=== PATIENT | female | born 1955 | race Caucasian/White ===

== ENCOUNTER → 2017-01-06 | Outpatient (CLI) | payer MEDICAID, SELFPAY | PROVIDERS: Family Provider Physician Assistant; Visit Provider Physician Assistant | DX: R10.13 Epigastric pain (principal) ==

== ENCOUNTER 2017-02-11 07:10 | Day surgery (SDC) | payer MEDICAID, SELFPAY ==
[2017-02-10 11:09] VITALS: BMI 31.6
[2017-02-11] VITALS (10 sets, daily range): BP systolic 113–131; BP diastolic 65–78; PULSE 62–72; RESP 12–20; TEMP 36.3–36.4; O2SAT 94–100
--- NOTE | 2017-02-11 08:32 | HMH.SCOPE ---
- Procedure: Date/Time of Procedure:: 02/11/17 08:32 Procedure Performed:: Esophagogastroduodenoscopy with biopsies Indications:: 61-year-old white female from [place]. For about 3 months she has had epigastric pain. She states that when she drinks coffee or diet carbonated beverages she has pain described as burning and nausea. She also has chronic loose stools but underwent normal colonoscopy 2 years ago at [facility]. Plan was made for upper endoscopy. Of note, the patient is on sucralfate. Performing Provider:: Car Heath MD Referring Provider:: Tiffanie dickinson Sedation:: Versed, fentanyl Procedure:: Esophagogastroduodenoscopy with biopsies Findings:: Consent was obtained and patient was taken to endoscopy procedure room. Adequate intravenous sedation was achieved. Olympus endoscope was inserted via the oropharynx. Esophagus appeared normal. There is no evidence of any stricture or Dumas's esophagus. Stomach was cannulated and insufflated. Retroflexion revealed no evidence of any significant hiatal hernia. There was some linear gastritis resembling watermelon stomach . There is also a couple patchy exudative erosions. Pylorus was normal. Duodenal bulb and sweep were normal. Gastric antral mucosal biopsy was obtained for CLOtest for H. pylori. Biopsies were obtained of the areas of gastritis. A couple of biopsies were obtained of the gastroesophageal junction. Impressions:: Gastritis Recommendations:: Follow-up on biopsy results. May benefit from proton pump inhibitors with or without the continue to sucralfate. Treat H. pylori if positive Complications:: None Estimated blood obtained (mL): 2
== END 2017-02-11 09:45 | disposition home or self-care (01) ==
LOC: OUTP 07:13
PROVIDERS: PCP Emergency Medicine; Visit Provider Surgery
PROC: 0DJ08ZZ Inspection of Upper Intestinal Tract, Via Natural or Artificial Opening Endoscopic (ICD-10-PCS; CPT 43235; principal; 2017-02-11 08:00)
DX: K29.70 Gastritis, unspecified, without bleeding (principal)
CPT/HCPCS: 43239; 87339; 99152

== ENCOUNTER 2017-02-16 10:01 | Emergency (ER) | payer MEDICAID, SELFPAY ==
[2017-02-16 10:32] VITALS: BP 174/80; PULSE 102; RESP 14; TEMP 37.3; O2SAT 97; BMI 31.2
[2017-02-16 22:13] LABS: UTC Influenza A Antigen Negative (Negative); UTC Influenza B Antigen Negative (Negative)
== END 2017-02-16 12:00 | disposition home or self-care (01) ==
PROVIDERS: Emergency Provider Physician Assistant; PCP Emergency Medicine
DX: R05 Cough (principal); I10 Essential (primary) hypertension; E03.9 Hypothyroidism, unspecified; Z79.899 Other long term (current) drug therapy
CPT/HCPCS: 87276; 87804; 99202

== ENCOUNTER → 2017-05-16 12:29 | Outpatient (CLI) | payer MEDICAID, SELFPAY ==
[2017-05-16 12:49] LABS: Blood Urea Nitrogen 14 mg/dL (7-18); Creatinine,Serum 0.81 mg/dL (0.55-1.02); Estimated Glomerular Filt Rate 72 ml/min (>60); GFR (African American) 87 ML/MIN (>60)
--- NOTE | 2017-05-16 13:58 | CT_ITS ---
CT angio abdomen pelvis COMPARISON: CT scan abdomen pelvis 11/07/2016 HISTORY: Persistent abdominal pain clinical suspicion of possible abdominal angina and/or decreased blood flow to the bowel TECHNIQUE: Multiple axial scans obtained from hemidiaphragms the pelvic floor after injection of IV contrast. Sagittal and coronal reformats were evaluated as well. Also 3-D volume rendering imaging of the vascular anatomy was reviewed. FINDINGS: The lower lung grace are clear. Liver spleen stomach and pancreas appear normal. There has been a previous cholecystectomy. The adrenal glands are normal. The kidneys are normal size and show symmetrical function both appearing normal. The small bowel appears grossly normal. I do not definitely identify the appendix but there are no pericecal inflammatory changes. There is moderate stool throughout the colon, there is minimal diverticular disease of the sigmoid colon without diverticulitis. Urinary bladder is grossly normal. There is excellent vascular opacification. There is no evidence of aortic aneurysm. 3-D volume rendering imaging demonstrates a normal-appearing celiac artery and severe mesenteric artery and its branches. The inferior mesenteric artery is identified as well which appears grossly normal. There are single renal arteries bilaterally both appearing normal. The aortic bifurcation appears normal and the common iliac arteries appear normal. IMPRESSION: 1. Normal CT angiogram of the abdomen no vascular abnormality identified. 2. Minimal diverticulosis of the sigmoid colon without diverticulitis
--- NOTE | 2017-05-16 15:56 | HMH.ITSHM ---
OMEPRAZOLE AMLODIPINE ALENDRONATE BISOPROLOL FUMARATE PANTOPRAZOLE
== END ==
PROVIDERS: PCP Emergency Medicine; Visit Provider Surgery
DX: K21.9 Gastro-esophageal reflux disease without esophagitis (principal)
CPT/HCPCS: 36415; 74174; 82565; 84520; Q9967

== ENCOUNTER → 2017-06-25 10:38 | Outpatient (REF) | payer MEDICAID, SELFPAY ==
[2017-06-25 13:40] LABS: Basophils % 0.5 % (0.1-2.0); Eosinophils # 0.1 K/mm3 (0.0-0.4); Eosinophils % 1.2 % (0.1-12.0); Hematocrit 42.7 % (37.0-47.0); Hemoglobin 14.2 g/dL (12.2-16.2); Lymphocytes # 2.2 K/mm3 (0.7-4.5); Lymphocytes % 35.9 K/mm3 (10-50); Mean Corpuscular HGB Conc 33.2 g/dL (31.8-35.4); Mean Corpuscular Hemoglobin 28.7 pg (27.0-31.2); Mean Corpuscular Volume 86.4 fl (81-99); Mean Platelet Volume 7.5 fl (7.4-10.4); Monocytes # 0.3 K/mm3 (0.1-1.0); Monocytes % 5.3 % (1.7-9.3); Neutrophils # 3.4 K/mm3 (1.8-7.8); Neutrophils % 57.2 % (37.0-80.0); Platelet Count 232 K/mm3 (142-424); Red Blood Count 4.94 M/mm3 (4.20-5.40)
[2017-06-25 14:39] LABS: Alanine Aminotransferase 36 U/L (12-78); Albumin Level 4.2 gm/dL (3.4-5.0); Albumin/Globulin Ratio 1.4 (1.1-1.8); Alkaline Phosphatase 82 U/L (46-116); Aspartate Amino Transferase 23 U/L (15-37); Bilirubin,Total 0.3 mg/dL (0.2-1.0); Blood Urea Nitrogen 12 mg/dL (7-18); Calcium 9.7 mg/dL (8.5-10.1); Chloride 106 mmol/L (98-107); Chol/HDL Ratio 3.4 (1-3.5); Cholesterol 186 mg/dL (140-200); Creatinine,Serum 0.77 mg/dL (0.55-1.02); Estimated Glomerular Filt Rate 76 ml/min (>60); GFR (African American) 92 ML/MIN (>60); Glucose 95 mg/dL (74-106); HDL Cholesterol 55 mg/dL (29-89); LDL Cholesterol 112 mg/dL (0-130); Potassium 4.6 mmoL/L (3.5-5.1); Sodium 142 mmol/L (136-145); T4 (Thyroxine) 6.4 ug/dl (4.7-13.3); Thyroid Stimulating Hormone 14.84 uIU/ml (0.358-3.740); Total Protein,Serum 7.2 gm/dL (6.4-8.2); Triglycerides 93 mg/dL (30-200); VLDL Cholesterol 19 mg/dL (0-40)
[2017-06-25 14:41] LABS: Anion Gap 15.6 mEq/L (5-15); Carbon Dioxide 25 mmol/L (21.0-32.0)
[2017-06-26 13:32] LABS: Vitamin D 25 Hydroxy 13.8 ng/mL (30.0-100.0)
== END ==
LOC: LAB 10:38
PROVIDERS: Visit Provider Physician Assistant
DX: E03.9 Hypothyroidism, unspecified (principal); I10 Essential (primary) hypertension
CPT/HCPCS: 80053; 80061; 82652; 84436; 84443; 85025

== ENCOUNTER → 2017-12-01 15:31 | Outpatient (REF) | payer MEDICAID, SELFPAY ==
[2017-12-01 17:55] LABS: Basophils % 0.3 % (0.1-2.0); Eosinophils # 0.1 K/mm3 (0.0-0.4); Eosinophils % 0.7 % (0.1-12.0); Hematocrit 41.7 % (37.0-47.0); Hemoglobin 14.1 g/dL (12.2-16.2); Lymphocytes # 2.4 K/mm3 (0.7-4.5); Lymphocytes % 37.3 K/mm3 (10-50); Mean Corpuscular HGB Conc 33.8 g/dL (31.8-35.4); Mean Corpuscular Hemoglobin 29.6 pg (27.0-31.2); Mean Corpuscular Volume 87.8 fl (81-99); Mean Platelet Volume 8.4 fl (7.4-10.4); Monocytes # 0.3 K/mm3 (0.1-1.0); Monocytes % 5.1 % (1.7-9.3); Neutrophils # 3.6 K/mm3 (1.8-7.8); Neutrophils % 56.6 % (37.0-80.0); Platelet Count 257 K/mm3 (142-424); Red Blood Count 4.75 M/mm3 (4.20-5.40); Red Cell Distribution Width 13.5 % (11.5-17.5); White Blood Count 6.3 K/mm3 (4.8-10.8)
[2017-12-01 18:26] LABS: Alanine Aminotransferase 35 U/L (12-78); Albumin Level 4.2 gm/dL (3.4-5.0); Albumin/Globulin Ratio 1.4 (1.1-1.8); Alkaline Phosphatase 76 U/L (46-116); Anion Gap 12.3 mEq/L (5-15); Aspartate Amino Transferase 22 U/L (15-37); Bilirubin,Total 0.4 mg/dL (0.2-1.0); Blood Urea Nitrogen 12 mg/dL (7-18); Calcium 8.9 mg/dL (8.5-10.1); Carbon Dioxide 27 mmol/L (21.0-32.0); Chloride 106 mmol/L (98-107); Cholesterol 178 mg/dL (140-200); Creatinine,Serum 0.75 mg/dL (0.55-1.02); Estimated Glomerular Filt Rate 78 ml/min (>60); Free T4 (Free Thyroxine) 0.92 ng/dl (0.76-1.46); GFR (African American) 95 ML/MIN (>60); Glucose 92 mg/dL (74-106); HDL Cholesterol 60 mg/dL (29-89); LDL Cholesterol 104 mg/dL (0-130); Potassium 4.3 mmoL/L (3.5-5.1); Sodium 141 mmol/L (136-145); Thyroid Stimulating Hormone 5.65 uIU/ml (0.358-3.740); Total Protein,Serum 7.2 gm/dL (6.4-8.2); Triglycerides 69 mg/dL (30-200); VLDL Cholesterol 14 mg/dL (0-40)
[2017-12-03 15:55] LABS: Vitamin D 25 Hydroxy 22.5 ng/mL (30.0-100.0)
== END ==
LOC: LAB 15:31
PROVIDERS: PCP Physician Assistant; Visit Provider Physician Assistant
DX: E03.9 Hypothyroidism, unspecified (principal); E55.9 Vitamin D deficiency, unspecified; I10 Essential (primary) hypertension; I48.0 Paroxysmal atrial fibrillation
CPT/HCPCS: 80053; 80061; 82652; 84439; 84443; 85025

== ENCOUNTER → 2018-05-07 13:48 | Outpatient (CLI) | payer MEDICAID, SELFPAY ==
[2018-05-07 14:06] LABS: Basophils % 0.3 % (0.1-2.0); Eosinophils % 0.6 % (0.1-12.0); Hematocrit 41.2 % (37.0-47.0); Hemoglobin 13.9 g/dL (12.2-16.2); Lymphocytes # 2.2 K/mm3 (0.7-4.5); Lymphocytes % 35.4 % (10-50); Mean Corpuscular HGB Conc 33.7 g/dL (31.8-35.4); Mean Corpuscular Hemoglobin 29.9 pg (27.0-31.2); Mean Corpuscular Volume 88.7 fl (81-99); Mean Platelet Volume 7.5 fl (7.4-10.4); Monocytes # 0.3 K/mm3 (0.1-1.0); Monocytes % 5.2 % (1.7-9.3); Neutrophils # 3.6 K/mm3 (1.8-7.8); Neutrophils % 58.5 % (37.0-80.0); Platelet Count 243 K/mm3 (142-424); Red Blood Count 4.64 M/mm3 (4.20-5.40); Red Cell Distribution Width 13.9 % (11.5-17.5); White Blood Count 6.2 K/mm3 (4.8-10.8)
[2018-05-07 14:25] LABS: Alanine Aminotransferase 35 U/L (12-78); Albumin Level 4.1 gm/dL (3.4-5.0); Albumin/Globulin Ratio 1.3 (1.1-1.8); Alkaline Phosphatase 73 U/L (46-116); Anion Gap 16.4 mEq/L (5-15); Aspartate Amino Transferase 20 U/L (15-37); Bilirubin,Total 0.4 mg/dL (0.2-1.0); Blood Urea Nitrogen 16 mg/dL (7-18); Calcium 9.2 mg/dL (8.5-10.1); Carbon Dioxide 25 mmol/L (21.0-32.0); Chloride 106 mmol/L (98-107); Chol/HDL Ratio 2.7 (1-3.5); Cholesterol 180 mg/dL (140-200); Creatinine,Serum 0.67 mg/dL (0.55-1.02); Estimated Glomerular Filt Rate 89 ml/min (>60); GFR (African American) 108 ML/MIN (>60); Globulin 3.1 gm/dl (1.3-3.2); Glucose 96 mg/dL (74-106); HDL Cholesterol 66 mg/dL (29-89); LDL Cholesterol 99 mg/dL (0-130); Potassium 4.4 mmoL/L (3.5-5.1); Sodium 143 mmol/L (136-145); T4 (Thyroxine) 8.4 ug/dl (4.7-13.3); Thyroid Stimulating Hormone 5.02 uIU/ml (0.358-3.740); Total Protein,Serum 7.2 gm/dL (6.4-8.2); Triglycerides 76 mg/dL (30-200); VLDL Cholesterol 15 mg/dL (0-40)
[2018-05-08 09:02] LABS: Vitamin D 25 Hydroxy 15.3 ng/mL (30.0-100.0)
== END ==
PROVIDERS: Visit Provider Physician Assistant
DX: E03.9 Hypothyroidism, unspecified (principal); I10 Essential (primary) hypertension; E55.9 Vitamin D deficiency, unspecified
CPT/HCPCS: 80053; 80061; 82652; 84436; 84443; 85025

== ENCOUNTER → 2018-05-13 12:04 | Outpatient (CLI) | payer MEDICAID, SELFPAY ==
--- NOTE | 2018-05-13 12:10 | XR_ITS ---
EXAM: XR lumbar spine min 4V HISTORY: ITS.REASON: Low back pain, sciatica ORDERING PHYSICIAN: AMANDA Link PATIENT AGE: 62 years COMPARISON: CT scan abdomen pelvis 05/16/2017 FINDINGS: There is normal curvature and alignment. All lumbar vertebrae appear intact. There is minor disc space narrowing at the L2-3 level with minimal osteophytic spurring. There is no pars defect. The SI joints are normal. There are minor hypertrophic facet changes at the L3-4, L4-5 and L5-S1 levels. IMPRESSION: Minor degenerative disc disease L2-3 along with facet changes lower lumbar spine
== END ==
PROVIDERS: PCP Physician Assistant; Visit Provider Physician Assistant
DX: M54.40 Lumbago with sciatica, unspecified side (principal); M54.5 Low back pain
CPT/HCPCS: 72110

== ENCOUNTER → 2018-06-02 12:35 | Outpatient (CLI) | payer MEDICAID, SELFPAY ==
--- NOTE | 2018-06-02 12:37 | MM_ITS ---
MM Dig screening mamm BI w/CAD CAD Screening COMPARISON: Digital mammograms with CAD 11/09/2015 INDICATION: There is no personal or family history of breast cancer TECHNIQUE: Standard CC and MLO images were obtained. R2 CAD reviewed. FINDINGS: The breasts are composed primarily of fat with minimal scattered fibroglandular densities in each breast. There is faint arterial calcination in each breast. There is no suspicious lesion and there are no suspicious microcalcifications. IMPRESSION: Fibro fatty parenchyma with no suspicious lesion seen BI-RADS Category: 2 Benign Finding(s) RECOMMENDED FOLLOW-UP: 1YR - 1 YEAR FOLLOW-UP (A letter has been sent to the patient regarding results of the study.)
== END ==
PROVIDERS: PCP Physician Assistant; Visit Provider Physician Assistant
DX: Z12.31 Encounter for screening mammogram for malignant neoplasm of breast (principal)
CPT/HCPCS: 77067

== ENCOUNTER 2018-07-29 10:00 | Outpatient (RCR) | payer MEDICAID, SELFPAY ==
--- NOTE | 2018-06-09 16:48 | HMH.PTOPEV ---
PT Outpatient Evaluation Rehab PT Outpatient Evaluation Start: 06/09/18 15:30 Freq: Status: Active Protocol: Document 06/09/18 15:30 PDESEROUX (Rec: 06/09/18 16:48 [email or web address] [id number]) Electronically Signed By Kaden Camejo, PT 06/09/18 15:30 Outpatient Therapy Subjective History Subjective History Pt. is a 62 year old female who presents to outpatient PT for complaints of chronic R hip/RLB/RLE pain on insidious onset that worsened 5 months ago. Pt. reports shooting/burning pain inferiorly down RLE just inferior to her R knee. Recent diagnostic imaging postivie for minor degenerative disc disease L2-3 along with facet changes lower lumbar spine. Pt . also reports having cortisone injections in the past that did not provide symptom relief. Current medications include Lortab, blood pressure medicine , Vitamin D, and thyroid medicine. PMH includes HTN, L femoral surgical reconstruction, complete hysterectomy, and preosteoperotic. Chief Complaint Pain,Gives out/Unstable, Paresthesia Symptom Type Sharp,Burning,Shooting Symptoms Relieved By Rest/Positioning,Heat,Ice, Prescription Meds Symptoms Aggravated By Supine,Sitting,Standing, Bending/Stooping,Physical Activity,Walking,Lifting Prior Functional Limitations None Current Functional Limitations Lifting,Housework,Driving, Sleeping,Standing,Sitting, Squatting,Recreation Activity, Walking,Stairs,Balance,Bending /Stooping Symptom Description Constant and Continuous Level of pain today (0-10) 7 Pain scale - at its best (0-10) 3 Pain scale - at its worst (0-10) 10 Lumbopelvic Eval Posture Thoracic Spine Posture Standing Position Increased Kyphosis Lumbar Spine Posture Standing Position Flattened Assistive device Assistive Devices None / NA Gait Observation General Gait Pattern Observation Antalgic Gait,Decrease Weight
== END 2018-07-29 13:00 | disposition home or self-care (01) ==
LOC: PT.CARL 10:00
PROVIDERS: Visit Provider Physician Assistant
DX: M54.31 Sciatica, right side (principal)
CPT/HCPCS: 97010; 97012; 97014; 97033; 97110; 97140; 97163; G0283

== ENCOUNTER → 2018-08-26 12:51 | Outpatient (CLI) | payer MEDICAID, SELFPAY ==
--- NOTE | 2018-08-26 12:52 | MR_ITS ---
MR lumbar spine wo con, MR 3-d myelogram/MRCP HISTORY: Lower back pain into right leg and hip, symptoms off and on X1 year. ITS.REASON: back pain ORDERING PHYSICIAN: AMANDA Mistry PATIENT AGE: 62 years Comparison: 05/13/2018 TECHNIQUE: Standard multiplanar multiecho sequences are performed without contrast. 3-D MIP and myelographic images are also rendered and reviewed FINDINGS: Normal alignment. The spinal cord ends at the L1 level. T12-L1: Unremarkable. L1-L2: Unremarkable. L2-L3: Mild facet and ligamentum flavum hypertrophy. Mild bilateral lateral recess narrowing. L3-L4: Unremarkable. L4-5: Minimal bulging disc with mild facet and ligamentum flavum hypertrophy with mild bilateral lateral recess narrowing L5-S1: Minimal bulging disc. Mild bilateral foraminal narrowing. No canal stenosis or disc herniation. IMPRESSION: Mild lumbar spondylosis. Please see above for detailed description at each level. No disc herniation or canal stenosis.
== END ==
PROVIDERS: PCP Physician Assistant; Visit Provider Physician Assistant
DX: M54.41 Lumbago with sciatica, right side (principal)
CPT/HCPCS: 72148; 76376

== ENCOUNTER → 2018-09-21 08:38 | Outpatient (POV) | payer MEDICAID, SELFPAY ==
[2018-09-21 08:42] VITALS: BP 166/95; PULSE 89; RESP 18; O2SAT 98; BMI 31.1
--- NOTE | 2018-09-21 10:02 | HMH.PMCON ---
Assessment and Plan (1) Degenerative joint disease (DJD) of lumbar spine Current visit: Yes Status: Chronic Category: Medical Code(s): M47.816 - Spondylosis without myelopathy or radiculopathy, lumbar region (2) Sacroiliitis Current visit: Yes Status: Chronic Category: Medical Code(s): M46.1 - Sacroiliitis, not elsewhere classified - Assessment and plan all Dx Assessment and Plan for all problems:: We will start by scheduling a right SI joint injection for the patient. I believe it may be beneficial given the symptomology. Patient and I discussed if it was not beneficial potentially a lumbar epidural steroid injection. I will follow-up with the patient after injection reassess her symptoms at that time she is been instructed to call the office if she has any issues prior to her next appointment. Dr. Adame has reviewed this note and agrees with this plan of care. This note was dictated using voice recognition software and may contain errors or omissions HPI - Data of Consult Consult date: 09/21/18 Requesting Physician: Sharri Shah APRN Primary Care Provider: AMANDA Mistry - Consult Narrative Reason for consult: Back pain, right leg pain History of present illness: Ms. Reeder is a 62 year old female who presents today for consultation in regards to her right lower back pain that radiates to her right leg to the knee. This happened after a fall in which she had her left femur operated on. Patient does have an MRI showing some degenerative disc disease along with bulging disc and is her low back however her pain is over the right SI joint. She rates her pain today a 6 out of 10. She is completed physical therapy however she did not get much relief from it. She is unable to take NSAIDs due to gastric issues. She is not on any anticoagulation therapy. She is continuing a home stretching program. She is had this pain for over a year. CC: Sharri Shah APRN [facility] History I have reviewed the patient's past medical history: Yes 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: Reports:: Atrial Fibrillation, Carotid Stenosis, Hypertension, Internal Pacemaker Denies:: Diabetes Mellitus Type 1, Diabetes Mellitus Type 2, Lung Disease, Seizures *Have you ever received a pneumonia vaccine?: Yes *Have you received a flu vaccine this season?: Yes Other 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: Reports: Arthritis, Hypothyroidism, Other Laterality Cases: Left: Other Other Surgeries: Yes: Cardiac Catheterization (found abnormal heart beat), Cholecystectomy, Colonoscopy, EGD, Hysterectomy-Total, Pacemaker, Other (Gallbladder) Amputation: No Fractures: No - *Social History Smoking Status: Never smoker Alcohol Intake: never Alcohol Intake Frequency:: other Substance Use Type: denies use *Occupational Status:: other Housing: house Household Members: spouse *Travel in the last 8 weeks: None Family Hx:: Cancer Review of Systems - Review of Systems ROS General: no recent weight change, no fever, no sleep disturbances Respiratory: no cough, no shortness of air, no recurring pulmonary infections Cardiovascular/Peripheral Vascular: No chest pain, No palpitations, no edema, no shortness of breath. Gastrointestinal: no incontinence, normal bowel movements reported Genitourinary: no incontinence Musculoskeletal: SI joint pain, low back pain Psychiatric: normal mood/ affect Neurological: [denies weakness in extremities], [denies balance issues] Meds Home Medications Medication Instructions Recorded Confirmed Type cholecalciferol (vitamin D3) 1,000 1,000 unit PO ONCE 90 Days #90 cap 12/01/17 09/02/18 Rx unit capsule clonidine HCl 0.3 mg tablet 0.3 mg PO Q8H #90 tab 12/01/17 09/02/18 Rx ergocalciferol (vitamin D2) 50,000 50,000 unit PO QWEEK 90 Days #14 12/01/17 09/02/18 Rx unit capsule cap losartan 100 1 tab PO DAILY #90 tab 12/01/17 09/02/18 Rx mg-hydrochlorothiazide 25 mg tablet pantoprazole 40 mg tablet,delayed 40 mg PO QDAY
--- NOTE | 2018-09-21 10:11 | P.CONS_ITS ---
Assessment and Plan (1) Degenerative joint disease (DJD) of lumbar spine Current visit: Yes Status: Chronic Category: Medical Code(s): M47.816 - Spondylosis without myelopathy or radiculopathy, lumbar region (2) Sacroiliitis Current visit: Yes Status: Chronic Category: Medical Code(s): M46.1 - Sacroiliitis, not elsewhere classified - Assessment and plan all Dx Assessment and Plan for all problems:: We will start by scheduling a right SI joint injection for the patient. I believe it may be beneficial given the symptomology. Patient and I discussed if it was not beneficial potentially a lumbar epidural steroid injection. I will follow-up with the patient after injection reassess her symptoms at that time she is been instructed to call the office if she has any issues prior to her next appointment. Dr. Adame has reviewed this note and agrees with this plan of care. This note was dictated using voice recognition software and may contain errors or omissions HPI - Data of Consult Consult date: 09/21/18 Requesting Physician: Sharri Shah APRN Primary Care Provider: AMANDA Mistry - Consult Narrative Reason for consult: Back pain, right leg pain History of present illness: Ms. Reeder is a 62 year old female who presents today for consultation in regards to her right lower back pain that radiates to her right leg to the knee. This happened after a fall in which she had her left femur operated on. Patient does have an MRI showing some degenerative disc disease along with bulging disc and is her low back however her pain is over the right SI joint. She rates her pain today a 6 out of 10. She is completed physical therapy however she did not get much relief from it. She is unable to take NSAIDs due to gastric issues. She is not on any anticoagulation therapy. She is continuing a home stretching program. She is had this pain for over a year. CC: Sharri Shah APRN [facility] History I have reviewed the patient's past medical history: Yes 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: Reports:: Atrial Fibrillation, Carotid Stenosis, Hypertension, Internal Pacemaker Denies:: Diabetes Mellitus Type 1, Diabetes Mellitus Type 2, Lung Disease, Seizures *Have you ever received a pneumonia vaccine?: Yes *Have you received a flu vaccine this season?: Yes Other 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: Reports: Arthritis, Hypothyroidism, Other Laterality Cases: Left: Other Other Surgeries: Yes: Cardiac Catheterization (found abnormal heart beat), Cholecystectomy, Colonoscopy, EGD, Hysterectomy-Total, Pacemaker, Other (G allbladder) Amputation: No Fractures: No - *Social History Smoking Status: Never smoker Alcohol Intake: never Alcohol Intake Frequency:: other Substance Use Type: denies use *Occupational Status:: other Housing: house Household Members: spouse *Travel in the last 8 weeks: None Family Hx:: Cancer Review of Systems - Review of Systems ROS General: no recent weight change, no fever, no sleep disturbances Respiratory: no cough, no shortness of air, no recurring pulmonary infections Cardiovascular/Peripheral Vascular: No chest pain, No palpitations, no edema, no shortness of breath. Gastrointestinal: no incontinence, normal bowel movements reported Genitourinary: no incontinence Musculoskeletal: SI joint pain, low back pain Psychiatric: normal mood/ affect Neurological: [denies weakness in extremities], [denies balance issues] Meds Home Medications Medication Instructions Recorded Confi
== END ==
PROVIDERS: PCP Physician Assistant; Visit Provider Clinical Nurse Specialist Family Health
DX: M47.816 Spondylosis without myelopathy or radiculopathy, lumbar region (principal); M46.1 Sacroiliitis, not elsewhere classified
CPT/HCPCS: 99212

== ENCOUNTER → 2018-10-26 09:31 | Outpatient (POV) | payer MEDICAID, SELFPAY ==
[2018-10-26 10:17] VITALS: BP 157/83; PULSE 88; RESP 18; O2SAT 98; BMI 30.5
--- NOTE | 2018-10-26 10:34 | HMH.PAINSOAP ---
[facility] Pain Management SOAP Note Subjective:: Patient is a pleasant 62-year-old white female who presents today for follow-up after right SI joint injection. She did not get any relief from it. Patient and I have discussed potential epidural steroid injection and she would like to pursue this. Patient rates her pain a 7 out of 10 with right leg radiation. She does have an MRI showing degenerative disc disease. She is not on any anticoagulation therapy. She has failed conservative measures including anti-inflammatories. ROS General: no recent weight change, no fever, no sleep disturbances Respiratory: no cough, no shortness of air, no recurring pulmonary infections Cardiovascular/Peripheral Vascular: No chest pain, No palpitations, no edema, no shortness of breath. Gastrointestinal: no incontinence, normal bowel movements reported Genitourinary: no incontinence Musculoskeletal: Back pain, leg pain Psychiatric: normal mood/ affect Neurological: [denies weakness in extremities], [denies balance issues] Objective:: Physical Exam General: Alert and oriented x3, no acute distress, pleasant and cooperative, [on room air] Lungs: Resps E/U, Symmetrical chest expansion, Eyes: PERRL Musculoskeletal: Flexion and extension of lumbar spine somewhat guarded secondary to pain, deep tendon reflexes normal, strength in upper and lower extremities [5/5], slightly antalgic gait noted Neurological: speech clear, health diagnostics teacher equal, no gross sensory deficits Assessment:: Degenerative disc disease lumbar spine with lumbar radiculopathy Plan:: We will schedule an L4-L5 lumbar epidural steroid injection for the patient. Patient's not on any anticoagulation therapy. Patient is continuing a home stretching program. I will follow-up with the patient after injection reassess her symptoms at that time. Dr. Adame has reviewed this note and agrees with this plan of care. This note was dictated using voice recognition software and may contain errors or omissions [facility] History 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: Reports:: Atrial Fibrillation, Carotid Stenosis, Hypertension, Internal Pacemaker Denies:: Cancer, Diabetes Mellitus Type 1, Diabetes Mellitus Type 2, Lung Disease, MRSA, Seizures *Have you ever received a pneumonia vaccine?: Yes *Have you received a flu vaccine this season?: Yes Other 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: Reports: Arthritis, Hypothyroidism, Other Laterality Cases: Left: Other Other Surgeries: Yes: Cardiac Catheterization (found abnormal heart beat), Cholecystectomy, Colonoscopy, EGD, Hysterectomy-Total, Pacemaker, Other (Gallbladder) Amputation: No Fractures: No - *Social History Smoking Status: Never smoker Alcohol Intake: never Alcohol Intake Frequency:: other Substance Use Type: denies use *Occupational Status:: other Housing: house Household Members: spouse *Travel in the last 8 weeks: None Family Hx:: Cancer
--- NOTE | 2018-10-26 10:39 | P.CONS_ITS ---
[facility] Pain Management SOAP Note Subjective:: Patient is a pleasant 62-year-old white female who presents today for follow-up after right SI joint injection. She did not get any relief from it. Patient and I have discussed potential epidural steroid injection and she would like to pursue this. Patient rates her pain a 7 out of 10 with right leg radiation. She does have an MRI showing degenerative disc disease. She is not on any anticoagulation therapy. She has failed conservative measures including anti- inflammatories. ROS General: no recent weight change, no fever, no sleep disturbances Respiratory: no cough, no shortness of air, no recurring pulmonary infections Cardiovascular/Peripheral Vascular: No chest pain, No palpitations, no edema, no shortness of breath. Gastrointestinal: no incontinence, normal bowel movements reported Genitourinary: no incontinence Musculoskeletal: Back pain, leg pain Psychiatric: normal mood/ affect Neurological: [denies weakness in extremities], [denies balance issues] Objective:: Physical Exam General: Alert and oriented x3, no acute distress, pleasant and cooperative, [on room air] Lungs: Resps E/U, Symmetrical chest expansion, Eyes: PERRL Musculoskeletal: Flexion and extension of lumbar spine somewhat guarded secondary to pain, deep tendon reflexes normal, strength in upper and lower extremities [5/5], slightly antalgic gait noted Neurological: speech clear, document management analyst equal, no gross sensory deficits Assessment:: Degenerative disc disease lumbar spine with lumbar radiculopathy Plan:: We will schedule an L4-L5 lumbar epidural steroid injection for the patient. Patient's not on any anticoagulation therapy. Patient is continuing a home stretching program. I will follow-up with the patient after injection reassess her symptoms at that time. Dr. Adame has reviewed this note and agrees with this plan of care. This note was dictated using voice recognition software and may contain errors or omissions [facility] History 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: Reports:: Atrial Fibrillation, Carotid Stenosis, Hypertension, Internal Pacemaker Denies:: Cancer, Diabetes Mellitus Type 1, Diabetes Mellitus Type 2, Lung Disease, MRSA, Seizures *Have you ever received a pneumonia vaccine?: Yes *Have you received a flu vaccine this season?: Yes Other 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: Reports: Arthritis, Hypothyroidism, Other Laterality Cases: Left: Other Other Surgeries: Yes: Cardiac Catheterization (found abnormal heart beat), Cholecystectomy, Colonoscopy, EGD, Hysterectomy-Total, Pacemaker, Other (Gallbladder) Amputation: No Fractures: No - *Social History Smoking Status: Never smoker Alcohol Intake: never Alcohol Intake Frequency:: other Substance Use Type: denies use *Occupational Status:: other Housing: house Household Members: spouse *Travel in the last 8 weeks: None Family Hx:: Cancer
== END ==
PROVIDERS: PCP Physician Assistant; Visit Provider Clinical Nurse Specialist Family Health
DX: M51.16 Intervertebral disc disorders with radiculopathy, lumbar region (principal)
CPT/HCPCS: 99212

== ENCOUNTER → 2019-02-15 13:44 | Outpatient (POV) | payer OTHER, SELFPAY ==
--- NOTE | 2019-02-15 14:09 | HMH.PAINSOAP ---
[facility] Pain Management SOAP Note Subjective:: Patient is a pleasant 63-year-old white female who presents today for consultation. Patient was recently visiting family in [place] where she had some back pain. She was taken to treatment center and given some Flexeril she states this was beneficial. Patient has had SI joint injections along with epidurals with no relief. Patient has been on gabapentin before and states that it was too low for her to notice any market change with it. She rates her pain a 7 of 10 mostly in her low back. ROS General: no recent weight change, no fever, no sleep disturbances Respiratory: no cough, no shortness of air, no recurring pulmonary infections Cardiovascular/Peripheral Vascular: No chest pain, No palpitations, no edema, no shortness of breath. Gastrointestinal: no new onset incontinence, normal bowel movements reported Genitourinary: no new onset incontinence Musculoskeletal: Back pain, leg pain Psychiatric: normal mood/ affect, Neurological: [denies new onset weakness in extremities], [denies new onset balance issues] Objective:: Physical Exam General: Alert and oriented x3, no acute distress, pleasant and cooperative, [on room air] Lungs: Resps E/U, Symmetrical chest expansion, Eyes: PERRL Musculoskeletal: Flexion and extension of lumbar spine somewhat guarded secondary to pain, deep tendon reflexes normal, strength in upper and lower extremities [5/5], antalgic gait noted Neurological: speech clear, bench scientist equal, no gross sensory deficits Assessment:: Degenerative disc disease lumbar spine with lumbar radiculopathy Plan:: We will start her on Flexeril 10 mg 1 p.o. 3 times daily and gabapentin 300 mg 1 p.o. 3 times daily. We will see her back in 1 month and reassess her symptoms at that time she is been instructed to call the office if she has any issues prior to her next appointment. Dr. Adame has reviewed this note and agrees with this plan of care. This note was dictated using voice recognition software and may contain errors or omissions [facility] History I have reviewed the patient's past medical history: Yes 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: Reports:: Atrial Fibrillation, Carotid Stenosis, Hypertension, Internal Pacemaker Denies:: Cancer, Diabetes Mellitus Type 1, Diabetes Mellitus Type 2, Lung Disease, MRSA, Seizures *Have you ever received a pneumonia vaccine?: No *Have you received a flu vaccine this season?: (n/a) Other 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: Reports: Arthritis, Hypothyroidism, Other Laterality Cases: Left: Other Other Surgeries: Yes: Cardiac Catheterization (found abnormal heart beat), Cholecystectomy, Colonoscopy, EGD, Hysterectomy-Total, Pacemaker, Other (Gallbladder) Amputation: No Fractures: No - *Social History Smoking Status: Never smoker Alcohol Intake: never Alcohol Intake Frequency:: other Substance Use Type: denies use *Occupational Status:: retired Housing: house Household Members: spouse *Travel in the last 8 weeks: None Family Hx:: Cancer
[2019-02-15 14:15] VITALS: BP 175/88; PULSE 92; RESP 18; O2SAT 98; BMI 33.3
== END ==
PROVIDERS: PCP Emergency Medicine; Visit Provider Clinical Nurse Specialist Family Health
DX: M51.16 Intervertebral disc disorders with radiculopathy, lumbar region (principal)
CPT/HCPCS: 99212

== ENCOUNTER → 2019-03-22 14:29 | Outpatient (POV) | payer OTHER, SELFPAY ==
[2019-03-22 15:20] VITALS: BP 140/78; PULSE 94; RESP 18; O2SAT 99; BMI 30.5
--- NOTE | 2019-03-23 08:23 | HMH.PAINSOAP ---
[facility] Pain Management SOAP Note Subjective:: She is a pleasant 63-year-old white female who presents today for follow-up. Patient has had SI joint injections without relief along with epidural injection she rates her pain a 7 out of 10 today. She was started on gabapentin and Flexeril and she states that this has been beneficial for her. Patient and I discussed further on her symptomology she feels to have quite a bit of neuropathic pain. We discussed adding Cymbalta she is interested in pursuing this. Most of her pain is in her low back down her legs. [facility] #[id number] reviewed. Patient does get [place] from her primary care physician at times. ROS General: no recent weight change, no fever, no sleep disturbances Respiratory: no cough, no shortness of air, no recurring pulmonary infections Cardiovascular/Peripheral Vascular: No chest pain, No palpitations, no edema, no shortness of breath. Gastrointestinal: no new onset incontinence, normal bowel movements reported Genitourinary: no new onset incontinence Musculoskeletal: Back pain, leg pain Psychiatric: normal mood/ affect Neurological: [denies new onset weakness in extremities], [denies new onset balance issues] Objective:: Physical Exam General: Alert and oriented x3, no acute distress, pleasant and cooperative, [on room air] Lungs: Resps E/U, Symmetrical chest expansion, Eyes: PERRL Musculoskeletal: Flexion and extension of lumbar spine somewhat guarded secondary to pain, deep tendon reflexes normal, strength in upper and lower extremities [5/5], slightly antalgic gait noted Neurological: speech clear, behaviorist equal, no gross sensory deficits Assessment:: Degenerative disc disease lumbar spine with lumbar radiculopathy Plan:: Patient is to continue her gabapentin 300 mg 1 p.o. 3 times daily and Flexeril 10 mg 1 p.o. 3 times daily as needed: We will add Cymbalta 30 mg 1 p.o. daily. Patient will be seen back in a month and reassessed at that time she has been instructed to call the office if she has any issues prior to her next appointment. Dr. Adame has reviewed this note and agrees with this plan of care. This note was dictated using voice recognition software and may contain errors or omissions [facility] History I have reviewed the patient's past medical history: Yes 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: Reports:: Atrial Fibrillation, Carotid Stenosis, Hypertension, Internal Pacemaker Denies:: Cancer, Diabetes Mellitus Type 1, Diabetes Mellitus Type 2, Lung Disease, MRSA, Seizures *Have you ever received a pneumonia vaccine?: Yes *Have you received a flu vaccine this season?: Yes Other 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: Reports: Arthritis, Hypothyroidism, Other Laterality Cases: Left: Other Other Surgeries: Yes: Cardiac Catheterization (found abnormal heart beat), Cholecystectomy, Colonoscopy, EGD, Hysterectomy-Total, Pacemaker, Other (Gallbladder) Amputation: No Fractures: No - *Social History Smoking Status: Never smoker Alcohol Intake: never Alcohol Intake Frequency:: other Substance Use Type: denies use *Occupational Status:: other Housing: house Household Members: spouse *Travel in the last 8 weeks: None Family Hx:: Cancer
== END ==
PROVIDERS: PCP Physician Assistant; Visit Provider Clinical Nurse Specialist Family Health
DX: M51.16 Intervertebral disc disorders with radiculopathy, lumbar region (principal)
CPT/HCPCS: 99212

== ENCOUNTER → 2019-06-08 09:49 | Outpatient (CLI) | payer OTHER, SELFPAY ==
--- NOTE | 2019-06-08 09:57 | XR_ITS ---
PROCEDURE: XR KNEE RT 4V CLINICAL INDICATION: right knee pain Recurrence fall with injury and pain COMPARISON: KNEE3L KNEE-3 VIEWS-LT from 09/09/2012 KNEE3R KNEE-3 VIEWS-RT from 09/09/2012 XR KNEE RT 3V from 04/13/2019 FINDINGS: No fracture or dislocation. No lytic or blastic change. There is normal mineralization. There is very slight decrease in the joint space medially on the weight-bearing views in there is very minimal osteophyte formation at the medial compartment and patellofemoral joint. There may be a small suprapatellar effusion. Other findings:None. IMPRESSION: Minimal osteoarthritic change with possible small suprapatellar effusion Dictated by: Jesús Barillas MD 06/08/2019 10:24 Electronically signed by Jesús Barillas MD in [place] 06/08/2019 10:24
== END ==
PROVIDERS: PCP Emergency Medicine; Visit Provider Orthopaedic Surgery
DX: M25.561 Pain in right knee (principal)
CPT/HCPCS: 73564

== ENCOUNTER → 2019-06-14 15:46 | Outpatient (CLI) | payer OTHER, SELFPAY ==
--- NOTE | 2019-06-14 15:46 | MR_ITS ---
PROCEDURE: MR KNEE RT WO CON CLINICAL INDICATION: right knee pain; evaluate for a meniscal tear Right knee pain, fall with injury and pain, twisting injury with pain and pain along the medial side of the knee. COMPARISON: No exams were available for comparison TECHNIQUE: Routine multiplanar multi echo sequences are performed without gadolinium enhancement. FINDINGS: The cruciate ligaments, collateral ligaments, patellar tendon, and quadriceps tendon have an unremarkable appearance. The patellar cartilage is fairly well preserved. There is some complex signal intensity along the lateral aspect of the posterior horn of the medial meniscus consistent with mild meniscal maceration and a small longitudinal tear for along the inferior surface of the meniscus. There is a medium-sized knee joint effusion. Mild osteoarthritic changes are present involving all 3 compartments. There is a complex Hollins's cyst measuring approximately 4.6 by 2 cm IMPRESSION: There are mild osteoarthritic changes with medium knee joint effusion with a complex Hollins's cyst and suggestion of a small longitudinal tear along the inferior surface and lateral aspect of the posterior horn of the medial meniscus Dictated by: Jesús Barillas MD 06/16/2019 15:51 Electronically signed by Jesús Barillas MD in [place] 06/16/2019 15:51
== END ==
PROVIDERS: PCP Emergency Medicine; Visit Provider Orthopaedic Surgery
DX: M25.561 Pain in right knee (principal); G89.29 Other chronic pain; S89.91XA Unspecified injury of right lower leg, initial encounter
CPT/HCPCS: 73721

== ENCOUNTER → 2019-06-26 08:07 | Outpatient (CLI) | payer OTHER, SELFPAY ==
[2019-06-26 08:33] LABS: Basophils % 0.5 % (0.1-2.0); Eosinophils % 0.7 % (0.1-12.0); Hematocrit 43.6 % (37.0-47.0); Hemoglobin 14.3 g/dL (12.2-16.2); Lymphocytes # 2.2 K/mm3 (0.7-4.5); Lymphocytes % 36.4 % (10-50); Mean Corpuscular HGB Conc 32.8 g/dL (31.8-35.4); Mean Corpuscular Hemoglobin 28.6 pg (27.0-31.2); Mean Corpuscular Volume 87.1 fl (81-99); Mean Platelet Volume 7.4 fl (7.4-10.4); Monocytes # 0.4 K/mm3 (0.1-1.0); Monocytes % 5.7 % (1.7-9.3); Neutrophils # 3.4 K/mm3 (1.8-7.8); Neutrophils % 56.7 % (37.0-80.0); Platelet Count 227 K/mm3 (142-424); Red Blood Count 5.01 M/mm3 (4.20-5.40); Red Cell Distribution Width 13.5 % (11.5-17.5); White Blood Count 6.1 K/mm3 (4.8-10.8)
--- NOTE | 2019-06-26 08:33 | ECG_ITS ---
APPROVED REPORT Exam: Resting ECG HR:78 bpm ECG Measurements Heart Rate 78 AXES NJ 126 P 59 QRSd 82 QRS 69 QT 392 T 48 QTc 446 <Conclusion> Normal sinus rhythm Low voltage QRS Poor r wave progression Abnormal ECG Electronically signed by : Thang Coleman, 06/28/2019 06:50:35
--- NOTE | 2019-06-26 08:39 | XR_ITS ---
PROCEDURE: XR CHEST 2V Patient Age:63Y CLINICAL HISTORY: HX OF HYPERTENSION, PRE-OP nonsmoker COMPARISON: CXR CHEST(2 VIEWS-NOT PORTABLE) from 07/16/2016 CXR CHEST(2 VIEWS-NOT PORTABLE) from 11/07/2016 CXR2V XR chest 2V from 01/15/2018 FINDINGS: PA and lateral chest performed. The lungs appear well expanded and clear with no active disease. Better expansion today than comparison 2017 2016 CXR exams. The cardiomediastinal silhouette and pulmonary vascularity are within normal limits. The lungs are clear without infiltrates, suspicious nodules, or pleural effusions. No acute bony abnormalities. Chest wall in T-spine unremarkable IMPRESSION: Stable chest with nothing acute. Lungs clear. Heart normal size Dictated by: Franco Bang MD 06/26/2019 13:32 Electronically signed by Franco Bang MD in [place] 06/26/2019 13:32
[2019-06-26 09:41] LABS: Chloride 105 mmol/L (98-107); Potassium 4.7 mmoL/L (3.5-5.1); Sodium 136 mmol/L (136-145)
[2019-06-26 09:44] LABS: Anion Gap 9.7 mEq/L (5-15); Blood Urea Nitrogen 14 mg/dl (7-17); Carbon Dioxide 26 mmol/L (22.0-30.0); Estimated Glomerular Filt Rate 72 ml/min (>60); GFR (African American) 88 ML/MIN (>60)
[2019-06-26 09:45] LABS: Calcium 9.5 mg/dl (8.4-10.2); Glucose 106 mg/dl (74-100)
[2019-06-27 08:29] LABS: Covid-19 Nasal PCR Sendout UK NOT DETECTED
== END ==
PROVIDERS: Visit Provider Orthopaedic Surgery
DX: Z01.818 Encounter for other preprocedural examination (principal); M17.11 Unilateral primary osteoarthritis, right knee
CPT/HCPCS: 36415; 71046; 80048; 85025; 93005; U0003

== ENCOUNTER 2019-06-28 09:21 | Day surgery (SDC) | payer OTHER, SELFPAY ==
--- NOTE | 2019-06-23 09:00 | SUR.PREOP ---
06/23/2019 @ 0900--PHONE CALL MADE TO PATIENT. PATIENT UNDERSTANDS THAT LAB WORK AND COVID TESTING NEEDS TO BE COMPLETED @ 0800 on 06/26/2019. PATIENT UNDERSTANDS IF LAB WORK AND COVID-19 TESTS ARE NOT COMPLETED BY 12PM ON THAT DATE, THE SURGERY SCHEDULED WILL BE CANCELLED AND RESCHEDULED FOR ANOTHER TIME.
[2019-06-24 15:10] VITALS: BMI 30.5
[2019-06-28] VITALS (13 sets, daily range): BP systolic 103–155; BP diastolic 65–96; PULSE 74–86; RESP 13–20; TEMP 36.4–43; O2SAT 91–100
--- NOTE | 2019-06-28 12:03 | P.PN_ITS ---
[facility] Anesthesia Checklist - Patient Identification Patient Identification: Arm Band, Verbal (Name & ) - Structural Data Admitted From: Home Planned Operative Procedure/s: knee scope Consent for Planned Operative Procedure(s) Verified: Yes Verified Documents: History and Physical - NPO Status Verified Time NPO: 00:00 - Chart Verification Results Verified: CBC, BMP - Additional verifications Patient : No Anesthesia Reactions: No Hx Blood Transfusions: No Blood Transfusion Reaction: No Cephalosporin Allergy: No Previous Colonoscopy: Yes - Cardiovascular Assessment Heart Sounds: S1 & S2 Pulse Strength: Baseline Pulse Rhythm: Regular Peripheral Edema: No - Airway Assessment C-Spine Mobility Assessed: Yes TMJ Mobility Assessed: Yes Dentition: Edentulous - Neurological Assessment Level of Consciousness: Awake, Alert, Appropriate Hx Seizures: No Numbness or tingling in extremities: No - Anesthesia Plan Anesthesia Risk discussed: Yes Anesthesia Plan: Verified ASA Class: III Anesthesia Type: MAC [facility] History I have reviewed the patient's past medical history: Yes 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: Reports:: Atrial Fibrillation, Carotid Stenosis, Hypertension Denies:: Cancer, Diabetes Mellitus Type 1, Diabetes Mellitus Type 2, Internal Pacemaker, Lung Disease, MRSA, Seizures *Have you ever received a pneumonia vaccine?: No *Have you received a flu vaccine this season?: Yes Other 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: Reports: Arthritis, Hypothyroidism, Other. Denies: Blood Transfusion Reaction Anesthesia experience/problems:: none Laterality Cases: Left: Other Other Surgeries: Yes: Cardiac Catheterization (found abnormal heart beat), Cholecystectomy, Colonoscopy, EGD, Hysterectomy-Total, Other (Gallbladder). No: Pacemaker Amputation: No Fractures: Yes (LEFT ARM AND LEG AND RIGHT ARM) - *Social History Smoking Status: Never smoker Alcohol Intake: never Alcohol Intake Frequency:: other Substance Use Type: denies use *Occupational Status:: retired Housing: house Household Members: spouse *Travel in the last 8 weeks: None Family Hx:: Cancer
--- NOTE | 2019-06-28 14:03 | HMH.ANESI ---
[facility] Anesthesia Record Part I Intake, IV Amount: 1,400 Estimated blood loss (mL): 5 Urine output (mL): 0 Blood Pressure: 125/75 SaO2: 94 Pulse Rate: 74 Respiratory Rate: 16 Temperature: 98.4 F Patient is:: Drowsy, Stable Stable to PACU at:: 14:00
--- NOTE | 2019-06-28 15:18 | PC.NURSE ---
clarified weight bearing status and dressing instructions with Dr Borrego prior to d/c
--- NOTE | 2019-06-28 15:43 | HMH.OPNOTE ---
Date of procedure: 06/28/19 Pre-op Diagnosis:: 1. Medial meniscal tear, right knee 2. Osteoarthritis, right knee Post-op Diagnosis:: 1. Degenerative tear of medial meniscus, right knee 2. Osteoarthritis, right knee 3. Pathological medial plica, right knee Procedure performed:: 1. Examination of right knee under anesthesia 2. Partial medial meniscectomy, right knee 3. Chondroplasty, right knee 4. Resection of medial plica, right knee Surgeon:: Miguel Borrego MD FIRE INVESTIGATOR:: Martín Spain Anesthesia: GETA Estimated blood loss (mL): 2 Clinical Note:: The patient is a 63-year-old female with RIGHT knee pain following an injury about 3 months ago which is unresponsive to conservative management and there is evidence of a medial meniscal tear and early arthritic changes on imaging. Clinically her symptoms are consistent with the above diagnosis. Resection of the torn medial meniscus, chondroplasty and debridement is indicated to relieve the pain and improve function of the knee. Please refer to my office note for full details. Operative findings:: Examination of the RIGHT knee under anesthesia, showed a stable knee joint. There is a small amount of knee joint effusion. Knee range of motion is from 0-120? of flexion. Operative findings showed diffuse grade 2-3 degenerative changes over the patellar articular surface and grade 3-4 changes over the trochlear groove and medial femoral condyle. Grade 2 changes were noted over the medial and lateral tibial plateau. The lateral femoral condyle is relatively well preserved. The medial meniscus had a degenerative tear involving the posterior horn. The lateral meniscus was noted to be intact. A lot of debris noted in the knee. The anterior cruciate ligament and posterior cruciate ligaments were intact. Moderate synovitis was noted. Operative note:: On the day of the procedure the patient and her were met in the preoperative area and positively identified. A physical examination was performed and documented. The limb was marked and initialed by me. I have again discussed the diagnosis, management options including both nonsurgical and surgical. I have discussed the proposed surgical procedure, risks and benefits and alternatives in detail. The complications discussed include but are not limited to infection, injury to nerves and blood vessels, injury to the ligaments and tendons, knee stiffness, arthrofibrosis, incomplete relief, incomplete functional recovery, DVT, PE, CRPS, complications related to anesthesia including heart attack, stroke and even . I have also discussed about the likely need for further surgery in future. I told her that there were no guarantees with surgery; she could be no better or even worse. We also discussed the postoperative recovery and rehabilitation that might be needed. I believe the patient to be well informed with regard to the proposed surgery. I told her that it would take few months for full recovery of the knee after surgery. She expressed a full understanding and wished to proceed with the planned surgery. Patient understood the risks, agreed to proceed with surgery, signed the consent form and no guarantees or assurances were given or implied. Patient was brought to the operating room and placed supine on the operating table. All the bony prominences were appropriately padded. A general anesthesia was administered by the jukebox coin collector. A well-padded tourniquet cuff was placed over the right upper thigh. Examination of the right knee under anesthesia was performed. A small amount of knee effusion was noted. Knee range of motion was 0-120 degrees of flexion. Knee joint is noted to be ligamentously stable. The right knee was then prepped and draped in the usual sterile fashion. A preprocedure timeout was performed as per protocol. Administration of prophylactic IV antibiotics was confirmed with the anesthetic team. The arthroscopic portals were marked on the skin. The limb was e
--- NOTE | 2019-06-28 18:57 | P.PN_ITS ---
[facility] Anesthesia Record Part II Discharge Time: 14:48 Destination: Surgical Day Care (OP Surgery) PACU nurse assessment reviewed?: Yes Patient Condition:: Good Anesthesia Complications:: None Swallowing reflex intact?: Yes Cyanosis?: No Blood Pressure: 103/65 Pulse Rate: 79 Temperature: 97.6 F Mental Status: Alert & Oriented Pain level:: 3 Nausea and/or vomitting:: None Intake, IV Amount: 0
== END 2019-06-28 15:22 | disposition home or self-care (01) ==
LOC: OR 09:22
PROVIDERS: PCP Emergency Medicine; Visit Provider Orthopaedic Surgery
PROC: (CPT 29870; principal; 2019-06-28 11:00)
DX: M17.11 Unilateral primary osteoarthritis, right knee (principal); E03.9 Hypothyroidism, unspecified; I48.91 Unspecified atrial fibrillation; I10 Essential (primary) hypertension; Z95.1 Presence of aortocoronary bypass graft; Z79.899 Other long term (current) drug therapy; S83.241A Other tear of medial meniscus, current injury, right knee, initial encounter; M67.51 Plica syndrome, right knee
CPT/HCPCS: 29881; 29879; 96374; J2405

== ENCOUNTER → 2020-06-29 13:54 | Outpatient (CLI) | payer OTHER, SELFPAY ==
[2020-06-29 14:06] LABS: Chloride 106 mmol/L (98-107); Sodium 139 mmol/L (136-145)
[2020-06-29 14:08] LABS: Alanine Aminotransferase 26 U/L (12-78); Alkaline Phosphatase 87 U/L (38-126); Aspartate Amino Transferase 31 U/L (14-36); Bilirubin,Total 0.5 mg/dl (0.2-1.3); Blood Urea Nitrogen 16 mg/dl (7-17); Estimated Glomerular Filt Rate 84 ml/min (>60); GFR (African American) 102 ML/MIN (>60)
[2020-06-29 14:09] LABS: Albumin Level 4.7 g/dl (3.5-5.0); Albumin/Globulin Ratio 1.9 (1.1-1.8); Carbon Dioxide 24 mmol/L (22.0-30.0); Chol/HDL Ratio 2.8 (1-3.5); Cholesterol 185 mg/dl (140-200); Globulin 2.5 g/dL (1.3-3.2); Glucose 108 mg/dl (74-100); HDL Cholesterol 67 mg/dl (40-60); Total Protein,Serum 7.2 g/dl (6.3-8.2); Triglycerides 98 mg/dl (30-150); VLDL Cholesterol 20 mg/dL (0-40)
[2020-06-29 14:26] LABS: Free T4 (Free Thyroxine) 0.89 ng/dl (0.78-2.19)
[2020-06-29 14:27] LABS: Basophils % 0.6 % (0.1-2.0); Eosinophils # 0.1 K/mm3 (0.0-0.4); Eosinophils % 1.1 % (0.1-12.0); Hematocrit 43.1 % (37.0-47.0); Hemoglobin 14.8 g/dL (12.2-16.2); Lymphocytes # 2.5 K/mm3 (0.7-4.5); Lymphocytes % 41.2 % (10-50); Mean Corpuscular HGB Conc 34.3 g/dL (31.8-35.4); Mean Corpuscular Hemoglobin 29.4 pg (27.0-31.2); Mean Corpuscular Volume 85.8 fl (81-99); Mean Platelet Volume 8.4 fl (7.4-10.4); Monocytes # 0.3 K/mm3 (0.1-1.0); Monocytes % 5.3 % (1.7-9.3); Neutrophils # 3.2 K/mm3 (1.8-7.8); Neutrophils % 51.8 % (37.0-80.0); Platelet Count 236 K/mm3 (142-424); Red Blood Count 5.02 M/mm3 (4.20-5.40); Red Cell Distribution Width 13.6 % (11.5-17.5); White Blood Count 6.1 K/mm3 (4.8-10.8)
[2020-06-29 14:28] LABS: Direct LDL Cholesterol 88.94 mg/dL (100-129)
[2020-06-29 14:35] LABS: 25-OH Vitamin D, Total 25.5 ng/mL (30-100)
== END ==
PROVIDERS: Visit Provider Physician Assistant
DX: E03.9 Hypothyroidism, unspecified (principal); I10 Essential (primary) hypertension; E55.9 Vitamin D deficiency, unspecified
CPT/HCPCS: 80053; 80061; 82306; 84439; 84443; 85025

== ENCOUNTER → 2020-07-05 09:07 | Outpatient (CLI) | payer OTHER, SELFPAY ==
--- NOTE | 2020-07-05 09:07 | CA_ITS ---
APPROVED REPORT Tube Closing Machine Operator: CT Laterality: Bilateral Indications: carotid artery stenosis Risk Factors Hypertension: Doppler Spectral Velocity Analysis ECA (R) 65.50/ cm/s ECA (L) 65.80/ cm/s dICA (R) 48.20/9.00 cm/s dICA (L) 68.10/19.50 cm/s Nikhil (R) 107.20/25.00 cm/s Nikhil (L) 80.80/23.90 cm/s pICA (R) 38.90/8.90 cm/s pICA (L) 83.10/26.90 cm/s dCCA (R) 71.80/13.50 cm/s dCCA (L) 69.60/12.70 cm/s pCCA (R) 73.30/12.70 cm/s pCCA (L) 118.20/12.70 cm/s Vert (R) 45.40/ cm/s Vert (L) 47.50/ cm/s ICA/CCA 1.50 ICA/CCA 1.20 Findings Duplex evaluation demonstrates stenosis of the right proximal internal carotid artery <20%. Duplex evaluation demonstrates stenosis of the left proximal internal carotid artery <20%. Duplex evaluation demonstrates antegrade flow of the bilateral Vertebral Arteries. Bilateral cysts of thyroid noted, suggests further testing. Conclusion Duplex evaluation demonstrates stenosis of the right proximal internal carotid artery <20%. Duplex evaluation demonstrates stenosis of the left proximal internal carotid artery <20%. Duplex evaluation demonstrates antegrade flow of the bilateral Vertebral Arteries. Bilateral thyroid nodules noted, suggests dedicated thyroid ultrasound. Electronically signed by : Jesús Barillas MD 07/05/2020 16:36:11
--- NOTE | 2020-07-05 09:57 | XR_ITS ---
PROCEDURE: XR DEXA AXIAL SKELETON CLINICAL HISTORY: Post menopausal COMPARISON: CR BONE3 BONE DENSITOMETRY(HIP:LT SPINE from 11/18/2016 FINDINGS: The right hip BMD is 0.735 with a T-score of -1.0. The left forearm BMD is 0.609 with a T-score of -1.4. The lumbar spine BMD is 0.814 with a T-score of -2.1. Previously the lowest density was in the spine with T-score of -1.7. IMPRESSION: This patient is considered osteopenic according to the World Health Organization criteria. Bone density is between 10 and 25 percent below young normal. Fracture risk is moderate. Treatment is advised. Based on these results a follow-up exam is recommended in 2 year. Dictated by: Jesús Barillas MD 07/06/2020 07:48 Jesús Barillas MD in [place] 07/06/2020 07:50
--- NOTE | 2020-07-05 09:57 | MM_ITS ---
PROCEDURE: MM DIG SCREENING MAMM BI W/CAD Digital Breast Tomosynthesis Included CLINICAL INDICATION: Breast cancer screening by mamm There is no personal or family history of breast cancer. COMPARISON: MG DMSB DIG MAMM-SCREEN ALEKSANDER from 11/09/2015 MG SCBI MM Dig screening mamm BI w/CAD from 06/02/2018 TECHNIQUE: Standard CC and MLO images and 3D Tomosynthesis was obtained. R2 CAD reviewed. FINDINGS: Breasts are composed primarily of fat with scattered fibroglandular densities seen throughout each breast. There is mild arterial calcification in each breast as noted previously. No suspicious lesion in either breast and no suspicious microcalcifications. IMPRESSION: Fibrofatty parenchyma with no suspicious lesions seen BI-RAD Category: 2 Benign Finding(s) FOLLOW-UP: 1YR 1 Year Follow-up (A letter has been sent to the patient regarding results of the study.) Dictated by: Dr. Ham Carmona MD 07/07/2020 09:12 Dr. Ham Carmona MD in [place] 07/07/2020 09:12
== END ==
PROVIDERS: PCP Physician Assistant; Visit Provider Physician Assistant
DX: I65.22 Occlusion and stenosis of left carotid artery (principal); Z78.0 Asymptomatic menopausal state; Z12.31 Encounter for screening mammogram for malignant neoplasm of breast
CPT/HCPCS: 77063; 77067; 77080; 93880

== ENCOUNTER → 2020-07-20 09:10 | Outpatient (CLI) | payer OTHER, SELFPAY ==
--- NOTE | 2020-07-20 09:10 | US_ITS ---
PROCEDURE: US THYROID CLINICAL INDICATION: Cyst on thyroid COMPARISON: No exams were available for comparison FINDINGS: Right lobe: 3.9 x 1.4 x 2.2 cm. 4 mm I so to hyperechoic nodule upper pole. 6 mm I so to hyperechoic nodule mid polar region Left lobe: . 4.4 x 1.4 x 2.1 cm. 19 x 10 x 16 mm solid-appearing hyperechoic nodule well-circumscribed mid polar region wider than tall with no obvious internal calcifications with smooth margins TR level 3 Isthmus: 5 mm in thickness. Additional findings: IMPRESSION: Bilateral TR level 3 nodules largest in the lower pole on the left. These are less than 2.5 cm. 12 month follow-up suggested. Dictated by: Jesús Barillas MD 07/20/2020 13:45 Jesús Barillas MD in [place] 07/20/2020 13:45
== END ==
PROVIDERS: PCP Physician Assistant; Visit Provider Physician Assistant
DX: E04.1 Nontoxic single thyroid nodule (principal)
CPT/HCPCS: 76536

== ENCOUNTER → 2020-10-05 17:41 | Outpatient (CLI) | payer OTHER, SELFPAY | PROVIDERS: Visit Provider Physician Assistant | DX: R69 Illness, unspecified (principal); U07.1 COVID-19 | CPT/HCPCS: U0003 ==

== ENCOUNTER → 2021-03-22 11:25 | Outpatient (CLI) | payer MEDICARE, OTHER, SELFPAY ==
--- NOTE | 2021-03-22 11:35 | XR_ITS ---
FINAL REPORT CLINICAL HISTORY: right heel pain, plantar surface pain from arch to heel , no known injury FINDINGS: 3 weight bearing views of the right foot were obtained. There is no acute fracture or dislocation. There are mild degenerative changes. There are small calcaneal spurs. The soft tissues are unremarkable. IMPRESSION: Mild degenerative change. Reviewed, Interpreted and Dictated by Car Alcazar III, MD Transcribed by Rei Young Authenticated by Car Alcazar III, MD on 03/22/2021 12:36:[address] [facility]
[2021-03-22 13:00] LABS: Basophils # 0.1 K/mm3 (0-0.2); Basophils % 1.3 % (0.1-2.0); Eosinophils % 0.1 % (0.1-12.0); Hematocrit 44.1 % (37.0-47.0); Lymphocytes # 2.2 K/mm3 (0.7-4.5); Lymphocytes % 35.3 % (10-50); Mean Corpuscular HGB Conc 34.1 g/dL (31.8-35.4); Mean Corpuscular Hemoglobin 30.4 pg (27.0-31.2); Mean Corpuscular Volume 89.2 fl (81-99); Mean Platelet Volume 8.1 fl (7.4-10.4); Monocytes # 0.3 K/mm3 (0.1-1.0); Monocytes % 4.6 % (1.7-9.3); Neutrophils # 3.7 K/mm3 (1.8-7.8); Neutrophils % 58.7 % (37.0-80.0); Platelet Count 240 K/mm3 (142-424); Red Blood Count 4.94 M/mm3 (4.20-5.40); Red Cell Distribution Width 13.7 % (11.5-17.5); White Blood Count 6.3 K/mm3 (4.8-10.8)
[2021-03-22 13:35] LABS: Alanine Aminotransferase 25 U/L (12-78); Albumin Level 4.9 g/dl (3.5-5.0); Albumin/Globulin Ratio 2.1 (1.1-1.8); Alkaline Phosphatase 65 U/L (38-126); Anion Gap 11.9 mEq/L (5-15); Aspartate Amino Transferase 31 U/L (14-36); Bilirubin,Total 0.6 mg/dl (0.2-1.3); Blood Urea Nitrogen 13 mg/dl (7-17); Calcium 9.7 mg/dl (8.4-10.2); Carbon Dioxide 27 mmol/L (22.0-30.0); Chloride 106 mmol/L (98-107); Estimated Glomerular Filt Rate 72 ml/min (>60); GFR (African American) 87 ML/MIN (>60); Globulin 2.3 g/dL (1.3-3.2); Glucose 103 mg/dl (74-100); Potassium 4.9 mmoL/L (3.5-5.1); Sodium 140 mmol/L (136-145); Total Protein,Serum 7.2 g/dl (6.3-8.2); Uric Acid 5.5 mg/dl (2.5-6.2)
[2021-03-22 13:37] LABS: Erythrocyte Sedimentation Rate 14 mm/hr (0-30)
[2021-03-22 13:40] LABS: C-Reactive Protein 3.5 mg/L (0-4)
== END ==
PROVIDERS: PCP Physician Assistant; Visit Provider Physician Assistant
DX: M79.671 Pain in right foot (principal)
CPT/HCPCS: 36415; 73630; 80053; 84550; 85025; 85651; 86140

== ENCOUNTER 2021-04-26 11:22 | Outpatient (RCR) | payer MEDICARE, OTHER, SELFPAY | END 2021-04-26 12:20 | disposition home or self-care (01) | LOC: PT 11:22 | PROVIDERS: Visit Provider Physician Assistant | DX: M79.671 Pain in right foot (principal) | CPT/HCPCS: 97760 ==

== ENCOUNTER → 2021-06-11 14:10 | Outpatient (CLI) | payer MEDICARE, OTHER, SELFPAY ==
--- NOTE | 2021-06-11 14:11 | MR_ITS ---
FINAL REPORT CLINICAL HISTORY: right heel pain. RT FOOT AND PLANTAR HEEL PAIN [id number]. NO INJURY OR TRAUMA. FINDINGS: Multiplanar MR imaging of the right foot was performed without contrast. Motion on many of the images decreases exam sensitivity. The bony structures are intact without evidence of fracture, bone bruise or marrow edema. There are mild degenerative changes. There are calcaneal spurs. There are calcifications inferior to the medial malleolus. The flexor and extensor tendons are intact. No ligamentous injury is identified. The musculature is intact. The plantar aponeurosis is intact. No soft tissue mass or cyst is identified. IMPRESSION: Mild degenerative change with calcaneal spurs. Calcifications inferior to the medial malleolus. Reviewed, Interpreted and Dictated by Car Alcazar III, MD Transcribed by Rei Young Authenticated by Car Alcazar III, MD on 06/11/2021 05:01:01 PM [facility]
== END ==
PROVIDERS: PCP Physician Assistant; Visit Provider Physician Assistant
DX: M79.671 Pain in right foot (principal)
CPT/HCPCS: 73718

== ENCOUNTER → 2021-06-29 10:04 | Outpatient (CLI) | payer MEDICARE, OTHER, SELFPAY ==
[2021-06-29 11:09] LABS: Blood Urea Nitrogen 15 mg/dl (7-17); Estimated Glomerular Filt Rate 72 ml/min (>60); GFR (African American) 87 ML/MIN (>60)
== END ==
PROVIDERS: Visit Provider Otolaryngology
DX: Z01.812 Encounter for preprocedural laboratory examination (principal)
CPT/HCPCS: 36415; 82565; 84520

== ENCOUNTER → 2021-07-04 12:35 | Outpatient (CLI) | payer MEDICARE, OTHER, SELFPAY ==
--- NOTE | 2021-07-04 12:35 | CT_ITS ---
FINAL REPORT TECHNIQUE: Thin section axial CT images with coronal and sagittal reformats were performed after the administration of IV contrast. This study was performed with techniques to keep radiation doses as low as reasonably achievable (ALARA). Individualized dose reduction techniques using automated exposure control or adjustment of mA and/or kV according to the patient''s size were employed. CLINICAL HISTORY: right sided neck/ear pain FINDINGS: The nasopharynx, oropharynx, epiglottis, and larynx are unremarkable. There is a small hypervascular nodule in the right thyroid that is nonspecific. The right parotid gland is either very atrophic or surgically absent. The salivary glands are otherwise unremarkable. There is no cervical lymphadenopathy. There is no mass or fluid collection. There is no acute osseous abnormality. IMPRESSION: Absent right parotid gland which could be surgical or related to severe atrophy. No lymphadenopathy or fluid collection. Reviewed, Interpreted and Dictated by Sinai Hinojosa MD Transcribed by Rei Young Authenticated by Sinai Hinojosa MD on 07/04/2021 02:47:21 PM [facility]
== END ==
PROVIDERS: PCP Physician Assistant; Visit Provider Otolaryngology
DX: H60.61 Unspecified chronic otitis externa, right ear (principal)
CPT/HCPCS: 70491; Q9967

== ENCOUNTER → 2021-10-25 14:00 | Outpatient (CLI) | payer MEDICARE, MEDICAID, SELFPAY ==
[2021-10-25 18:07] LABS: Adenovirus,PCR Not Detected (NotDetected); Bordetella Pertussis Not Detected (NotDetected); Chlamydophila Pneumoniae, PCR Not Detected (NotDetected); Coronavirus 19, PCR Not Detected (NotDetected); Coronavirus 229E Not Detected (NotDetected); Coronavirus NL63 Not Detected (NotDetected); Coronavirus OC43 Not Detected (NotDetected); Coronovirus HKU1,PCR Not Detected (NotDetected); Human Metapneumovirus Not Detected (NotDetected); Influenza A, PCR Not Detected (NotDetected); Influenza AH1, 2009 Not Detected (NotDetected); Influenza AH1, PCR Not Detected (NotDetected); Influenza AH3,PCR Not Detected (NotDetected); Influenza B, PCR Not Detected (NotDetected); Mycoplasma Pneumoniae, PCR Not Detected (NotDetected); Parainfluenza 1, PCR Not Detected (NotDetected); Parainfluenza 2, PCR Not Detected (NotDetected); Parainfluenza 3, PCR Not Detected (NotDetected); Parainfluenza 4, PCR Not Detected (NotDetected); Respiratory Syncytial Virus Not Detected (NotDetected); Rhinovirus/Enterovirus Not Detected (NotDetected)
== END ==
PROVIDERS: PCP Physician Assistant; Visit Provider Physician Assistant
DX: Z20.822 Contact with and (suspected) exposure to COVID-19; J01.90 Acute sinusitis, unspecified
CPT/HCPCS: 87070; 87581; 87632; 87798; C9803; U0003; U0005

== ENCOUNTER → 2022-02-19 15:16 | Outpatient (CLI) | payer MEDICARE, MEDICAID, SELFPAY ==
--- NOTE | 2022-02-19 15:22 | XR_ITS ---
FINAL REPORT CLINICAL HISTORY: Recent fall, sx on left hip 2012 FINDINGS: RIGHT HIP Two views of the right hip with an AP pelvis demonstrate no acute fracture or dislocation. There are postoperative changes in the left femur. There are mild degenerative changes in the right hip. The visualized bony structures are well aligned. No soft tissue abnormality is seen. IMPRESSION: No acute bony abnormality. If symptoms persist or are severe consider CT for further evaluation. Reviewed, Interpreted and Dictated by Car Alcazar III, MD Transcribed by Joan William Authenticated and [facility]
== END ==
LOC: RAD 15:20
PROVIDERS: PCP Physician Assistant; Visit Provider Physician Assistant
DX: Z91.81 History of falling (principal)
CPT/HCPCS: 73502

== ENCOUNTER → 2022-04-18 15:26 | Outpatient (CLI) | payer MEDICARE, MEDICAID, SELFPAY | PROVIDERS: PCP Physician Assistant; Visit Provider Physician Assistant | DX: M54.9 Dorsalgia, unspecified (principal) | CPT/HCPCS: 87086 ==

== ENCOUNTER 2022-04-23 16:11 | Emergency (ER) | payer MEDICARE, MEDICAID, SELFPAY ==
[2022-04-23 16:18] VITALS: BP 158/111; PULSE 70; RESP 20; O2SAT 98
[2022-04-23 16:21] VITALS: BP 158/11; PULSE 69; RESP 18; TEMP 36.4; O2SAT 100; BMI 30.1
--- NOTE | 2022-04-23 17:08 | PC.NURSE ---
DAVE LEOS at for pt yonial
--- NOTE | 2022-04-23 17:20 | HMH.EDGENADL ---
Discharge Plan Disposition Patient Disposition: Home, Self-Care Condition: Good Prescriptions Prescriptions: New diazepam [Valium] 2 mg tablet 2 mg PO TID PRN (Reason: back pain) Qty: 3 0RF lidocaine [Lidoderm] 5 % adhesive patch,medicated 1 patch topical DAILY Qty: 15 0RF Rx Instructions: leave on most painful area for up to 12 hrs methocarbamol 750 mg tablet 750 mg PO TID 5 Days Qty: 15 0RF No Action fluticasone propionate [Flonase Allergy Relief] 50 mcg/actuation spray,suspension 1 spray INTRANASAL QDAY 30 Days Qty: 9.9 0RF Rx Instructions: administer into each nostril hydroxyzine pamoate [Vistaril] 25 mg capsule 25 mg PO Q8H PRN (Reason: anxiety) Qty: 30 2RF clonidine HCl 0.3 mg tablet See Rx Instructions .ROUTE .COMPLEX Qty: 270 3RF Dose Instruction: TAKE ONE TABLET BY MOUTH EVERY 8 HOURS FOR BLOOD PRESSURE Rx Instructions: TAKE ONE TABLET BY MOUTH EVERY 8 HOURS FOR BLOOD PRESSURE losartan-hydrochlorothiazide 100-25 mg tablet 1 tab PO DAILY alendronate 70 mg tablet See Rx Instructions .ROUTE .COMPLEX Qty: 14 3RF Dose Instruction: TAKE ONE TABLET BY MOUTH ONCE a WEEK Rx Instructions: TAKE ONE TABLET BY MOUTH ONCE a WEEK duloxetine 30 mg capsule,delayed release(DR/EC) See Rx Instructions .ROUTE .COMPLEX Qty: 90 4RF Dose Instruction: TAKE ONE CAPSULE BY MOUTH EVERY DAY FOR mood Rx Instructions: TAKE ONE CAPSULE BY MOUTH EVERY DAY FOR mood pantoprazole 40 mg tablet,delayed release (DR/EC) See Rx Instructions .ROUTE .COMPLEX Qty: 90 3RF Dose Instruction: TAKE ONE TABLET BY MOUTH EVERY DAY FOR gerd Rx Instructions: TAKE ONE TABLET BY MOUTH EVERY DAY FOR gerd cholecalciferol (vitamin D3) 25 mcg (1,000 unit) capsule 25 mcg PO DAILY Qty: 30 5RF calcium carbonate-vitamin D3 600 mg-10 mcg (400 unit) tablet See Rx Instructions .ROUTE .COMPLEX Qty: 30 5RF Dose Instruction: TAKE ONE TABLET BY MOUTH EVERY DAY Rx Instructions: TAKE ONE TABLET BY MOUTH EVERY DAY ergocalciferol (vitamin D2) 1,250 mcg (50,000 unit) capsule 50,000 unit PO QWEEK Qty: 14 3RF nebivolol 10 mg tablet See Rx Instructions .ROUTE .COMPLEX Qty: 30 3RF Dose Instruction: TAKE ONE TABLET BY MOUTH EVERY DAY Rx Instructions: TAKE ONE TABLET BY MOUTH EVERY DAY metoprolol succinate 25 mg tablet extended release 24 hr See Rx Instructions .ROUTE .COMPLEX Qty: 30 5RF Dose Instruction: TAKE ONE TABLET BY MOUTH EVERY DAY Rx Instructions: TAKE ONE TABLET BY MOUTH EVERY DAY levothyroxine 150 mcg tablet See Rx Instructions .ROUTE .COMPLEX Qty: 30 5RF Dose Instruction: TAKE ONE TABLET BY MOUTH EVERY DAY Rx Instructions: TAKE ONE TABLET BY MOUTH EVERY DAY hydrocodone-acetaminophen 5-325 mg tablet 1 tab PO Q4-6H PRN (Reason: pain) Qty: 30 0RF Referrals Follow up/Referrals: Tiffanie Barry PA [Primary Care Provider] - See instructions Clinical Impressions Clinical Impression: Back muscle spasm Instructions Patient Instructions: DI for Low Back Pain Discharge ED Provider: David Monge General Adult HPI General Chief complaint: Back Pain/Injury Stated complaint: back pain Time Seen by Provider: 04/23/22 16:19 Mode of Arrival: Wheelchair Source of Information: Patient and Spouse Limitations: Physical Limitations Description of Symptoms (Recalled from ER Triage Doc. by RN): Pt c/o severe low back pain, sciatica , in right side radiating to RLE; was eval'd [facility] 04/18 w IM/Rx meds and no better, denies trauma History of Present Illness HPI narrative: This is a 66-year-old female with no relevant medical history presenting with back pain and sciatic pain. Patient states that 1 week prior to arrival, she began having severe spasming back pain that radiates down the back of her right leg. She saw her family care provider where she was given a steroid
--- NOTE | 2022-04-23 17:24 | CT_ITS ---
PROCEDURE INFORMATION: Exam: CT Lumbar Spine Without Contrast Exam date and time: 04/23/2022 5:33 PM Age: 66 years old Clinical indication: Low back pain; Additional info: New radiulopathy and intractble sciatica TECHNIQUE: Imaging protocol: Computed tomography of the lumbar spine without contrast. Radiation optimization: All CT scans at this facility use at least one of these dose optimization techniques: automated exposure control; mA and/or kV adjustment per patient size (includes targeted exams where dose is matched to clinical indication); or iterative reconstruction. REPORTING DATA: Count of CT and Cardiac NM exams in prior 12 months: This patient has received [address] and 0 known cardiac nuclear medicine studies in the 12 months prior to the current study. COMPARISON: FINDINGS: Bones/joints: No acute fracture. Very mild degenerative grade 1 anterolisthesis L4-L5 with prominent facet arthropathy. No high-grade listhesis.There are no lytic skeletal lesions seen. Bones appear diffusely demineralized suggesting osteopenia. There is mild lumbar levo scoliosis. L1-L2: No significant disc bulge or herniation. No significant spinal canal stenosis. No significant neural foraminal narrowing. L2-L3: Mild degenerative spondylosis and posterior disc narrowing. Broad posterolateral disc bulging. No significant focal herniation visible. The central spinal canal is mildly narrowed and neural foramina are very mildly narrowed. Mild facet arthropathy. L3-L4: Very mild degenerative spondylosis. Mild lateral disc bulges. Very mild spinal canal stenosis. Neural foramina are very mildly narrowed. L4-L5: Bilateral facet arthropathy, ligamentum flavum thickening, with very mild grade 1 anterolisthesis in the neutral supine position. Mild degenerative spondylosis. Broad posterolateral disc bulging greater toward the left. Moderate bilateral L4 foraminal narrowing greater toward the left. At least moderate central spinal canal narrowing; the thecal sac has a small triangular configuration with likely crowding and impingement on cauda equina nerve roots on series 3, image 76. L5-S1: Minimal intraforaminal disc bulging. No significant spinal canal stenosis. Mild neural foraminal narrowing. Soft tissues: No acute findings in the paraspinous soft tissues. IMPRESSION: 1. No acute findings. 2. Chronic lumbar facet arthropathy L4-L5 with very mild grade 1 degenerative anterolisthesis, ligamentum flavum hypertrophy, prominent posterolateral disc bulging greater toward the left; there is at least moderate central spinal canal stenosis with likely impingement on cauda equina nerve roots, and there are moderate L4 foraminal stenoses. 3. Milder degenerative changes at the other lumbar levels as detailed above. Mild spinal stenosis L2-L3. no high-grade spinal or foraminal stenoses. 4. Lumbar levo scoliosis.
--- NOTE | 2022-04-23 17:29 | PC.NURSE ---
patient to radiology via wheelchair
[2022-04-23 19:19] VITALS: BP 132/81; PULSE 66; RESP 18; TEMP 36.8; O2SAT 96
== END 2022-04-23 19:29 | disposition home or self-care (01) ==
PROVIDERS: Emergency Provider Emergency Medicine; PCP Physician Assistant
DX: M62.830 Muscle spasm of back (principal); M54.41 Lumbago with sciatica, right side; G89.29 Other chronic pain; M43.06 Spondylolysis, lumbar region; E55.9 Vitamin D deficiency, unspecified
CPT/HCPCS: 72131; 99284

== ENCOUNTER → 2022-05-10 13:52 | Outpatient (CLI) | payer MEDICARE, MEDICAID, SELFPAY ==
--- NOTE | 2022-05-10 13:53 | MR_ITS ---
FINAL REPORT CLINICAL HISTORY: abnormal lumbar CT 3 WEEKS AGO UNABLE TO WALK MUCH BETTER NOW COMPARISON: August 2018 FINDINGS: Multiplanar MR imaging of the lumbar spine was performed without contrast. On the sagittal T2-weighted images, there is abnormal decreased signal throughout the lumbar discs. The vertebrae are of normal height. The vertebral alignment is normal. L1-2: There is no significant canal stenosis or neural foraminal narrowing. L2-3: There is a mild diffuse disc bulge with mild bilateral neural foraminal narrowing. L3-4: There is no significant canal stenosis or neural foraminal narrowing. L4-5: There is a mild diffuse disc bulge. There is mild left neural foraminal narrowing slightly more evident than on the prior exam. L5-S1: There is no significant canal stenosis or neural foraminal narrowing. IMPRESSION: Disc bulges and neural foraminal narrowing at L2-L3 and L4-L5. Reviewed, Interpreted and Dictated by Wilbur Cespedes MD Transcribed by Rei Young Authenticated and . [facility]
== END ==
PROVIDERS: PCP Physician Assistant; Visit Provider Physician Assistant
DX: M54.41 Lumbago with sciatica, right side (principal); R93.7 Abnormal findings on diagnostic imaging of other parts of musculoskeletal system
CPT/HCPCS: 72148; 76376

== ENCOUNTER → 2022-05-20 09:49 | Outpatient (POV) | payer MEDICARE, MEDICAID, SELFPAY ==
--- NOTE | 2022-05-20 09:54 | EXP.PAIN.OV ---
HPI Data of Consult Patient: new to practice Consult date: 05/20/22 Requesting Physician: Nany Adams APRN Consult Narrative Reason for consult: Low back pain, right leg pain History of present illness: Ms. Reeder is a 66 year old female who presents today as a new patient. She is a referral from Tiffanie Barry's office. Today she rates her pain a 7 out of 10. Patient states her pain is all around her low back along the right side with some symptoms going into her right leg. Patient does state this is a aching, sharp sensation that is worse with increased activity or certain positioning. Patient does state that she is experienced low back pain for years that it was unrelated to any specific trauma or injury. She does state over the last month or so it has progressively worsen. Patient states that she was doing some housecleaning and mopping when her pain seemed to worsen along her low back. Patient did go to the urgent treatment center and was given steroid shots along with oral medications including Valium and Robaxin. She does state that the Robaxin did help significantly however she was only given a 5-day dose of this medication. She does state that she has had injections in the past including from our office. She states she was a prior patient years ago. She states that the injection she was given had significant relief and she did not have to come back. Patient has tried [id number] Tylenol and ibuprofen along with heat and ice however she states she has not had any additional improvement. Patient does use medicated patches for temporary relief. Patient has had physical therapy in the past however she states it worsened her pain symptoms. Patient was also given [place] 5 mg from her primary care doctor however she no longer has any of this medication. Her Deejay is [phone]. Its been reviewed and appropriate. CC: Nany Adams APRN [facility] Disclaimer: The information contained in this section may have been updated after the patient was seen, as this information can be updated by other users. 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-she has neuralgia discomfort on her previous incision for parotidectomy on the right Otitis media Right-sided low back pain with right-sided sciatica Vitamin D deficiency (~06/26/17) Social History (Updated 05/20/22 @ 09:59 by Sana Luna RN) Smoking Status: Never smoker second hand exposure: No alcohol intake: never counseling provided: none substance use type: denies use current occupational status: retired Travel in the last 8 weeks: None household members: spouse housing: house 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 current occupational exposures/hazards: No caffeine: No Review of Systems Review of Systems Review of systems:: pertinent systems reviewed and negative unless documented below Review of systems (narrative): Review of Systems: General: No recent weight changes, no fever, no sleep disturbances Respiratory: No cough, no shortness of air, no recurring pulmonary infections Cardiovascular/peripheral vascular: No chest pain, no palpitations, no edema, no shortness of breath Gastrointestinal: No new onset incontinence, normal bowel movements reported Genitourinary: No new onset incontinence Musculoskeletal: Low back pain Psychiatric: [Normal mood/affect] Neurological: [Denies weakness in extremities], [denies balance issues] Meds Home Medications and Allergies Home Medications Medication Instructions Recorded Confirmed Type hydroxyzine pamoate 25 mg capsule 25 mg PO Q8H PRN anxiety #30 caps 06/29/20 05/20/22 Rx (Vistaril) ergocalciferol (vitamin D2) 1,250 50,000 unit PO QWEEK Supplement 09/18/21 05/20/22 Rx mcg (50,000 unit) capsule #14 caps hydrocodone 5
[2022-05-20 10:38] VITALS: BP 189/90; PULSE 74; RESP 18; O2SAT 97; BMI 29.9
== END | disposition home or self-care (01) ==
PROVIDERS: Visit Provider Nurse Practitioner Family
DX: M51.16 Intervertebral disc disorders with radiculopathy, lumbar region (principal); M47.26 Other spondylosis with radiculopathy, lumbar region; M46.1 Sacroiliitis, not elsewhere classified; M24.28 Disorder of ligament, vertebrae; M79.10 Myalgia, unspecified site; G89.29 Other chronic pain; M79.18 Myalgia, other site
CPT/HCPCS: 99202; G0463

== ENCOUNTER 2022-05-28 07:59 | Day surgery (SDC) | payer MEDICARE, MEDICAID, SELFPAY ==
[2022-05-28 08:16] VITALS: BP 156/87; PULSE 66; RESP 18; TEMP 36.3; O2SAT 98; BMI 31.1
[2022-05-28 08:47] VITALS: BP 169/85; PULSE 65; RESP 18; O2SAT 98
[2022-05-28 08:48] VITALS: BP 169/85; PULSE 65; RESP 18; O2SAT 98
[2022-05-28 08:52] VITALS: BP 118/73; PULSE 84; RESP 18; O2SAT 97
--- NOTE | 2022-05-28 08:54 | EXP.PAIN.PRO ---
Procedure Date: 05/28/22 Time: 08:35 Anesthesiologist:: Kaden Garcia CRNA Complications:: None Pre-procedure Diagnosis:: Myofascial pain right lumbar paraspinous muscle. Post-procedure Diagnosis:: Same. Indications for Procedure:: Very pleasant 66-year-old female that has extreme point tenderness over the right lumbar paraspinous muscle area. She has difficulty with flexion and extension. She describes the pain as constant, dull, aching. Procedure Details:: Details of the procedure explained to the patient. The patient taken to procedure room placed in sitting position the area over the right lumbar paraspinous muscle was cleansed using chlorhexidine as a cleansing solution. Using a 25-gauge needle 3 cc of a solution containing 0.25% Marcaine +1% lidocaine and 40 mg Depo-Medrol was injected in 3 separate areas along the right lumbar paraspinous muscle. Patient tolerated procedure without difficulty. No complications Plan and Disposition:: Patient was discharged without incident.
== END 2022-05-28 08:52 | disposition home or self-care (01) ==
PROVIDERS: PCP Physician Assistant; Visit Provider Nurse Anesthetist, Certified Registered
DX: M79.10 Myalgia, unspecified site (principal)
CPT/HCPCS: 20552; J1040

== ENCOUNTER → 2022-06-13 08:58 | Outpatient (POV) | payer MEDICARE, MEDICAID, SELFPAY ==
[2022-06-13 09:34] VITALS: BP 179/84; PULSE 83; RESP 18; O2SAT 98; BMI 30.5
--- NOTE | 2022-06-13 11:04 | EXP.PAIN.SOA ---
[facility] Pain Management SOAP Note Subjective:: Patient is a pleasant 66-year-old female who presents today for follow-up of right lumbar paraspinous muscle trigger point injections on 05/28/2022. We are currently treating the patient for degenerative disc disease of lumbar spine with lumbar radiculopathy symptoms, lumbar spondylosis, lumbar facet arthropathy, ligamentum flavum hypertrophy, lumbar spinal stenosis, myofascial pain. Today she rates her pain a 6 out of 10. She states that she has at least had 50% improvement there at her back along the right side. She states this is continuing to help however she does start to feel like it is wearing off some. She states primarily her pain is at her low back with radiating symptoms into her right hip and right leg. Patient does describe this as an aching, throbbing sensation that is worse with increased activity. Patient states it does make it difficult to perform activities of daily living such as cooking and cleaning. patient recently was prescribed methocarbamol 500 mg twice a day and she states this did help provide some relief. She is requesting a refill at today's visit. Her Deejay is [phone]. Its been reviewed and appropriate. Review of Systems: General: No recent weight changes, no fever, no sleep disturbances Respiratory: No cough, no shortness of air, no recurring pulmonary infections Cardiovascular/peripheral vascular: No chest pain, no palpitations, no edema, no shortness of breath Gastrointestinal: No new onset incontinence, normal bowel movements reported Genitourinary: No new onset incontinence Musculoskeletal: Low back pain, right leg pain Psychiatric: [Normal mood/affect] Neurological: [Denies weakness in extremities], [denies balance issues] Objective:: Physical Exam: General: Alert and oriented x3, no acute distress, pleasant and cooperative Lungs: Respirations even and unlabored, symmetrical chest expansion Eyes: PERRL Musculoskeletal: Flexion and extension of lumbar [spine] somewhat guarded secondary to pain, [antalgic gait noted] Neurological: Speech clear, no gross sensory deficit CLINICAL HISTORY: abnormal lumbar CT? 3 WEEKS AGO UNABLE TO WALK MUCH BETTER NOW COMPARISON: August 2018 FINDINGS: Multiplanar MR imaging of the lumbar spine was performed without contrast. ? On the sagittal T2-weighted images, there is abnormal decreased signal throughout the lumbar discs. The vertebrae are of normal height. The vertebral alignment is normal.? ? L1-2:? ? There is no significant canal stenosis or neural foraminal narrowing.? L2-3: ? ? There is a mild diffuse disc bulge with mild bilateral neural foraminal narrowing. L3-4:? ? There is no significant canal stenosis or neural foraminal narrowing.? L4-5: ? ? There is a mild diffuse disc bulge.? There is mild left neural foraminal narrowing slightly more evident than on the prior exam.? L5-S1:? ? There is no significant canal stenosis or neural foraminal narrowing. IMPRESSION: Disc bulges and neural foraminal narrowing at L2-L3 and L4-L5. Reviewed, Interpreted and Dictated by Wilbur Cespedes MD Transcribed by Rei Young Authenticated and [facility] Assessment:: Degenerative disc disease of lumbar spine with lumbar radiculopathy symptoms, lumbar spondylosis, lumbar facet arthropathy, ligamentum flavum hypertrophy, lumbar spinal stenosis, myofascial pain Plan:: Patient is experiencing significant pain in her low back with radiating symptoms into her right leg. Patient did have limited range of motion of her lumbar spine during today's visit. I have discussed with the patient that she may benefit from a right transforaminal epidural steroid injection. Risk and benefits were discussed with the patient and she would like to proceed forward with this plan of care. Patient lumbar imaging showed multilevel degenerative disc disease with lumbar facet arthropathy, liga
== END | disposition home or self-care (01) ==
PROVIDERS: PCP Physician Assistant; Visit Provider Nurse Practitioner Family
DX: M51.16 Intervertebral disc disorders with radiculopathy, lumbar region (principal); M47.26 Other spondylosis with radiculopathy, lumbar region; M48.061 Spinal stenosis, lumbar region without neurogenic claudication; M79.10 Myalgia, unspecified site
CPT/HCPCS: 99212; G0463

== ENCOUNTER 2022-06-25 07:49 | Day surgery (SDC) | payer MEDICARE, MEDICAID, SELFPAY ==
[2022-06-25 08:17] VITALS: BP 163/79; PULSE 66; RESP 18; TEMP 36.3; O2SAT 99; BMI 30.5
[2022-06-25 08:47] VITALS: BP 196/90; PULSE 73; RESP 18; O2SAT 97
[2022-06-25 08:48] VITALS: BP 196/90; PULSE 73; RESP 18; O2SAT 97
[2022-06-25 08:50] VITALS: BP 153/71; PULSE 65; RESP 18; O2SAT 99
--- NOTE | 2022-06-25 08:51 | EXP.PAIN.PRO ---
Procedure Date: 06/25/22 Time: 08:45 Anesthesiologist:: Kaden Garcia CRNA Complications:: None Pre-procedure Diagnosis:: Degenerative disc lumbar spine multilevels. Lumbar radiculopathy. Disc bulge lumbar spine L4-5, L5-S1. Lumbar spondylosis Post-procedure Diagnosis:: Same. Indications for Procedure:: Very pleasant 66-year-old female comes our clinic today for right L4-5, L5-S1 transforaminal epidural steroid injection. She has had this in the past with significant improvement terms of her overall low lumbar right, right hip and leg radicular symptoms. Procedure Details:: Details of the procedure were explained to the patient. The patient was taken the procedure room placed in the prone position. The area of the lumbar spine was cleansed using chlorhexidine as a cleansing solution. At this time using fluoroscopy guidance markers were placed on the right lateral border of the L4 and L5 vertebral body. The skin and subcutaneous tissue was anesthetized using 1% lidocaine and 25-gauge needle. At this time using a 22-gauge 3-1/2 inch spinal needle the right upper one third of the L4-5 foramen was accessed. The same was done at the right L5-S1 foramen. Needle positions were confirmed and a lateral view using fluoroscopy and contrast dye. At this time 1 cc of 1% lidocaine +20 mg of Depo-Medrol was injected at each level after negative aspiration. [place] were removed. Band-Aid applied. Patient tolerated the procedure without difficulty. There are no complications. Plan and Disposition:: Patient was discharged without incident.
== END 2022-06-25 08:50 | disposition home or self-care (01) ==
PROVIDERS: PCP Physician Assistant; Visit Provider Nurse Anesthetist, Certified Registered
DX: M51.16 Intervertebral disc disorders with radiculopathy, lumbar region (principal); M47.26 Other spondylosis with radiculopathy, lumbar region
CPT/HCPCS: 64483; 64484; J1030

== ENCOUNTER → 2022-07-17 08:37 | Outpatient (POV) | payer MEDICARE, MEDICAID, SELFPAY ==
[2022-07-17 08:56] VITALS: BP 171/100; PULSE 82; RESP 19; O2SAT 96; BMI 30.5
--- NOTE | 2022-07-17 09:15 | EXP.PAIN.SOA ---
[facility] Pain Management SOAP Note Subjective:: Patient is a pleasant 66-year-old female who presents today for follow-up of right transforaminal epidural steroid injection of L4-L5 and L5-S1 on 06/25/2022. We are currently treating the patient for degenerative disc disease of the lumbar spine with lumbar radiculopathy symptoms, lumbar spondylosis, lumbar facet arthropathy, ligamentum flavum hypertrophy, lumbar spinal stenosis, myofascial pain. Today she states that she had at least 70% improvement following this injection lasting almost 1 month. Today she rates her pain a 7 out of 10. Patient denies any new trauma or injury. Patient denies any change in location or type of pain she experiences. She states her pain is all in her low back along the right side radiating into her right leg and describes it as an aching, throbbing sensation that is worse with increased activity. She does state it is difficult to perform activities of daily living such as cooking and cleaning due to the pain. She states initially after this last injection she was able to do more around her home with decreased pain symptoms and felt more functional on a day-to-day basis. She is interested in repeating her prior injection. Patient is currently managed with methocarbamol 500 mg twice a day however she states it has not been working as well. Her Deejay is [phone]. Its been reviewed and appropriate. Review of Systems: General: No recent weight changes, no fever, no sleep disturbances Respiratory: No cough, no shortness of air, no recurring pulmonary infections Cardiovascular/peripheral vascular: No chest pain, no palpitations, no edema, no shortness of breath Gastrointestinal: No new onset incontinence, normal bowel movements reported Genitourinary: No new onset incontinence Musculoskeletal: Low back pain, right leg pain Psychiatric: [Normal mood/affect] Neurological: [Denies weakness in extremities], [denies balance issues] Objective:: Physical Exam: General: Alert and oriented x3, no acute distress, pleasant and cooperative Lungs: Respirations even and unlabored, symmetrical chest expansion Eyes: PERRL Musculoskeletal: Flexion and extension of lumbar [spine] somewhat guarded secondary to pain, [antalgic gait noted] Neurological: Speech clear, no gross sensory deficit Assessment:: degenerative disc disease of the lumbar spine with lumbar radiculopathy symptoms, lumbar spondylosis, lumbar facet arthropathy, ligamentum flavum hypertrophy, lumbar spinal stenosis, myofascial pain Plan:: Patient had upwards of 70% improvement following her last transforaminal epidural. Today she is having worsening pain symptoms in her low back along the right side with limited range of motion. I have discussed with the patient that she may benefit from repeating this injection. Risk and benefits were discussed with the patient and she would like to proceed forward with this plan of care. Patient is not on any blood thinners. Patient has tried and failed conservative therapy such as oral medications, heat and ice, topicals, physical therapy, at home stretching exercise for longer than 6 weeks. I will also send in a new prescription of methocarbamol 750 mg twice daily and provide a 1 month supply of this medication. We will schedule the patient for a right transforaminal L4-L5 and L5-S1. Patient has been instructed to contact the clinic with any concerns before the next appointment. Dr. Adame has reviewed this note and agrees with this plan of care. This note was dictated using voice recognition software and make contain errors or omissions. [facility] Disclaimer: The information contained in this section may have been updated after the patient was seen, as this information can be updated by other users. 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 Bilateral serous otitis media Chronic otitis externa of right ear Chronic pain Lumbar spondylolysis Neuroma neuroma from stump o
== END | disposition home or self-care (01) ==
PROVIDERS: PCP Emergency Medicine; Visit Provider Nurse Practitioner Family
DX: M51.16 Intervertebral disc disorders with radiculopathy, lumbar region (principal); M48.061 Spinal stenosis, lumbar region without neurogenic claudication; M47.26 Other spondylosis with radiculopathy, lumbar region; M79.10 Myalgia, unspecified site
CPT/HCPCS: 99212; G0463

== ENCOUNTER → 2022-08-07 08:58 | Outpatient (POV) | payer MEDICARE, MEDICAID, SELFPAY ==
--- NOTE | 2022-08-07 09:35 | EXP.PAIN.SOA ---
[facility] Pain Management SOAP Note Subjective:: Patient is a pleasant 66-year-old female who presents today for insurance denial of right transforaminal epidural. We are currently treating the patient for degenerative disc disease of lumbar spine with lumbar radiculopathy symptoms, lumbar spondylosis, lumbar facet arthropathy, ligamentum flavum hypertrophy, lumbar spinal stenosis, myofascial pain. Today she rates her pain an 8 out of 10. Patient denies any new trauma or injury. Patient denies any change to location or type of pain she experiences. She continues to have significant pain all along her low back with radiating symptoms and describes it as an aching, throbbing sensation that is worse with increased activity. Patient does state it makes it difficult performing activities of daily living such as cooking and cleaning. Patient does continue to take rmbe-bys-lunuduv Tylenol and ibuprofen along with heat and ice and topicals with minimal relief. Patient is currently prescribed methocarbamol 750 mg twice a day however she states that she still has not noticed significant relief with these medications. Patient is not on any scheduled medications. Her Deejay is [phone]. Its been reviewed and appropriate. Review of Systems: General: No recent weight changes, no fever, no sleep disturbances Respiratory: No cough, no shortness of air, no recurring pulmonary infections Cardiovascular/peripheral vascular: No chest pain, no palpitations, no edema, no shortness of breath Gastrointestinal: No new onset incontinence, normal bowel movements reported Genitourinary: No new onset incontinence Musculoskeletal: Low back pain, leg pain Psychiatric: [Normal mood/affect] Neurological: [Denies weakness in extremities], [denies balance issues] Objective:: Physical Exam: General: Alert and oriented x3, no acute distress, pleasant and cooperative Lungs: Respirations even and unlabored, symmetrical chest expansion Eyes: PERRL Musculoskeletal: Flexion and extension of lumbar [spine] somewhat guarded secondary to pain, [antalgic gait noted] Neurological: Speech clear, no gross sensory deficit Assessment:: Degenerative disc disease of lumbar spine with lumbar radiculopathy symptoms, lumbar spondylosis, lumbar facet arthropathy, ligamentum flavum hypertrophy, lumbar spinal stenosis, myofascial pain Plan:: Patient is experiencing severe pain in her low back with radiating symptoms into her lower extremities. Patient had limited range of motion of her lumbar spine during today's visit. I have discussed with the patient that she may benefit from a lumbar epidural steroid injection. Risk and benefits were discussed with the patient and she would like to proceed forward with this plan of care. Patient is not on any blood thinners. Patient has tried and failed conservative therapies such as axue-emr-gecatha medications, heat and ice, topicals, physical therapy, at home stretching exercise for longer than 6 weeks. I will send in a prescription for tizanidine 4 mg twice daily and provide a 1 month supply of this medication. I have counseled the patient to discontinue her methocarbamol while taking this medication. Patient will be scheduled for an LESI L4-L5. Patient has been instructed to contact the clinic with any concerns before the next appointment. Dr. Adame has reviewed this note and agrees with this plan of care. This note was dictated using voice recognition software and make contain errors or omissions. [facility] Disclaimer: The information contained in this section may have been updated after the patient was seen, as this information can be updated by other users. 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
[2022-08-07 10:11] VITALS: BP 144/83; PULSE 63; RESP 18; O2SAT 97; BMI 30.5
== END | disposition home or self-care (01) ==
PROVIDERS: PCP Physician Assistant; Visit Provider Nurse Practitioner Family
DX: M51.16 Intervertebral disc disorders with radiculopathy, lumbar region (principal); M47.26 Other spondylosis with radiculopathy, lumbar region; M48.061 Spinal stenosis, lumbar region without neurogenic claudication; M79.10 Myalgia, unspecified site
CPT/HCPCS: 99212; G0463

== ENCOUNTER 2022-09-03 07:52 | Day surgery (SDC) | payer MEDICARE, MEDICAID, SELFPAY ==
[2022-09-03 08:11] VITALS: BP 155/73; PULSE 64; RESP 16; TEMP 36.3; O2SAT 100; BMI 30.5
[2022-09-03 08:51] VITALS: BP 176/85; PULSE 64; RESP 20
--- NOTE | 2022-09-03 08:58 | EXP.PAIN.PRO ---
Procedure Date: 09/03/22 Time: 08:35 Anesthesiologist:: Kaden Garcia CRNA Complications:: None Pre-procedure Diagnosis:: Degenerative disc disease lumbar spine multilevels. Lumbar radiculopathy. Lumbar spondylosis at the level lumbar facet arthropathy Post-procedure Diagnosis:: Same. Indications for Procedure:: Patient is a very pleasant 66-year-old female that comes our clinic today for repeat lumbar epidural steroid injection at the L4-5 level. Patient has had epidural injections in the past same level with significant improvement terms of her overall low back pain as well as bilateral hip and leg radicular symptoms. Patient rates her pain today 08/19 Procedure Details:: Procedure: Lumbar epidural steroid injection under fluoroscopy Informed consent was obtained and the risks and benefits of the procedure were explained to the patient. The patient was taken to the procedure room and noninvasive monitors placed, including noninvasive blood pressure cuff and pulse oximeter. The back was viewed using C-arm Fluoroscopy and prepped using Chloraprep as a cleansing solution and the L4-L5 interspace was palpated. Skin and subcutaneous tissues were anesthetized using lidocaine 1.5% and a 25-gauge needle. After this, an 18-gauge Touhy epidural needle was placed into the L4-L5 interspace and advanced using fluoroscopic guidance and loss of resistance to air until the epidural space was encountered. After confirmation of needle placement in the epidural space, with dye, a solution containing normal saline, 3 mL and Depo-Medrol 80 mg were incrementally injected into the lumbar epidural space. The patient tolerated the procedure well with no complications. The patient was observed in the Pain Clinic and then discharged home neurologically intact. Plan and Disposition:: Patient was discharged without incident.
[2022-09-03 09:09] VITALS: BP 136/59; PULSE 62; RESP 18; O2SAT 98
== END 2022-09-03 09:00 | disposition home or self-care (01) ==
PROVIDERS: PCP Physician Assistant; Visit Provider Nurse Anesthetist, Certified Registered
DX: M51.16 Intervertebral disc disorders with radiculopathy, lumbar region (principal); M47.26 Other spondylosis with radiculopathy, lumbar region
CPT/HCPCS: 62323; J1040

== ENCOUNTER 2022-09-10 03:55 | Emergency (ER) | payer MEDICARE, MEDICAID, SELFPAY ==
[2022-09-10 03:56] VITALS: BP 200/79; PULSE 84; RESP 18; TEMP 36.4; O2SAT 98; BMI 30.5
--- NOTE | 2022-09-10 04:06 | PC.NURSE ---
in room at this time.
--- NOTE | 2022-09-10 04:13 | CT_ITS ---
PROCEDURE INFORMATION: Exam: CT Abdomen And Pelvis With Contrast Exam date and time: 09/10/2022 4:41 AM Age: 66 years old Clinical indication: Abdominal pain; Localized; Patient HX: PT states right sided/right flank pain; Additional info: Rlq/right flank/right paraspinal pain TECHNIQUE: Imaging protocol: Computed tomography of the abdomen and pelvis with contrast. Radiation optimization: All CT scans at this facility use at least one of these dose optimization techniques: automated exposure control; mA and/or kV adjustment per patient size (includes targeted exams where dose is matched to clinical indication); or iterative reconstruction. Contrast material: ISOVUE; Contrast volume: 75 ml; Contrast route: IV; REPORTING DATA: Count of CT and Cardiac NM exams in prior 12 months: This patient has received [address] and 0 known cardiac nuclear medicine studies in the 12 months prior to the current study. COMPARISON: ABDPELW CT ABD PELVIS W/ CONTRAST 11/07/2016 3:07 PM FINDINGS: Lungs: Clear basilar lung parenchyma. Pleural spaces: No pleural fluid. Heart: Normal heart size. Liver: Homogeneous low attenuation throughout the liver is compatible with fatty infiltration. Liver measures 18.4 cm in length. Gallbladder and bile ducts: Prior cholecystectomy. No biliary tree dilation or high-density retained stones appreciated. Pancreas: Normal. No ductal dilation. Spleen: Spleen measures 12.5 cm in length. Adrenal glands: Normal configuration. Kidneys and ureters: No evidence of obstruction. No visible inflammation. Stomach and bowel: Unremarkable. No obstruction. No mural thickening. Appendix: Normal appendix is in a retrocecal position. Intraperitoneal space: No free air. No significant fluid collection. Vasculature: Mild aortoiliac calcific atherosclerosis. Lymph nodes: No enlarged lymph nodes. Urinary bladder: Unremarkable as visualized. Reproductive: Prior hysterectomy. No evidence of vaginal cuff or adnexal mass. Bones/joints: No acute bony abnormality. Widely patent spinal canal. No significant degenerative change. Prior left hip ORIF. Soft tissues: Tiny fat containing umbilical hernia. IMPRESSION: No acute abnormality identified to explain patient's flank pain. In particular, there is no evidence of urolithiasis. A normal appendix is confirmed. Normal psoas margins. No significant spinal degenerative change.
[2022-09-10 04:18] LABS: Microscopic, Urine URINE MICROSCOPIC (MICROSCOPIC)
--- NOTE | 2022-09-10 04:22 | HMH.EDGENADL ---
Discharge Plan Disposition Patient Disposition: Home, Self-Care Condition: Good Prescriptions Prescriptions: New ondansetron 4 mg tablet,disintegrating 4 mg PO Q6H PRN (Reason: nausea and vomiting) Qty: 20 0RF No Action hydroxyzine pamoate [Vistaril] 25 mg capsule 25 mg PO Q8H PRN (Reason: anxiety) Qty: 30 2RF losartan-hydrochlorothiazide 100-25 mg tablet 1 tab PO DAILY ergocalciferol (vitamin D2) 1,250 mcg (50,000 unit) capsule 50,000 unit PO QWEEK Qty: 14 3RF hydrocodone-acetaminophen 5-325 mg tablet 1 tab PO Q4-6H PRN (Reason: pain) Qty: 30 0RF diazepam [Valium] 2 mg tablet 2 mg PO TID PRN (Reason: back pain) Qty: 3 0RF methocarbamol 750 mg tablet 750 mg PO BID alendronate 70 mg tablet See Rx Instructions .ROUTE .COMPLEX Rx Instructions: TAKE ONE TABLET BY MOUTH ONCE a WEEK clonidine HCl 0.3 mg tablet See Rx Instructions .ROUTE .COMPLEX Rx Instructions: TAKE ONE TABLET BY MOUTH EVERY 8 HOURS FOR BLOOD PRESSURE lidocaine [Lidoderm] 5 % adhesive patch,medicated 1 patch topical DAILY Rx Instructions: leave on most painful area for up to 12 hrs levothyroxine 150 mcg tablet See Rx Instructions .ROUTE .COMPLEX Rx Instructions: TAKE ONE TABLET BY MOUTH EVERY DAY metoprolol succinate 25 mg tablet extended release 24 hr See Rx Instructions .ROUTE .COMPLEX Rx Instructions: TAKE ONE TABLET BY MOUTH EVERY DAY fluticasone propionate [Flonase Allergy Relief] 50 mcg/actuation spray,suspension 1 spray INTRANASAL QDAY Rx Instructions: administer into each nostril cholecalciferol (vitamin D3) 25 mcg (1,000 unit) capsule 25 mcg PO DAILY duloxetine 30 mg capsule,delayed release(DR/EC) See Rx Instructions .ROUTE .COMPLEX Rx Instructions: TAKE ONE CAPSULE BY MOUTH EVERY DAY FOR mood calcium carbonate-vitamin D3 600 mg-10 mcg (400 unit) tablet See Rx Instructions .ROUTE .COMPLEX Rx Instructions: TAKE ONE TABLET BY MOUTH EVERY DAY nebivolol 10 mg tablet See Rx Instructions .ROUTE .COMPLEX Rx Instructions: TAKE ONE TABLET BY MOUTH EVERY DAY pantoprazole 40 mg tablet,delayed release (DR/EC) See Rx Instructions .ROUTE .COMPLEX Rx Instructions: TAKE ONE TABLET BY MOUTH EVERY DAY FOR gerd tizanidine [Zanaflex] 4 mg tablet 4 mg PO BID Referrals Follow up/Referrals: Tiffanie Barry PA [Primary Care Provider] - See instructions Activity Restrictions/Add. Instructions Additional Instructions/Restrictions: Please follow-up with your primary care provider. Please return to the emergency department if you develop any new or worsening symptoms or become concerned for your health. Please take Zofran as needed for nausea. Clinical Impressions Clinical Impression: Abdominal wall pain in right flank Discharge ED Provider: Rene Gaona General Adult HPI General Chief complaint: PAIN Stated complaint: Pain in right side waist line area,back pain Time Seen by Provider: 09/10/22 04:05 Mode of Arrival: Ambulatory Source of Information: Patient Limitations: No Limitations Description of Symptoms (Recalled from ER Triage Doc. by RN): Pt present with right sided flank pain that began at approx 2am, complains of nausea no vomiting. No hx of kidney stones. History of Present Illness HPI narrative: 66-year-old female history of chronic lumbar back pain, hypertension presents with acute onset right lower quadrant/right-sided flank pain radiating to her back. Began around 2 AM. Patient reports pain is moderate to severe. Reports associated nausea but no vomiting. Reports that she has had normal bowel movements, denies urinary symptoms. Reports a history of kidney stones. Reports history of cholecystectomy, no bowel surgeries. Related Data Home Medications Medication Instructions Recorded Confirmed losartan 100 1 tab PO DAILY BLOOD PRESSURE 04/18/22
[2022-09-10 04:23] LABS: Appearance,Urine CLEAR (Clear); Bilirubin,Urine Negative (Negative); Blood, Urine Negative (Negative); Color,Urine YELLOW (Yellow); Glucose,Urine (UA) Negative (Negative); Ketones,Urine Negative (Negative); Leukocyte Esterase,Urine TRACE (Negative); Nitrate,Urine Negative (Negative); Protein,Urine Negative (Negative); Urobilinogen,Urine 0.2 EU/dl (0.2)
[2022-09-10 04:24] LABS: Basophils % 0.5 % (0.1-2.0); Eosinophils # 0.1 K/mm3 (0.0-0.4); Eosinophils % 0.7 % (0.1-12.0); Hematocrit 47.4 % (37.0-47.0); Hemoglobin 15.3 g/dL (12.2-16.2); Lymphocytes # 3.2 K/mm3 (0.7-4.5); Lymphocytes % 40.7 % (10-50); Mean Corpuscular HGB Conc 32.2 g/dL (31.8-35.4); Mean Corpuscular Hemoglobin 29.2 pg (27.0-31.2); Mean Corpuscular Volume 90.6 fl (81-99); Mean Platelet Volume 7.7 fl (7.4-10.4); Monocytes # 0.5 K/mm3 (0.1-1.0); Monocytes % 5.8 % (1.7-9.3); Neutrophils # 4.1 K/mm3 (1.8-7.8); Neutrophils % 52.2 % (37.0-80.0); Platelet Count 237 K/mm3 (142-424); Red Blood Count 5.24 M/mm3 (4.20-5.40); Red Cell Distribution Width 13.5 % (11.5-17.5); White Blood Count 7.9 K/mm3 (4.8-10.8)
[2022-09-10 04:25] LABS: Chloride 105 mmol/L (98-107); Potassium 4.1 mmoL/L (3.5-5.1); Sodium 141 mmol/L (136-145)
[2022-09-10 04:27] LABS: Alanine Aminotransferase 28 U/L (12-78); Aspartate Amino Transferase 30 U/L (14-36); Blood Urea Nitrogen 14 mg/dl (7-17); Creatinine Clearance Estimated 84 mL/min (50-200); Estimated Glomerular Filt Rate 84 ml/min (>60); GFR (African American) 101 ML/MIN (>60)
[2022-09-10 04:28] LABS: Albumin Level 4.8 g/dl (3.5-5.0); Albumin/Globulin Ratio 1.4 (1.1-1.8); Alkaline Phosphatase 90 U/L (38-126); Anion Gap 11.1 mEq/L (5-15); Bilirubin,Total 0.5 mg/dl (0.2-1.3); Carbon Dioxide 29 mmol/L (22.0-30.0); Globulin 3.4 g/dL (1.3-3.2); Glucose 112 mg/dl (74-100); Total Protein,Serum 8.2 g/dl (6.3-8.2)
[2022-09-10 04:38] LABS: Bacteria,Urine Trace /lpf; WBC,Urine Occasional #/hpf (0-3)
[2022-09-10 05:10] VITALS: BP 157/61; PULSE 96; RESP 16; TEMP 36.7; O2SAT 97
== END 2022-09-10 05:17 | disposition home or self-care (01) ==
PROVIDERS: Emergency Provider Emergency Medicine; PCP Physician Assistant
DX: R10.31 Right lower quadrant pain (principal); M54.50 Low back pain, unspecified; G89.29 Other chronic pain; I10 Essential (primary) hypertension
CPT/HCPCS: 74177; 80053; 81001; 85025; 96361; 96374; 96375; 99285; J2405; Q9967

== ENCOUNTER → 2022-09-18 08:24 | Outpatient (POV) | payer MEDICARE, MEDICAID, SELFPAY ==
[2022-09-18 08:48] VITALS: BP 123/72; PULSE 63; RESP 18; O2SAT 98; BMI 30.5
--- NOTE | 2022-09-18 10:02 | EXP.PAIN.SOA ---
[facility] Pain Management SOAP Note Subjective:: Patient is a pleasant 66-year-old female who presents today for follow-up of lumbar epidural steroid injection L4-L5 on 09/03/2022. We are currently treating the patient for degenerative disc disease of lumbar spine with lumbar radiculopathy symptoms, lumbar facet arthropathy, lumbar spondylosis, myofascial pain. Today she rates her pain a 6 out of 10. Patient states that she did have some improvement with this injection however she feels like she is already back to her baseline today. She would write approximately 40% relief following this injection. Patient does state her pain today is all in her low back with radiating symptoms to her right hip and right leg. Patient does describe this as an aching, throbbing sensation that is worse with increased activity. Patient does state the pain interferes with her ability perform activities of daily living such as cooking and cleaning. Patient has tried [id number]-[id number] medication such as Tylenol and ibuprofen along with heat and ice and muscle relaxers including methocarbamol but did not provide significant relief. She is currently prescribed tizanidine however she states it does cause her to sleep so she only takes it at bedtime. Patient does state that she continues to have worsening pain during the day. She is not on any scheduled medications. Her Deejay is [id number]. Has been reviewed and appropriate. Review of Systems: General: No recent weight changes, no fever, no sleep disturbances Respiratory: No cough, no shortness of air, no recurring pulmonary infections Cardiovascular/peripheral vascular: No chest pain, no palpitations, no edema, no shortness of breath Gastrointestinal: No new onset incontinence, normal bowel movements reported Genitourinary: No new onset incontinence Musculoskeletal: Low back pain, right hip pain, right leg pain Psychiatric: [Normal mood/affect] Neurological: [Denies weakness in extremities], [denies balance issues] Objective:: Physical Exam: General: Alert and oriented x3, no acute distress, pleasant and cooperative Lungs: Respirations even and unlabored, symmetrical chest expansion Eyes: PERRL Musculoskeletal: Flexion and extension of lumbar [spine] somewhat guarded secondary to pain, [antalgic gait noted] positive right leg raise with decreased right Achilles reflex and decreased sensation to light touch along her right leg Neurological: Speech clear, no gross sensory deficit Assessment:: Degenerative disc disease of lumbar spine with lumbar radiculopathy symptoms, lumbar facet arthropathy, lumbar spondylosis, myofascial pain, right leg pain Plan:: Patient is experiencing significant pain in her low back with radiating symptoms to her right hip and right leg. Patient did have limited range of motion of her lumbar spine along with a positive right leg raise and decreased Achilles reflex with decreased sensation to light touch on her right extremity during today's exam. I have discussed with the patient that she does have findings consistent with possible nerve root impingement and that she may benefit from a transforaminal epidural steroid injection. Risk and benefits were discussed with the patient and she would like to proceed forward with this plan of care. Patient has tried and failed conservative therapies such as oral medication, heat and ice, topicals, physical therapy, at home stretching exercise for longer than 6 weeks. Patient is not on any blood thinners. I will also prescribe baclofen 5 mg twice daily for during the day and that she can continue to take her tizanidine 4 mg at night. Patient will be scheduled for a right transforaminal epidural steroid injection L4-L5 and L5-S1. Patient has been instructed to contact the clinic with any concerns before the next appointment. Dr. Adame has reviewed this note and agrees with this plan of care. This note was dictated using voice recognition software and make contain errors or vin
== END | disposition home or self-care (01) ==
PROVIDERS: PCP Physician Assistant; Visit Provider Nurse Practitioner Family
DX: M51.16 Intervertebral disc disorders with radiculopathy, lumbar region (principal); M47.26 Other spondylosis with radiculopathy, lumbar region; M79.10 Myalgia, unspecified site; M79.604 Pain in right leg
CPT/HCPCS: 99212; G0463

== ENCOUNTER 2023-03-06 21:52 | Outpatient (CLI) | payer MEDICARE, MEDICAID, SELFPAY ==
[2023-03-06 19:02] LABS: Chol/HDL Ratio 3.2 (1-3.5); Cholesterol 184 mg/dl (140-200); HDL Cholesterol 57 mg/dl (40-60); Triglycerides 135 mg/dl (30-150); VLDL Cholesterol 27 mg/dL (0-40)
[2023-03-06 19:28] LABS: Direct LDL Cholesterol 101.58 mg/dL (100-129)
== END 2023-03-06 23:59 ==
LOC: LAB.DROPOF 21:52
PROVIDERS: PCP Family Medicine; Visit Provider Family Medicine
DX: E78.5 Hyperlipidemia, unspecified (principal); E03.9 Hypothyroidism, unspecified; R51.9 Headache, unspecified; J02.9 Acute pharyngitis, unspecified; H65.93 Unspecified nonsuppurative otitis media, bilateral; Z79.899 Other long term (current) drug therapy
CPT/HCPCS: 80061; 84443

== ENCOUNTER 2023-05-07 17:57 | Emergency (ER) | payer MEDICARE, MEDICAID, SELFPAY ==
[2023-05-07 17:59] VITALS: BP 192/97; PULSE 122; RESP 16; TEMP 37; O2SAT 95; BMI 30.4
--- NOTE | 2023-05-07 18:04 | ECG_ITS ---
APPROVED REPORT Exam: Resting ECG HR:120 bpm ECG Measurements Heart Rate 120 AXES AK 169 P 47 QRSd 97 QRS 92 QT 306 T 8 QTc 377 Conclusion SINUS TACHYCARDIA BORDERLINE RIGHT AXIS DEVIATION [QRS AXIS > 90] LOW QRS VOLTAGE IN EXTREMITY LEADS [QRS DEFLECTION < 0.5 mV IN LIMB LEADS] ABNORMAL RHYTHM ECG UNCONFIRMED REPORT Electronically signed by : NANCY WHYTE, 05/09/2023 01:59:37
--- NOTE | 2023-05-07 18:26 | ED_ITS ---
Discharge Plan Disposition Patient Disposition: Home, Self-Care Prescriptions Prescriptions: No Action hydroxyzine pamoate [Vistaril] 25 mg capsule 25 mg PO Q8H PRN (Reason: anxiety) Qty: 30 2RF losartan-hydrochlorothiazide 100-25 mg tablet 1 tab PO DAILY hydrocodone-acetaminophen 5-325 mg tablet 1 tab PO Q4-6H PRN (Reason: pain) Qty: 30 0RF methylprednisolone [Medrol (Stephen)] 4 mg tablets,dose pack See Rx Instructions PO PER PKG DIR Qty: 21 0RF Rx Instructions: PO PER PKG DIR amoxicillin 500 mg tablet 500 mg PO BID 10 Days Qty: 20 0RF ergocalciferol (vitamin D2) 1,250 mcg (50,000 unit) capsule 50,000 unit PO QWEEK Qty: 14 3RF alendronate 70 mg tablet See Rx Instructions .ROUTE .COMPLEX Rx Instructions: TAKE ONE TABLET BY MOUTH ONCE a WEEK clonidine HCl 0.3 mg tablet See Rx Instructions .ROUTE .COMPLEX Rx Instructions: TAKE ONE TABLET BY MOUTH EVERY 8 HOURS FOR BLOOD PRESSURE levothyroxine 150 mcg tablet See Rx Instructions .ROUTE .COMPLEX Rx Instructions: TAKE ONE TABLET BY MOUTH EVERY DAY fluticasone propionate [Flonase Allergy Relief] 50 mcg/actuation spray,suspension 1 spray INTRANASAL QDAY Rx Instructions: administer into each nostril cholecalciferol (vitamin D3) 25 mcg (1,000 unit) capsule 25 mcg PO DAILY duloxetine 30 mg capsule,delayed release(DR/EC) See Rx Instructions .ROUTE .COMPLEX Rx Instructions: TAKE ONE CAPSULE BY MOUTH EVERY DAY FOR mood calcium carbonate-vitamin D3 600 mg-10 mcg (400 unit) tablet See Rx Instructions .ROUTE .COMPLEX Rx Instructions: TAKE ONE TABLET BY MOUTH EVERY DAY nebivolol 10 mg tablet See Rx Instructions .ROUTE .COMPLEX Rx Instructions: TAKE ONE TABLET BY MOUTH EVERY DAY pantoprazole 40 mg tablet,delayed release (DR/EC) See Rx Instructions .ROUTE .COMPLEX Rx Instructions: TAKE ONE TABLET BY MOUTH EVERY DAY FOR gerd Referrals Follow up/Referrals: Tiffanie Barry PA [Primary Care Provider] - See instructions Activity Restrictions/Add. Instructions Additional Instructions/Restrictions: Call your family doctor to establish care for this visit to the emergency department and schedule follow-up within 48 hours to ensure improvement. If you have any worsening of your condition or any other concerning signs or symptoms, return to the emergency department or your primary care doctor for further evaluation. Clinical Impressions Clinical Impression: Tachycardia, Hypertension Discharge ED Provider: David Monge General Adult HPI General Chief complaint: Arrhythmia/Palpitations Stated complaint: High blood pressure and pulse Time Seen by Provider: 05/07/23 18:03 History of Present Illness HPI narrative: 67-year-old female with a history of hypertension, hyperlipidemia, A-fib not on anticoagulation, CAD presenting with hypertension and tachycardia. Started today, insidious onset. Nothing in particular makes it better or worse. States that she has been taking all her medications as prescribed, does not any of her medications and states that they are in the chart. No chest pain, shortness of breath, nausea, vomiting, PND, orthopnea, lower extremity swelling, or any other concerns. Please note that above description of symptoms, in this electronic medical record under categorization of recalled from ER triage doctor by RN are reflective of an initial nursing assessment, however, is not reflective of my full history and physical exam that was personally taken and clarified. Consequentially, this preceding description of symptoms, which may include the patient's categorized chief complaint in the EMR, do not reflect my personal clinical impression, and the ultimate description of history of present illness and patient stated complaints should be deferred to this section of the note. Unless stated otherwise or congruent with this section of the note, additional signs, symptoms, or incongruence should be interpreted as inaccurate with my clinical impression. Related Data Home Medications Medication Instructions Recorded Confirmed losartan 100 1 tab PO DAILY BLOOD PRESSURE 04/18/22 03/06/23 mg-hydrochlorothiazide 25 mg tablet alendronate 70 mg tablet See Rx Instructions .Route 05/20/22 03/06/23 .COMPLEX N/A calcium carbonate 600 mg-vitamin See Rx Instructions .Route 05/20/22 03/06/23 D3 10 mcg (400 unit) tablet .COMPLEX SUPPLIMENT cholecalciferol (vitamin D3) 25 25 mcg PO DAILY SUPPLIMENT 05/20/22 03/06/23 mcg (1,000 unit) capsule clonidine HCl 0.3 mg tablet See Rx Instructions .Route 05/20/22 03/06/23 .COMPLEX BLOOD PRESSURE duloxetine 30 mg capsule,delayed See Rx Instructions .Route 05/20/22 03/06/23 release .COMPLEX MOOD fluticasone propionate 50 1 spray intranasal QDAY ALLERGIES 05/20/22 03/06/23 mcg/actuation nasal spray,suspension (Flonase Allergy Relief) levothyroxine 150 mcg tablet See Rx Instructions .Route 05/20/22 03/06/23 .COMPLEX THYROID nebivolol 10 mg tablet See Rx Instructions .Route 05/20/22 03/06/23 .COMPLEX BLOOD PRESSURE pantoprazole 40 mg tablet,delayed See Rx Instructions .Route 06/25/22 03/06/23 release .COMPLEX . Previous Rx's Medication Instructions Recorded hydroxyzine pamoate 25 mg capsule 25 mg PO Q8H PRN anxiety #30 caps 06/29/20 (Vistaril) ergocalciferol (vitamin D2) 1,250 50,000 unit PO QWEEK Supplement 09/18/21 mcg (50,000 unit) capsule #14 caps amoxicillin 500 mg tablet 500 mg PO BID 10 days #20 tabs 03/06/23 hydrocodone 5 mg-acetaminophen 325 1 tab PO Q4-6H PRN pain #30 tabs 03/06/23 mg tablet methylprednisolone 4 mg tablets in See Rx Instructions PO PER PKG DIR 03/06/23 a dose pack (Medrol (Stephen)) #21 tabs Allergies Allergy/AdvReac Type Severity Reaction Status Date / Time morphine [MORPHINE] Allergy Intermediate I-RASH/ITCH Verified 03/06/23 13:12 [facility] Disclaimer: The information contained in this section may have been updated after the patient was seen, as this information can be updated by other users. 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-she has neuralgia discomfort on her previous incision for parotidectomy on the right Otitis media Right-sided low back pain with right-sided sciatica Vitamin D deficiency (~06/26/17) Family History Other No significant family history Social History Smoking Status: Never smoker second hand exposure: No alcohol intake: never counseling provided: none substance use type: denies use current occupational status: retired Travel in the last 8 weeks: None household members: spouse housing: house 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 current occupational exposures/hazards: No caffeine: No ROS Obtained: Yes All systems reviewed & no additional complaints except as documented Physical Exam General General appearance: alert and in no apparent distress Head Head exam: atraumatic and normocephalic Eye Eye exam: Present normal appearance, PERRL and EOMI ENT ENT exam: Present mucous membranes moist Neck Neck exam: Present normal inspection, full ROM and trachea midline Respiratory Respiratory exam: Absent respiratory distress, wheezes, stridor, accessory muscle use or prolonged expiratory phase Cardiovascular Cardiovascular exam: Present normal rhythm Abdominal Exam Abdominal exam: Present soft; Absent distention, tenderness, guarding, rebound or rigidity Extremities Exam Extremities exam: Absent edema Neurological Exam Neurological exam: Present alert, oriented X3, CN II-XII intact and normal gait; Absent motor sensory deficit Skin Skin exam: Present warm and dry; Absent diaphoresis or erythema Medical Decision Making Medical Records Medical records reviewed: Yes I reviewed the patient's medical records. Deejay Inquiry Pt receiving controlled substance: No Deejay was queried for this patient: No Vital Signs: 05/07/23 17:59 05/07/23 18:30 05/07/23 19:01 Temperature 98.6 F Temperature Source Oral Pulse Rate 91 H 102 H Pulse Rate [Left Radial] 122 H Respiratory Rate 16 23 23 Blood Pressure 157/82 H 151/91 H Blood Pressure [Right Arm] 192/97 H Blood Pressure Mean [Right Arm] 128 Blood Pressure Source Blood Pressure Position 02 Sat by Pulse Oximetry 95 95 94 L Oxygen Delivery Method Room Air Room Air 05/07/23 19:07 05/07/23 19:30 05/07/23 21:30 Temperature 98.7 F Temperature Source Oral Pulse Rate 88 86 Pulse Rate [Left Radial] Respiratory Rate 21 16 Blood Pressure 136/88 155/80 H 130/66 Blood Pressure [Right Arm] Blood Pressure Mean [Right Arm] Blood Pressure Source Automatic Cuff Blood Pressure Position Sitting 02 Sat by Pulse Oximetry 95 Oxygen Delivery Method Room Air Lab Data Lab Results 05/07/23 18:08: WBC 7.9, RBC 4.99, Hgb 15.4, Hct 45.7, MCV 91.7, MCH 30.9, MCHC 33.7, RDW 14.1, Plt Count 235, MPV 7.9, Neut % (Auto) 77.0, Lymph % (Auto) 15.2, [place] % (Auto) 6.3, Eos % (Auto) 0.5, Baso % (Auto) 0.9, Neut # (Auto) 6.0, Lymph # (Auto) 1.2, [place] # (Auto) 0.5, Eos # (Auto) 0.0, Baso # (Auto) 0.1, D-Dimer 0.65 H, Sodium 140, Potassium 3.8, Chloride 106, Carbon Dioxide 25, Anion Gap 12.8, BUN 10, Creatinine 0.80, Estimated Creat Clear 83, Estimated GFR 72, Est GFR ( Amer) 87, Glucose 115 H, Calcium 9.7, Magnesium 2.2, Total Bilirubin 0.7, AST 37 H, ALT 30, Alkaline Phosphatase 73, Troponin I < 0.01, N T-Pro-B Natriuret Pep 168 H, Total Protein 7.7, Albumin 4.7, Globulin 3.0, Albumin/Globulin Ratio 1.6, Lipase 102, TSH 5.32 H, Thyroxine (T4) 8.2 05/07/23 18:08 05/07/23 18:08 Orders (Tests/Meds): ED MEDICATIONS Discontinued Medications Generic Name Dose Route Start Last Admin Trade Name Freq PRN Reason Stop Dose Admin Hydromorphone HCl 0.5 mg 05/07/23 18:29 05/07/23 18:33 Hydromorphone 2mg/Ml Syringe IV 05/07/23 18:30 Not Given ONCE ONE Lactated Ringer's 2,000 mls @ 999 mls/hr 05/07/23 18:31 05/07/23 18:33 Lactated Ringer's 1000 Ml Bag IV 05/07/23 20:31 Not Given .Q2H1M ONE Iopamidol 70 ml 05/07/23 19:42 05/07/23 19:45 Iopamidol-370 (76%);100ml Bottle IV 05/07/23 19:43 70 ml ONCE ONE Administration Labetalol HCl 10 mg 05/07/23 18:48 05/07/23 19:07 Labetalol 20mg/4ml Syringe IV 05/07/23 18:49 10 mg ONCE ONE Administration Ondansetron HCl 4 mg 05/07/23 18:28 05/07/23 18:33 Ondansetron 4mg/2ml Vial IV 05/07/23 18:29 Not Given ONCE ONE Sodium Chloride 10 ml 05/07/23 18:29 Sodium Chloride 0.9% 10ml Flush Syringe IV 06/06/23 18:28 NEEDED PRN Maintain IV Site Sodium Chloride 10 ml 05/07/23 19:42 05/07/23 19:45 Sodium Chloride 0.9% 10ml Syr (Rad Only) IV 05/07/23 19:43 10 ml ONCE ONE Administration Sodium Chloride 40 ml 05/07/23 19:42 05/07/23 19:44 0.9 % Sodium Chloride 50 Ml Vial IV 05/07/23 19:43 40 ml ONCE ONE Administration ORDERS Category Date Time Status CT angio chest PE protocol Stat Cat Scan 05/07/23 19:24 Completed CXR --portable [XR chest portable] Stat Exams 05/07/23 18:35 Completed CBC w/Auto Diff [Complete Blood Count Auto Diff] Stat Lab 05/07/23 18:08 Completed Comprehensive Metabolic Panel Stat Lab 05/07/23 18:08 Completed D-Dimer Stat Lab 05/07/23 18:08 Completed Lipase Stat Lab 05/07/23 18:08 Completed Magnesium Stat Lab 05/07/23 18:08 Completed NT Pro Brain Natriuretic Pep. Stat Lab 05/07/23 18:08 Completed T4 (Thyroxine) Stat Lab 05/07/23 18:08 Completed TSH [Thyroid Stimulating Hormone] Stat Lab 05/07/23 18:08 Completed Troponin I Stat Lab 05/07/23 18:08 Completed HEART Score History (anamnesis): Slightly suspicious ECG: Normal Age: >65 years Risk factors: 1-2 risk factors Troponin: </= normal limit HEART Score: 3 Medical Decision Narrative: 67-year-old female with a history of hypertension, hyperlipidemia, A-fib not on anticoagulation, CAD presenting with hypertension and tachycardia. Started today, insidious onset. Nothing in particular makes it better or worse. States that she has been taking all her medications as prescribed, does not any of her medications and states that they are in the chart. No chest pain, shortness of breath, nausea, vomiting, PND, orthopnea, lower extremity swelling, or any other concerns. History was obtained via conversation with patient. On arrival, patient hemodynamically stable, alert, oriented x4, appropriate, GCS 15, moving all extremities spontaneously, pupils equal and reactive to light. Full physical exam performed and significant for nontachycardic on my exam, 90-95 beats a minute. Lungs are clear to auscultation. Cardiac exam otherwise within normal limits with no murmurs, gallops, rubs. No lower extremity edema. Pulses equal and symmetric. Patient in no acute distress and appears very well. Differential includes ACS, pneumothorax, CHF, PE, medication noncompliance, toxidrome, among others. Patient was given 1 L fluid bolus for symptomatic management and correction of underlying abnormalities. Workup independently interpreted and significant for nonactionable CBC or chemistry. D-dimer mildly elevated, but years criteria negative. Age-adjusted negative. Troponin negative, BNP negative. Chest x-ray negative. Because patient still persistently tachycardic, CT PE was ordered. This was negative for any acute clot in the lungs see radiology read for full review of final results. Independent interpretation of EKG shows sinus tachycardia [address] or T wave changes concerning for acute ischemia. NC, QRS, QT intervals within normal limits. Shelley normal. Heart score 3. On reevaluation, patient resting comfortably bed, nontachycardic and normotensive. Given patient presentation, workup, history, this most likely represents idiopathic, intermittent hypertension and tachycardia. Critical Care Critical Care Time Critical Care Time: No
[2023-05-07 18:30] VITALS: BP 157/82; PULSE 91; RESP 23; O2SAT 95
--- NOTE | 2023-05-07 18:35 | XR_ITS ---
PROCEDURE INFORMATION: Exam: XR Chest Exam date and time: 05/07/2023 6:43 PM Age: 67 years old Clinical indication: Pain; Angina pectoris; Additional info: HTN, tachy TECHNIQUE: Imaging protocol: Radiologic exam of the chest. Views: 1 view. COMPARISON: CR XR CHEST 2V 06/26/2019 8:41 AM FINDINGS: Tubes, catheters and devices: Surgical clips overlie the gallbladder fossa. Lungs: See Pleural spaces finding. Pleural spaces: Low lung volumes are present without pleural effusions or consolidations that project above the diaphragm. Heart/Mediastinum: Unremarkable. No cardiomegaly. Bones/joints: Unremarkable. IMPRESSION: No acute findings.
--- NOTE | 2023-05-07 18:38 | PC.NURSE ---
Rounded on pt. Pt provided with pillow. No other needs voiced and call light remains within reach.
[2023-05-07 18:43] LABS: Basophils # 0.1 K/mm3 (0-0.2); Basophils % 0.9 % (0.1-2.0); Eosinophils % 0.5 % (0.1-12.0); Hematocrit 45.7 % (37.0-47.0); Hemoglobin 15.4 g/dL (12.2-16.2); Lymphocytes # 1.2 K/mm3 (0.7-4.5); Lymphocytes % 15.2 % (10-50); Mean Corpuscular HGB Conc 33.7 g/dL (31.8-35.4); Mean Corpuscular Hemoglobin 30.9 pg (27.0-31.2); Mean Corpuscular Volume 91.7 fl (81-99); Mean Platelet Volume 7.9 fl (7.4-10.4); Monocytes # 0.5 K/mm3 (0.1-1.0); Monocytes % 6.3 % (1.7-9.3); Platelet Count 235 K/mm3 (142-424); Red Blood Count 4.99 M/mm3 (4.20-5.40); Red Cell Distribution Width 14.1 % (11.5-17.5); White Blood Count 7.9 K/mm3 (4.8-10.8)
[2023-05-07 18:50] LABS: Alanine Aminotransferase 30 U/L (12-78); Albumin Level 4.7 g/dl (3.5-5.0); Albumin/Globulin Ratio 1.6 (1.1-1.8); Alkaline Phosphatase 73 U/L (38-126); Anion Gap 12.8 mEq/L (5-15); Aspartate Amino Transferase 37 U/L (14-36); Bilirubin,Total 0.7 mg/dl (0.2-1.3); Blood Urea Nitrogen 10 mg/dl (7-17); Calcium 9.7 mg/dl (8.4-10.2); Carbon Dioxide 25 mmol/L (22.0-30.0); Chloride 106 mmol/L (98-107); Creatinine Clearance Estimated 83 mL/min (50-200); Estimated Glomerular Filt Rate 72 ml/min (>60); GFR (African American) 87 ML/MIN (>60); Glucose 115 mg/dl (74-100); Lipase 102 U/L (23-300); Magnesium 2.2 mg/dl (1.6-2.3); Potassium 3.8 mmoL/L (3.5-5.1); Sodium 140 mmol/L (136-145); Total Protein,Serum 7.7 g/dl (6.3-8.2)
[2023-05-07 18:55] LABS: D-Dimer 0.65 ug/mL (0.0-0.5)
[2023-05-07 19:01] VITALS: BP 151/91; PULSE 102; RESP 23; O2SAT 94
[2023-05-07 19:04] LABS: NT Pro Brain Natriuretic Pep. 168 pg/mL (0-125)
[2023-05-07 19:07] VITALS: BP 136/88
[2023-05-07] MEDS: LABETALOL 20MG/4ML SYRINGE 10 MG IV (19:07)
[2023-05-07 19:08] LABS: Troponin I < 0.01 ng/ml (0.00-0.034)
[2023-05-07 19:09] LABS: T4 (Thyroxine) 8.2 ug/dl (5.53-11.0)
--- NOTE | 2023-05-07 19:09 | PC.NURSE ---
PT MEDICATED PER EMAR, CALL LIGHT WITHIN REACH, DRINK PROVIDED
--- NOTE | 2023-05-07 19:17 | PC.NURSE ---
rounded on patient, pt. sleeping, call light within reach
[2023-05-07 19:22] LABS: Thyroid Stimulating Hormone 5.32 uIU/mL (0.465-4.68)
--- NOTE | 2023-05-07 19:24 | CT_ITS ---
PROCEDURE INFORMATION: Exam: CTA Chest With Contrast Exam date and time: 05/07/2023 7:38 PM Age: 67 years old Clinical indication: Tachypnea; Additional info: Dimer, persistent tachy TECHNIQUE: Imaging protocol: Computed tomographic angiography of the chest with contrast. Exam focused on the arteries. 3D rendering (Not supervised by radiologist): MIP and/or 3D reconstructed images were created by the technologist. Radiation optimization: All CT scans at this facility use at least one of these dose optimization techniques: automated exposure control; mA and/or kV adjustment per patient size (includes targeted exams where dose is matched to clinical indication); or iterative reconstruction. Contrast material: ISOVUE 370; Contrast volume: 70 ml; Contrast route: INTRAVENOUS (IV); COMPARISON: CR XR CHEST PORTABLE 05/07/2023 6:43 PM FINDINGS: Pulmonary arteries: Normal. No pulmonary emboli. Aorta: There is mild calcific atherosclerotic disease of the thoracic aorta without aneurysmal dilatation. Lungs: Dependent bilateral lung base opacities favor atelectasis. Pleural spaces: Unremarkable. No pneumothorax. No pleural effusion. Heart: Unremarkable. No cardiomegaly. No pericardial effusion. Lymph nodes: Prominent mediastinal and hilar lymph nodes are likely reactive. Gallbladder and bile ducts: There are surgical clips within the gallbladder fossa. Bones/joints: Unremarkable. No acute fracture. Soft tissues: Unremarkable. IMPRESSION: 1. No acute findings. 2. No CT angiography evidence of pulmonary embolism.
[2023-05-07 19:30] VITALS: BP 155/80; PULSE 88; RESP 21; O2SAT 95
--- NOTE | 2023-05-07 19:38 | PC.NURSE ---
Pt transported to CT, UA collected and sent to lab if needed.
[2023-05-07] MEDS: 0.9 % SODIUM CHLORIDE 50 ML VIAL 40 ML IV (19:44)
[2023-05-07] MEDS: IOPAMIDOL-370 (76%);100ML BOTTLE 70 ML IV (19:45)
[2023-05-07] MEDS: SODIUM CHLORIDE 0.9% 10ML SYR (RAD ONLY) 10 ML IV (19:45)
--- NOTE | 2023-05-07 21:02 | PC.NURSE ---
Rounded on patient no new complaints noted
[2023-05-07 21:30] VITALS: BP 130/66; PULSE 86; RESP 16; TEMP 37.1; O2SAT 96
== END 2023-05-07 21:30 | disposition home or self-care (01) ==
PROVIDERS: Emergency Provider Emergency Medicine; PCP Physician Assistant
DX: R00.0 Tachycardia, unspecified (principal); I11.9 Hypertensive heart disease without heart failure; I25.10 Atherosclerotic heart disease of native coronary artery without angina pectoris; E78.5 Hyperlipidemia, unspecified; I48.0 Paroxysmal atrial fibrillation
CPT/HCPCS: 71045; 71275; 80053; 83690; 83735; 83880; 84436; 84443; 84484; 85025; 85378; 93005; 96361; 96374; 96375; 99285; Q9967

== ENCOUNTER 2023-05-16 13:44 | Outpatient (CLI) | payer MEDICARE, MEDICAID, SELFPAY ==
--- NOTE | 2023-05-16 13:44 | US_ITS ---
FINAL REPORT CLINICAL HISTORY: . Hypertension COMPARISON: None FINDINGS: RENAL ULTRASOUND: The right kidney measures 9.7 cm in length. No evidence of hydronephrosis or mass is seen. The left kidney measures 11.8 cm in length, and once again no evidence of hydronephrosis or mass is seen. The spleen is borderline enlarged in size, measuring 12.7 cm in length. IMPRESSION: Borderline splenomegaly. No focal renal abnormality identified. Reviewed, Interpreted and Dictated by Car Alcazar III, MD Transcribed by Betty Harvey Authenticated and [facility]
== END 2023-05-16 23:59 ==
LOC: RAD 13:44
PROVIDERS: PCP Physician Assistant; Visit Provider Family Medicine
DX: I10 Essential (primary) hypertension (principal)
CPT/HCPCS: 76770

== ENCOUNTER 2023-05-31 15:14 | Emergency (ER) | payer MEDICARE, MEDICAID, SELFPAY ==
[2023-05-31 15:15] VITALS: BP 169/79; PULSE 86; RESP 18; TEMP 37; O2SAT 96; BMI 29.5
[2023-05-31 15:31] VITALS: BP 169/89; PULSE 93; RESP 18; O2SAT 100
--- NOTE | 2023-05-31 15:39 | XR_ITS ---
PROCEDURE INFORMATION: Exam: XR Right Foot Exam date and time: 05/31/2023 3:40 PM Age: 67 years old Clinical indication: Pain; Ankle; Right; Additional info: Fall, leteral mal pain and swelling TECHNIQUE: Imaging protocol: Radiologic exam of the right foot. Views: 3 or more views. COMPARISON: MR FOOT RT WO CON 06/11/2021 2:19 PM FINDINGS: Bones/joints: An oblique fracture in the distal fibula is in anatomic alignment and may be acute or subacute. No other fractures, dislocations, or focal bone lesions. Mild joint space narrowing in the talonavicular joint. Plantar heel spur. Soft tissues: No masses, soft tissue gas, or radiopaque foreign bodies. IMPRESSION: 1. Oblique nondisplaced fracture in the distal right fibula may be acute or subacute. 2. No other acute findings in the right foot. 3. Mild joint space narrowing in the right talonavicular joint.
--- NOTE | 2023-05-31 15:39 | XR_ITS ---
PROCEDURE INFORMATION: Exam: XR Right Tibia and Fibula Exam date and time: 05/31/2023 3:38 PM Age: 67 years old Clinical indication: Pain; Ankle; Right; Additional info: Fall, leteral mal pain and swelling TECHNIQUE: Imaging protocol: Radiologic exam of the right tibia and fibula. Views: 2 views. COMPARISON: CR XR TIBIA FIBULA RT 2V 04/13/2019 3:29 PM FINDINGS: Bones/joints: Oblique fracture in the distal fibula is in anatomic alignment and may have a small amount of overlying callus. No other fractures, dislocations, or focal bone lesions in the fibula and tibia. Mild bone hypertrophy in the knee. Soft tissues: No soft tissue gas, radiopaque foreign bodies, or masses. IMPRESSION: 1. Nondisplaced fracture in the distal right fibula may be acute or subacute. 2. No other fractures or dislocations in the right tibia and fibula. 3. Mild osteoarthritis in the right knee.
--- NOTE | 2023-05-31 15:39 | XR_ITS ---
PROCEDURE INFORMATION: Exam: XR Right Ankle Exam date and time: 05/31/2023 3:39 PM Age: 67 years old Clinical indication: Pain; Ankle; Right; Additional info: Fall, leteral mal pain and swelling TECHNIQUE: Imaging protocol: Radiologic exam of the right ankle. Views: 3 or more views. COMPARISON: CR Lower leg R 05/31/2023 3:38 PM FINDINGS: Bones/joints: An oblique fracture of the distal fibula may be acute or subacute, with possible callus along the posterolateral margin. No other fractures, dislocations, or focal bone lesions. Mortise joint space is well preserved. Plantar heel spur. Soft tissues: Calcification of the deltoid ligament. Vasculature: Arterial calcifications are present. IMPRESSION: Nondisplaced fracture in the distal right fibula may be acute or subacute.
[2023-05-31] MEDS: ACETAMINOPHEN 500MG TAB 1000 MG PO (15:51)
[2023-05-31] MEDS: IBUPROFEN 600 MG TABLET PO (15:52)
--- NOTE | 2023-05-31 15:54 | PC.NURSE ---
PT RETURNED FROM XR
--- NOTE | 2023-05-31 15:56 | HMH.EDGENADL ---
Discharge Plan Disposition Patient Disposition: Home, Self-Care Chief Complaint: Extremity Injury, Lower Prescriptions Prescriptions: No Action hydroxyzine pamoate [Vistaril] 25 mg capsule 25 mg PO Q8H PRN (Reason: anxiety) Qty: 30 2RF hydrocodone-acetaminophen 5-325 mg tablet 1 tab PO Q4-6H PRN (Reason: pain) Qty: 30 0RF nebivolol 20 mg tablet 20 mg PO DAILY Qty: 30 2RF fluticasone propionate [Flonase Allergy Relief] 50 mcg/actuation spray,suspension 1 spray INTRANASAL QDAY Qty: 16 0RF Rx Instructions: administer into each nostril losartan-hydrochlorothiazide 100-25 mg tablet 1 tab PO DAILY ergocalciferol (vitamin D2) 1,250 mcg (50,000 unit) capsule 50,000 unit PO QWEEK Qty: 14 3RF alendronate 70 mg tablet See Rx Instructions .ROUTE .COMPLEX Rx Instructions: TAKE ONE TABLET BY MOUTH ONCE a WEEK levothyroxine 150 mcg tablet See Rx Instructions .ROUTE .COMPLEX Rx Instructions: TAKE ONE TABLET BY MOUTH EVERY DAY cholecalciferol (vitamin D3) 25 mcg (1,000 unit) capsule 25 mcg PO DAILY duloxetine 30 mg capsule,delayed release(DR/EC) See Rx Instructions .ROUTE .COMPLEX Rx Instructions: TAKE ONE CAPSULE BY MOUTH EVERY DAY FOR mood calcium carbonate-vitamin D3 600 mg-10 mcg (400 unit) tablet See Rx Instructions .ROUTE .COMPLEX Rx Instructions: TAKE ONE TABLET BY MOUTH EVERY DAY pantoprazole 40 mg tablet,delayed release (DR/EC) See Rx Instructions .ROUTE .COMPLEX Rx Instructions: TAKE ONE TABLET BY MOUTH EVERY DAY FOR gerd Referrals Follow up/Referrals: Tiffanie Barry PA [Primary Care Provider] - See instructions Santiago Adams DO [Staff Physician] - See instructions Activity Restrictions/Add. Instructions Additional Instructions/Restrictions: Call your family doctor to establish care for this visit to the emergency department and schedule follow-up within 48 hours to ensure improvement. If you have any worsening of your condition or any other concerning signs or symptoms, return to the emergency department or your primary care doctor for further evaluation. Follow-up with Dr. Adams for further management. Do not bear weight on your ankle and wear boot at all times Clinical Impressions Clinical Impression: Ankle fracture, right Discharge ED Provider: Saleem,Ross A General Adult HPI General Chief complaint: Extremity Injury, Lower Stated complaint: AO04/20@1400 RT ankle inj Time Seen by Provider: 05/31/23 15:22 Mode of Arrival: Wheelchair Source of Information: Patient Limitations: No Limitations Description of Symptoms (Recalled from ER Triage Doc. by RN): r ankle pain. Fell in the swimming pool. pulses good History of Present Illness HPI narrative: 67-year-old female no relevant medical history presenting with right ankle pain. Patient states that she was trying to smooth out the wrinkles in swimming pool ladder, tripped on one of the wrinkles, landed on her right lower extremity. Did not hit her head or sustain any other trauma. Unable to bear weight on the right lower extremity secondary to pain. Pain is primarily lateral aspect of her right ankle, does not radiate, associated with swelling and severe pain. Has not taken anything for the pain as of yet. Please note that above description of symptoms, in this electronic medical record under categorization of recalled from ER triage doctor by RN are reflective of an initial nursing assessment, however, is not reflective of my full history and physical exam that was personally taken and clarified. Consequentially, this preceding description of symptoms, which may include the patient's categorized chief complaint in the EMR, do not reflect my personal clinical impression, and the ultimate description of history of present illness and patient stated complaints should be deferred to this section of the note. Unless stated otherwise or congruent with this section of the note, additional signs, symptoms, or incongruence should be interpreted as inaccurate with my clinical impression. Related Data Home Medications Medication Instructions Recorded Confirmed losartan 100 1 tab PO DAILY BLOOD PRESSURE 04/18/22 05/22/23 mg-hydrochlorothiazide 25 mg tablet alendronate 70 mg tablet See Rx Instructions .Route 05/20/22 05/22/23 .COMPLEX N/A calcium carbonate 600 mg-vitamin See Rx Instructions .Route 05/20/22 05/22/23 D3 10 mcg (400 unit) tablet .COMPLEX SUPPLIMENT cholecalciferol (vitamin D3) 25 25 mcg PO DAILY SUPPLIMENT 05/20/22 05/22/23 mcg (1,000 unit) capsule duloxetine 30 mg capsule,delayed See Rx Instructions .Route 05/20/22 05/22/23 release .COMPLEX MOOD levothyroxine 150 mcg tablet See Rx Instructions .Route 05/20/22 05/22/23 .COMPLEX THYROID pantoprazole 40 mg tablet,delayed See Rx Instructions .Route 06/25/22 05/22/23 release .COMPLEX . Previous Rx's Medication Instructions Recorded hydroxyzine pamoate 25 mg capsule 25 mg PO Q8H PRN anxiety #30 caps 06/29/20 (Vistaril) ergocalciferol (vitamin D2) 1,250 50,000 unit PO QWEEK Supplement 09/18/21 mcg (50,000 unit) capsule #14 caps fluticasone propionate 50 1 spray intranasal QDAY ALLERGIES 05/08/23 mcg/actuation nasal #16 grams spray,suspension (Flonase Allergy Relief) hydrocodone 5 mg-acetaminophen 325 1 tab PO Q4-6H PRN pain #30 tabs 05/08/23 mg tablet nebivolol 20 mg tablet 20 mg PO DAILY #30 tabs 05/08/23 Allergies Allergy/AdvReac Type Severity Reaction Status Date / Time morphine [MORPHINE] Allergy Intermediate I-RASH/ITCH Verified 05/22/23 09:47 [facility] Disclaimer: The information contained in this section may have been updated after the patient was seen, as this information can be updated by other users. 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 (Updated 05/31/23 @ 16:40 by David Monge MD) Ligamentum flavum hypertrophy Abdominal wall pain in right flank Tachycardia Bilateral serous otitis media Chronic pain Chronic otitis externa of right ear Neuroma Lumbar spondylolysis Right-sided low back pain with right-sided sciatica Otitis media Vitamin D deficiency (~06/26/17) Family History Other No significant family history Social History Smoking Status: Never smoker second hand exposure: No alcohol intake: never counseling provided: none substance use type: denies use current occupational status: retired Travel in the last 8 weeks: None household members: spouse housing: house 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 current occupational exposures/hazards: No caffeine: No ROS Obtained: Yes All systems reviewed & no additional complaints except as documented Physical Exam General General appearance: alert and in no apparent distress Head Head exam: atraumatic and normocephalic Eye Eye exam: Present normal appearance, PERRL and EOMI ENT ENT exam: Present mucous membranes moist Neck Neck exam: Present normal inspection, full ROM and trachea midline Respiratory Respiratory exam: Absent respiratory distress, wheezes, stridor, accessory muscle use or prolonged expiratory phase Cardiovascular Cardiovascular exam: Present normal rhythm Abdominal Exam Abdominal exam: Present soft; Absent distention, tenderness, guarding, rebound or rigidity Extremities Exam Extremities exam: Present edema and other (Swelling, tenderness about ankle, primarily on the lateral aspect at the malleolus. Neurovascularly intact) Neurological Exam Neurological exam: Present alert, oriented X3, CN II-XII intact and normal gait; Absent motor sensory deficit Skin Skin exam: Present warm and dry; Absent diaphoresis or erythema Medical Decision Making Medical Records Medical records reviewed: Yes I reviewed the patient's medical records. Deejay Inquiry Pt receiving controlled substance: No Deejay was queried for this patient: No Vital Signs: 05/31/23 15:15 05/31/23 15:31 05/31/23 16:01 Temperature 98.6 F Temperature Source Oral Pulse Rate 93 H 86 Pulse Rate [Right] 86 Respiratory Rate 18 18 18 Blood Pressure 169/89 H 160/74 H Blood Pressure [Right Arm] 169/79 H Blood Pressure Mean 112 102 Blood Pressure Mean [Right Arm] 109 02 Sat by Pulse Oximetry 96 100 99 Oxygen Delivery Method Room Air 05/31/23 16:30 Temperature Temperature Source Pulse Rate 84 Pulse Rate [Right] Respiratory Rate 18 Blood Pressure 168/71 H Blood Pressure [Right Arm] Blood Pressure Mean 108 Blood Pressure Mean [Right Arm] 02 Sat by Pulse Oximetry 100 Oxygen Delivery Method Orders (Tests/Meds): ED MEDICATIONS Discontinued Medications Generic Name Dose Route Start Last Admin Trade Name Enriqueq PRN Reason Stop Dose Admin Acetaminophen 1,000 mg 05/31/23 15:39 05/31/23 15:51 Acetaminophen 500mg Tab PO 05/31/23 15:40 1,000 mg ONCE ONE Administration Ibuprofen 600 mg 05/31/23 15:39 05/31/23 15:52 Ibuprofen 600 Mg Tablet PO 05/31/23 15:40 600 mg ONCE ONE Administration ORDERS Category Date Time Status Ankle XR -Right minimum 3 Views [XR ankle RT min 3V] Exams 05/31/23 15:39 Taken Stat Fibula/tibia XR right 2 views [XR tibia fibula RT 2V] Exams 05/31/23 15:39 Taken Stat Foot XR right minimum 3 views [XR foot RT min 3V] Stat Exams 04/20/24 15:39 Taken Medical Decision Narrative: 67-year-old female no relevant medical history presenting with right ankle pain. Patient states that she was trying to smooth out the wrinkles in swimming pool ladder, tripped on one of the wrinkles, landed on her right lower extremity. Did not hit her head or sustain any other trauma. Unable to bear weight on the right lower extremity secondary to pain. Pain is primarily lateral aspect of her right ankle, does not radiate, associated with swelling and severe pain. Has not taken anything for the pain as of yet.. History was obtained via conversation with patient and family. On arrival, patient hemodynamically stable, alert, oriented x4, appropriate, GCS 15, moving all extremities spontaneously, pupils equal and reactive to light. Full physical exam performed and significant for swelling and tenderness about ankle, primarily lateral malleolus. Neurovascularly intact. Differential includes fracture, sprain, strain, dislocation, among others. Patient was given Tylenol, Motrin, ice pack for symptomatic management and correction of underlying abnormalities. Workup independently interpreted and significant for Bojorquez fracture right ankle, concern for syndesmosis involvement, but not angulated, noncomminuted, nondisplaced. See radiology read for full review of final results. Orthopedics was contacted, recommended walking boot, nonweightbearing, follow-up in clinic. Because patient at baseline without signs or symptoms of clinical decompensation, deemed appropriate for discharge. Results were relayed to patient who voiced understanding and were agreeable to outpatient management and follow up. I discussed my clinical impression with patient and answered all questions. At this time, the evidence for any other entities in the differential is insufficient to warrant any further testing or ED observation. This was explained as well. Advisory was given that persistent or worsening symptoms require further evaluation. I confirmed the understanding of this discussion. Critical Care Critical Care Time Critical Care Time: No
[2023-05-31 16:01] VITALS: BP 160/74; PULSE 86; RESP 18; O2SAT 99
[2023-05-31 16:30] VITALS: BP 168/71; PULSE 84; RESP 18; O2SAT 100
[2023-05-31] MEDS: OXYCODONE 5MG IMMEDIATE RELEASE TABLET 5 MG PO (16:49)
[2023-05-31 16:57] VITALS: BP 168/71; PULSE 81; RESP 20; TEMP 36.7; O2SAT 97
--- NOTE | 2023-05-31 16:58 | PC.NURSE ---
crutches and ortho boot applied
== END 2023-05-31 16:59 | disposition home or self-care (01) ==
PROVIDERS: Emergency Provider Emergency Medicine; PCP Physician Assistant
DX: S82.831A Other fracture of upper and lower end of right fibula, initial encounter for closed fracture (principal); W01.10XA Fall on same level from slipping, tripping and stumbling with subsequent striking against unspecified object, initial encounter
CPT/HCPCS: 73590; 73610; 73630; 99284

== ENCOUNTER 2023-07-01 07:40 | Outpatient (CLI) | payer MEDICARE, MEDICAID, SELFPAY ==
--- NOTE | 2023-07-01 07:46 | XR_ITS ---
FINAL REPORT CLINICAL HISTORY: Rt ankle fx COMPARISON: None FINDINGS: RIGHT ANKLE 3 views of the right ankle were obtained. There is an oblique nondisplaced fracture of the distal fibula. There are questionable tiny avulsion fragments inferior to the medial malleolus. The mortise is intact. Visualized joint spaces are normally aligned. There is mild diffuse soft tissue edema about the ankle. IMPRESSION: Distal fibular fracture as above. Questionable tiny avulsion fragments. Mild diffuse soft tissue edema. Reviewed, Interpreted and Dictated by Wilbur Cespedes MD Transcribed by Ange White Authenticated and [facility]
== END 2023-07-01 23:59 | disposition home or self-care (01) ==
LOC: RAD 07:42
PROVIDERS: PCP Physician Assistant; Visit Provider Orthopaedic Surgery
DX: S82.64XA Nondisplaced fracture of lateral malleolus of right fibula, initial encounter for closed fracture; M25.571 Pain in right ankle and joints of right foot
CPT/HCPCS: 73610

== ENCOUNTER 2023-07-29 08:00 | Outpatient (CLI) | payer MEDICARE, MEDICAID, SELFPAY ==
--- NOTE | 2023-07-29 08:03 | XR_ITS ---
FINAL REPORT CLINICAL HISTORY: Rt ankle pain COMPARISON: 07/01/2023 FINDINGS: Three views of the right ankle a distal fibular fracture with slight distinct mild periosteal reaction. There is generalized osteopenia. The joint spaces appear normal. IMPRESSION: Further mild healing of minimally displaced distal fibular fracture. Reviewed, Interpreted and Dictated by Randall Merino MD Transcribed by Ange White Authenticated and [facility]
== END 2023-07-29 23:59 | disposition home or self-care (01) ==
LOC: RAD 08:01
PROVIDERS: PCP Physician Assistant; Visit Provider Orthopaedic Surgery
DX: M25.571 Pain in right ankle and joints of right foot (principal)
CPT/HCPCS: 73610

== ENCOUNTER 2023-08-07 07:35 | Outpatient (CLI) | payer MEDICARE, MEDICAID, SELFPAY ==
--- NOTE | 2023-08-07 07:38 | CA_ITS ---
FINAL REPORT TECHNIQUE: Spectral and color Doppler exam CLINICAL HISTORY: UNCONTROLLED HTN COMPARISON: None FINDINGS: DOPPLER RENAL VESSELS HISTORY: Hypertension . FINDINGS: Intrarenal resistive indices on the right are 0.6-0.68, normal . Intrarenal resistive indices on the left are 0.64-0.71, normal . Renal size is normal and symmetric. Right main renal artery systolic velocity: 162 cm/sec. Aortic-right renal artery flow velocity ratio: 1.9 COMMENT: Less than 50% luminal diameter stenosis right renal artery. Left main renal artery systolic velocity: 191 cm/sec. Aortic-left renal artery flow velocity ratio: 1.8 COMMENT: Less than 50% luminal diameter stenosis left renal artery. IMPRESSION: Less than 50% luminal diameter stenosis bilateral renal arteries. CTA or gadolinium-enhanced MR may be considered as a more sensitive exam. Alternatively noncontrast MRI may be considered for assessing main renal arteries for stenosis as a more sensitive exam if the patient has renal insufficiency. Reviewed, Interpreted and Dictated by Randall Merino MD Transcribed by Betty Harvey Authenticated and [facility]
== END 2023-08-07 23:59 | disposition home or self-care (01) ==
LOC: RT 07:36
PROVIDERS: PCP Family Medicine; Visit Provider Family Medicine
DX: I10 Essential (primary) hypertension (principal)
CPT/HCPCS: 93976

== ENCOUNTER 2023-09-09 08:31 | Outpatient (CLI) | payer MEDICARE, MEDICAID, SELFPAY ==
--- NOTE | 2023-09-09 08:36 | XR_ITS ---
FINAL REPORT CLINICAL HISTORY: Rt Ankle Pain COMPARISON: 07/29/2023 FINDINGS: Right ankle Three views were obtained. There is a healing fracture of the distal fibula. There is moderate diffuse soft tissue edema. IMPRESSION: Healing fracture as above. Reviewed, Interpreted and Dictated by Wilbur Cespedes MD Transcribed by Kimberlyn Whyte Authenticated and [facility]
== END 2023-09-09 23:59 | disposition home or self-care (01) ==
LOC: RAD 08:33
PROVIDERS: PCP Family Medicine; Visit Provider Orthopaedic Surgery
DX: M25.571 Pain in right ankle and joints of right foot (principal)
CPT/HCPCS: 73610

== ENCOUNTER 2023-09-26 08:06 | Outpatient (CLI) | payer MEDICARE, MEDICAID, SELFPAY ==
--- NOTE | 2023-09-26 08:07 | MM_ITS ---
PROCEDURE INFORMATION: Exam: MG Bilateral Screening 3D Mammography Exam date and time: 09/26/2023 8:00 AM Age: 67 years old Clinical indication: Screening exam TECHNIQUE: Imaging protocol: Bilateral Screening tomosynthesis and 2D mammography including computer-aided detection (CAD) when performed. COMPARISON: 1. MG MM DIG SCREENING MAMM BI W/CAD 07/05/2020 10:51 AM 2. MG SCBI MM Dig screening mamm BI w/CAD 06/02/2018 1:17 PM FINDINGS: MAMMOGRAPHY: Breast composition: There are scattered areas of fibroglandular density. Mass: No suspicious masses. Architectural distortion: None. Calcifications: No suspicious calcifications. Asymmetric density: None. Skin thickening: None. Axillary adenopathy: None. IMPRESSION: No mammographic evidence of malignancy. Annual screening is recommended unless otherwise clinically indicated. ASSESSMENT: BI-RADS Category 1: Negative
== END 2023-09-26 23:59 | disposition home or self-care (01) ==
LOC: RAD 08:07
PROVIDERS: PCP Family Medicine; Visit Provider Family Medicine
DX: Z12.31 Encounter for screening mammogram for malignant neoplasm of breast (principal)
CPT/HCPCS: 77063; 77067

== ENCOUNTER 2023-10-02 09:05 | Outpatient (CLI) | payer MEDICARE, MEDICAID, SELFPAY ==
[2023-10-02 20:11] LABS: T4 (Thyroxine) 10.2 ug/dl (5.53-11.0); Triiodothryronine (T3) Uptake 29 % (23.5-40.5)
[2023-10-02 20:24] LABS: Thyroid Stimulating Hormone 7.71 uIU/mL (0.465-4.68)
== END 2023-10-02 23:59 | disposition home or self-care (01) ==
LOC: LAB.DROPOF 10-03 09:06
PROVIDERS: PCP Family Medicine; Visit Provider Family Medicine
DX: E03.9 Hypothyroidism, unspecified (principal)
CPT/HCPCS: 84436; 84443; 84479

== ENCOUNTER 2023-10-07 08:11 | Outpatient (CLI) | payer MEDICARE, MEDICAID, SELFPAY ==
--- NOTE | 2023-10-07 08:14 | XR_ITS ---
FINAL REPORT CLINICAL HISTORY: Rt Shoulder Pain, limited mobility FINDINGS: RIGHT SHOULDER Two views demonstrate no acute fracture or dislocation. There are mild hypertrophic changes of osteoarthritis at the acromioclavicular joint. The glenohumeral joint is intact. The soft tissues are unremarkable. IMPRESSION: Degenerative changes with no acute bony abnormality. Reviewed, Interpreted and Dictated by Wilbur Cespedes MD Transcribed by Era Temple Authenticated and [facility]
== END 2023-10-07 23:59 | disposition home or self-care (01) ==
LOC: RAD 08:12
PROVIDERS: PCP Family Medicine; Visit Provider Physician Assistant
DX: M25.511 Pain in right shoulder (principal)
CPT/HCPCS: 73030

== ENCOUNTER 2023-10-21 07:29 | Outpatient (CLI) | payer MEDICARE, MEDICAID, SELFPAY ==
--- NOTE | 2023-10-21 07:30 | MR_ITS ---
FINAL REPORT CLINICAL HISTORY: Rt Shoulder Pain COMPARISON: None FINDINGS: Multiplanar MR imaging of the right shoulder was performed without contrast. There is motion artifact on many of the images decreasing sensitivity of this exam. There is a partial tear of the bursal surface of the distal supraspinatus tendon greater than 50% thickness. Moderate AC joint arthrosis is noted. There is spurring along the undersurface of the acromion. A large amount of fluid is seen in the bursa worrisome for bursitis. The glenoid labrum is intact. The long head of the biceps tendon is intact. No significant glenohumeral joint effusion is seen. There is no evidence of fracture or dislocation. The musculature is intact. There is no evidence of soft tissue mass. IMPRESSION: Partial tear distal supraspinatus tendon. Moderate AC joint arthrosis and spurring along the undersurface of the acromion. Possible bursitis. Reviewed, Interpreted and Dictated by Car Alcazar III, MD Transcribed by Ange White Authenticated and [facility]
== END 2023-10-21 23:59 | disposition home or self-care (01) ==
LOC: RAD 07:30
PROVIDERS: PCP Family Medicine; Visit Provider Physician Assistant
DX: M67.911 Unspecified disorder of synovium and tendon, right shoulder (principal)
CPT/HCPCS: 73221

== ENCOUNTER 2023-11-27 09:03 | Outpatient (CLI) | payer MEDICARE, MEDICAID, SELFPAY ==
--- NOTE | 2023-11-27 14:00 | XR_ITS ---
Final Report NAME: GRACIE ARAGON Codey / SEX: 1955 / Female MRN / ACC#: [id number] / [id number] ORDERING PHYSICIAN: Dawn Mann EXAM REQUESTED: [id number]--EMHR BONE DENSITY AXIAL SKELETON FACILITY: [facility] DATE: 11/27/2023 RADIOLOGIST NAME: Wilbur Cespedes CLINICAL HISTORY: screening FINDINGS: Using L1-4, the bone mineral density of the spine is 0.805 g/cm2, corresponding to T-score of -2.2. Using the right hip, the bone mineral density of the femoral neck is 0.657 g/cm2, corresponding to a T-score of -1.7. Using the distal one third, the bone mineral density of the right ulna is 0.574 g/cm2, corresponding to a T-score of -2.0. FRAX 10 year fracture risk is 31% for a hip fracture and 5.7% for a major osteoporotic fracture. IMPRESSION: Osteopenic bone mineral density of the lumbar spine, right hip, and right forearm NOTE: T-score: Standard deviation compared with peak bone mass of young adult mean. *Following the recommendations of the International Society of Bone densitometry, classification of hip BMD is based on the lower of two T-scores; total hip or femoral neck. Reviewed, Interpreted and Dictated by Wilbur Cespedes, Transcribed by Era Temple Signed by Wilbur Cespedes on 12/15/2023 7:42:45 PM, Eastern Time [facility]
== END 2023-11-27 23:59 | disposition home or self-care (01) ==
LOC: RAD 09:03
PROVIDERS: PCP Family Medicine; Visit Provider Family Medicine
DX: N95.9 Unspecified menopausal and perimenopausal disorder (principal); E03.9 Hypothyroidism, unspecified
CPT/HCPCS: 77080; 84443

== ENCOUNTER 2024-01-18 13:47 | Emergency (ER) | payer MEDICARE, MEDICAID, SELFPAY ==
[2024-01-18 14:45] VITALS: BP 220/96; PULSE 93; RESP 22; TEMP 36.7; O2SAT 98; BMI 30.5
--- NOTE | 2024-01-18 14:49 | XR_ITS ---
PROCEDURE INFORMATION: Exam: XR Chest Exam date and time: 01/18/2024 3:02 PM Age: 68 years old Clinical indication: Other: Congestion TECHNIQUE: Imaging protocol: Radiologic exam of the chest. Views: 2 views. Total images: 2 COMPARISON: CT ANGIO CHEST PE PROTOCOL 05/07/2023 7:38 PM FINDINGS: Lungs: Bilateral hyperinflation is present. Atelectatic changes noted within the right upper lobe and left lung base. Pleural spaces: Unremarkable. No pleural effusion. No pneumothorax. Heart/Mediastinum: The heart is not enlarged. Bones/joints: Slight leftward curvature of the thoracic spine with degenerative changes. Compression deformity midthoracic vertebrae present, age is indeterminate. IMPRESSION: 1. Bilateral hyperinflation is present. 2. Atelectatic changes noted within the right upper lobe and left lung base. 3. Compression deformity midthoracic vertebrae present, age is indeterminate.
--- NOTE | 2024-01-18 14:57 | ED_ITS ---
Discharge Plan Disposition Patient Disposition: Home, Self-Care Condition: Good Prescriptions Prescriptions: New prednisone 20 mg tablet 20 mg PO BID Qty: 10 0RF No Action meloxicam 7.5 mg tablet 7.5 mg PO DAILY Qty: 30 2RF azelastine 137 mcg (0.1 %) spray,non-aerosol 137 mcg intranasal BID PRN Rx Instructions: administer into each nostril omeprazole 20 mg capsule,delayed release(DR/EC) 20 mg PO DAILY Qty: 30 5RF alendronate 70 mg tablet See Rx Instructions .ROUTE .COMPLEX Qty: 14 0RF Rx Instructions: TAKE ONE TABLET BY MOUTH ONCE a WEEK amlodipine [Norvasc] 5 mg tablet 5 mg PO DAILY Qty: 90 2RF calcium carbonate-vitamin D3 600 mg-10 mcg (400 unit) tablet See Rx Instructions .ROUTE .COMPLEX Qty: 90 0RF Rx Instructions: TAKE ONE TABLET BY MOUTH EVERY DAY cholecalciferol (vitamin D3) 25 mcg (1,000 unit) capsule 25 mcg PO DAILY Qty: 90 0RF ergocalciferol (vitamin D2) 1,250 mcg (50,000 unit) capsule 50,000 unit PO QWEEK Qty: 14 3RF levothyroxine [Synthroid] 150 mcg tablet 150 mcg PO DAILY Qty: 90 3RF hydrocodone-acetaminophen 5-325 mg tablet 1 tab PO Q4-6H PRN (Reason: pain) Qty: 30 0RF Referrals Follow up/Referrals: Dawn Mann APRN [Primary Care Provider] - See instructions Activity Restrictions/Add. Instructions Additional Instructions/Restrictions: Motrin as needed Steroids as ordered Follow-up with PCP have thoracic spine investigated further If symptoms worsen or do not improve return Clinical Impressions Clinical Impression: Pain in rib Instructions Patient Instructions: DI for Muscle Spasm Print Language Print Language: [place] Discharge ED Provider: Lilli ([facility])Jose [facility] HPI General Stated complaint: lower back pain and side pain Mode of Arrival: Ambulatory Source of Information: Patient Limitations: No Limitations Time Seen by Provider: 01/18/24 14:50 Description of Symptoms (Recalled from Triage Doc. by RN): PATIENT STATES SHE HURT HER BACK CARRYING WOOD A FEW WEEKS AGO, BUT STATES IT STARTED FEELING BETTER. HOWEVER PATIENT STATES SHE HAD A COUGHING EPISODE RECENTLY AND STARTED HURTING AGAIN TO HER MID BACK AND BILATERAL RIB AREA HEENT Symptoms (Recalled from RN notes): No Resp Symptoms (Recalled from RN notes): No Skin Symptoms (Recalled from RN notes): No MS Symptoms (Recalled from RN notes): Yes Functional Status (Recalled from RN notes): WNL History of Present Illness Provider Complaint: 68-year-old female presents for bilateral rib and pain bet ween the shoulder blades. Patient states she hurt her back carrying some firewood a couple weeks ago and started to feel better and then she had a coughing episode recently and it started hurting again in her mid back and bilateral rib area. Patient states hurts worse with movement or coughing. Related Data Home Medications ?Medication ?Instructions ?Recorded ?Confirmed azelastine 137 mcg (0.1 %) nasal 137 mcg intranasal BID PRN 11/10/23 11/27/23 spray Previous Rx's ?Medication ?Instructions ?Recorded alendronate 70 mg tablet See Rx Instructions .Route 08/11/23 .COMPLEX N/A #14 tabs amlodipine 5 mg tablet (Norvasc) 5 mg PO DAILY #90 tabs 08/11/23 calcium 600 mg (as See Rx Instructions .Route 08/11/23 carbonate)-vitamin D3 10 mcg (400 .COMPLEX SUPPLIMENT #90 tabs unit) tablet cholecalciferol (vitamin D3) 25 25 mcg PO DAILY SUPPLIMENT #90 caps 08/11/23 mcg (1,000 unit) capsule ergocalciferol (vitamin D2) 1,250 50,000 unit PO QWEEK Supplement 08/11/23 mcg (50,000 unit) capsule #14 caps meloxicam 7.5 mg tablet 7.5 mg PO DAILY #30 tabs 09/09/23 Synthroid 150 mcg tablet 150 mcg PO DAILY #90 tabs 10/06/23 (levothyroxine) omeprazole 20 mg capsule,delayed 20 mg PO DAILY #30 caps 11/10/23 release hydrocodone 5 mg-acetaminophen 325 1 tab PO Q4-6H PRN pain #30 tabs 12/23/23 mg tablet prednisone 20 mg tablet 20 mg PO BID #10 tabs 01/18/24 Allergies Allergy/AdvReac Type Severity Reaction Status Date / Time morphine (MORPHINE) Allergy Intermediate I-RASH/ITCH Verified 11/27/23 08:35 ING Worker's Comp Is this a Worker's Comp case?: No [facility] Disclaimer: The information contained in this section may have been updated after the patient was seen, as this information can be updated by other users. 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) Smoking Status: Never smoker second hand exposure: No alcohol intake: never counseling provided: none substance use type: denies use current occupational status: retired Travel in the last 8 weeks: None household members: spouse housing: house 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 current occupational exposures/hazards: No caffeine: No ROS Obtained: Yes Systems reviewed as appropriate & no additional complaints except as documented Physical Exam General General appearance: alert and in no apparent distress Eye Eye exam: Present normal appearance and PERRL ENT ENT exam: Present normal exam, normal oropharynx, mucous membranes moist and TM's normal bilaterally Neck Neck exam: Present normal inspection Chest Chest inspection: Present normal inspection, symmetric chest wall rise and tenderness Respiratory Respiratory exam: Present normal lung sounds bilaterally Cardiovascular Cardiovascular exam: Present regular rate and normal rhythm Abdominal Exam Abdominal exam: Present soft and normal bowel sounds Neurological Exam Neurological exam: Present alert and oriented X3 Skin Skin exam: Present warm and intact Medical Decision Making Medical Records Medical records reviewed: Yes I reviewed the patient's medical records. Screening: Per USPSTF and CDC recommendations, given the prevalence of disease in our region, it is our hospital?s policy to screen for HIV and viral Hepatitis for all patients aged 18 and over and those with ongoing risk factors. Deejay Inquiry Pt receiving controlled substance: No Vital Signs: 01/18/24 14:45 Temperature 98.1 F Temperature Source Oral Pulse Rate [Left Brachial] 93 H Respiratory Rate 22 Blood Pressure [Left Arm] 220/96 H Blood Pressure Mean [Left Arm] 137 Blood Pressure Source [Left Arm] Automatic Cuff Blood Pressure Position [Left Arm] Sitting 02 Sat by Pulse Oximetry 98 Oxygen Delivery Method Room Air Orders (Tests/Meds): ORDERS Category Date Time Status CXR 2 view (NOT portable) [XR chest 2V] Stat Exams 01/18/24 14:49 Ordered Radiology Data #1: Image(s): Chest Image Reviewed: Yes I have reviewed radiologist's interpretation Preliminary Findings: Normal/NAD
[2024-01-18 16:34] VITALS: BP 220/96; PULSE 93; RESP 22; TEMP 36.7; O2SAT 98
== END 2024-01-18 16:37 | disposition home or self-care (01) ==
PROVIDERS: Emergency Provider Nurse Practitioner Family; PCP Family Medicine
DX: R07.82 Intercostal pain (principal)
CPT/HCPCS: 71046; 99213; G0381

== ENCOUNTER 2024-01-23 09:53 | Outpatient (CLI) | payer MEDICARE, MEDICAID, SELFPAY ==
[2024-01-23 19:19] LABS: Thyroid Stimulating Hormone 4.25 uIU/mL (0.465-4.68)
== END 2024-01-23 23:59 | disposition home or self-care (01) ==
LOC: LAB.DROPOF 01-24 09:13
PROVIDERS: PCP Family Medicine; Visit Provider Family Medicine
DX: E03.9 Hypothyroidism, unspecified (principal)
CPT/HCPCS: 84443

== ENCOUNTER 2024-06-17 08:09 | Outpatient (CLI) | payer MEDICARE, MEDICAID, SELFPAY ==
--- NOTE | 2024-06-17 08:14 | XR_ITS ---
FINAL REPORT CLINICAL HISTORY: rt knee pain FINDINGS: AP, lateral and oblique views of the right knee were obtained. There is no prior exam for comparison. There is no acute osseous abnormality of the right knee. Degenerative joint disease is most pronounced in the medial compartment. The soft tissues are normal. There is no joint effusion. IMPRESSION: Degenerative changes without acute osseous abnormality of the right knee. Reviewed, Interpreted and Dictated by Sinai Hinojosa MD Transcribed by Ange White Authenticated and [facility]
== END 2024-06-17 23:59 | disposition home or self-care (01) ==
LOC: RAD 08:10
PROVIDERS: PCP Family Medicine; Visit Provider Physician Assistant
DX: M25.561 Pain in right knee (principal)
CPT/HCPCS: 73562

== ENCOUNTER 2024-07-02 10:25 | Outpatient (CLI) | payer MEDICARE, MEDICAID, SELFPAY ==
[2024-07-02 17:58] LABS: Basophils % 0.5 % (0.1-2.0); Eosinophils # 0.1 Kmm3 (0.0-0.4); Eosinophils % 0.8 % (0.1-12.0); Hematocrit 45.5 % (37.0-47.0); Hemoglobin 15.1 g/dL (12.2-16.2); Immature Granulocytes # 0.02 10^3uL; Immature Granulocytes % 0.3 %; Lymphocytes # 2.5 K/mm3 (0.7-4.5); Lymphocytes % 38.2 % (10-50); Mean Corpuscular HGB Conc 33.2 g/dL (31.8-35.4); Mean Corpuscular Hemoglobin 29.5 pg (27.0-31.2); Mean Platelet Volume 10.6 fl (7.4-10.4); Monocytes # 0.4 K/mm3 (0.1-1.0); Monocytes % 6.7 % (1.7-9.3); Neutrophils # 3.5 K/mm3 (1.8-7.8); Neutrophils % 53.5 % (37.0-80.0); Nucleated Red Blood Cells # 0 10^3/uL; Nucleated Red Blood Cells % 0 %; Platelet Count 258 K/mm3 (142-424); Red Blood Count 5.11 M/mm3 (4.20-5.40); Red Cell Distribution Width 13.7 % (11.5-17.5); Red Cell Distribution Width-SD 44.8 fL; White Blood Count 6.5 K/mm3 (4.8-10.8)
[2024-07-02 18:13] LABS: Hemoglobin A1C 5.4 % (4.0-6.0)
[2024-07-02 18:34] LABS: Alanine Aminotransferase 22 U/L (12-78); Albumin Level 4.9 g/dl (3.5-5.0); Alkaline Phosphatase 75 U/L (38-126); Anion Gap 14.4 mEq/L (5-15); Aspartate Amino Transferase 27 U/L (14-36); Bilirubin,Total 0.6 mg/dl (0.2-1.3); Blood Urea Nitrogen 13 mg/dl (7-17); Calcium 9.7 mg/dl (8.4-10.2); Carbon Dioxide 27 mmol/L (22.0-30.0); Chloride 100 mmol/L (98-107); Chol/HDL Ratio 2.7 (1-3.5); Cholesterol 181 mg/dl (140-200); Estimated Glomerular Filt Rate 83 ml/min (>60); GFR (African American) 101 ML/MIN (>60); Globulin 2.5 g/dL (1.3-3.2); Glucose 101 mg/dl (74-100); HDL Cholesterol 66 mg/dl (40-60); Potassium 4.4 mmoL/L (3.5-5.1); Sodium 137 mmol/L (136-145); Total Protein,Serum 7.4 g/dl (6.3-8.2); Triglycerides 89 mg/dl (30-150); VLDL Cholesterol 18 mg/dL (0-40)
[2024-07-02 18:59] LABS: 25-OH Vitamin D, Total 20.6 ng/mL (30-100)
== END 2024-07-02 23:59 | disposition home or self-care (01) ==
LOC: LAB.DROPOF 07-06 10:56
PROVIDERS: PCP Family Medicine; Visit Provider Family Medicine
DX: Z00.00 Encounter for general adult medical examination without abnormal findings (principal); I10 Essential (primary) hypertension; E03.9 Hypothyroidism, unspecified; E55.9 Vitamin D deficiency, unspecified
CPT/HCPCS: 80053; 80061; 82306; 83036; 84443; 85025

== ENCOUNTER 2024-09-02 11:42 | Outpatient (CLI) | payer MEDICARE, MEDICAID, SELFPAY ==
[2024-09-02 16:36] LABS: Thyroid Stimulating Hormone 9.11 uIU/mL (0.465-4.68)
--- OUTSIDE RECORDS SUMMARY | 2024-09-06 11:47 | XMS_ITS | Clinical Summary ---
[facility] Address [address] [place] [address] Care Team Providers Care Associate Entertainment Editor Name Role Phone Jake Manriquez MD Primary Care Provider Allergies No known active allergies Medications No known medications Family History 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 Relation Name Comments Cancer Father Heart disease Mother Relation Name Status Comments Father Mother Social History Tobacco Use Types Packs/Day Years Used Date Smoking Tobacco: Never Abuse Screen Answer Date Recorded Unsafe at Home or Work/School Not on file Feels Threatened by Someone? Not on file 12/2022 Does Anyone Keep You from Co ntacting Others or Doint Things Outside the Home? Not on file 11/20/2022 Physical Sign of Abuse Present Not on file 1 Housing Stability Answer Date Recorded Current Living Arrangements Not on file 11/10 Potentially Unsafe Housing Conditions Not on george e 11/20/2022 Family and Community Support Answer Gabe e Recorded Help with Day-to-Day Activities Not on file 11/20/2022 Lonely or Isolated Not on file 11/20/2022 Employment Answer Date Recorded Do you want help finding or keeping work or a ale b? Not on file 11/20/2022 Disabilities Answer Date Recorded Concentrating, Remembering, or Making Decisions Difficulty Not on file 11/20/2022 Doing Errands Independently Difficulty Not on fi le 11/20/2022 Education Answer Date Recorded Help with school or training? Not on file Preferred Language Not on file 11/20/2022 Comments No Sex and Gender Information Value Date Recorded Sex Assigned at Not on file Legal Sex Female 11:08 AM EST Gender Identity Not on file Sexual Orientation Not on file Last Filed Vital Signs Vital Sign Reading Time Taken Comments Blood Pressure - - Pulse 69 03/03/2016 11:14 AM EST Temperature 36.9 C (98.4 F) 03/03/2016 11:14 AM EST Respiratory Rate 16 03/03/2016 11:14 AM EST Oxygen Saturation 98% 03/03/2016 11:14 AM EST Inhaled Oxygen Concentration - - Weight 91.4 kg (201 lb 6.4 oz) 03/03/2016 11:14 AM EST Height 177.8 cm (5' 10 ) 03/03/2016 11:14 AM EST Body Mass Index 28.9 03/03/2016 11:14 AM EST Plan of Treatment Health Maintenance Due Date Last Done Comments ANNUAL PHYSICAL 1955 DXA SCAN 1955 HEPATITIS C SCREENING 1955 TDAP/TD VACCINES (1 - Tdap) 11/27/1974 MAMMOGRAM 1995 COLOGUARD 11/27/2000 COLON CANCER SCREENING 5 YEAR SIGMOIDOSCOPY 11/27/2000 COLONOSCOPY 11/27/2000 COLORECTAL CANCER SCREENING 11/27/2000 CT COLONOGRAPHY 11/27/2000 FECAL OCCULT BLOOD TEST 11/27/2000 FIT Testing (1 year) 11/27/2000 Pneumococcal Vaccine 50+ (1 of 1 - PCV) 11/27/2005 ZOSTER VACCINE (1 of 2) 11/27/2005 COVID-19 Vaccine (1 - 2023- season) 2023 INFLUENZA VACCINE 11/10/2024 Insurance Care Teams Associate Entertainment Editor Relationship Specialty Start Date End Date Jake Manriquez MD [address] ATTN: [place] [address] PCP - General Emergency Medicine 03/03/16
== END 2024-09-02 23:59 ==
LOC: LAB.DROPOF 09-06 11:43
PROVIDERS: PCP Family Medicine; Visit Provider Family Medicine
DX: R79.89 Other specified abnormal findings of blood chemistry (principal)
CPT/HCPCS: 84443

== ENCOUNTER 2024-09-13 08:04 | Outpatient (CLI) | payer MEDICARE, MEDICAID, SELFPAY ==
--- NOTE | 2024-09-13 08:30 | US_ITS ---
FINAL REPORT TECHNIQUE: Real-time grayscale and color ultrasound of the thyroid was performed. CLINICAL HISTORY: enlarged thyroid COMPARISON: 07/20/2020 FINDINGS: The thyroid gland measures 5.4 x 1.7 x 1.8 cm on the right and 5.2 x 1.5 x 1.9 cm on the left. The parenchyma is unremarkable . Nodules: Mid right lobe 7 mm hypoechoic ovoid solid mass, TR 4. Left lower lobe hypoechoic focus 1.6 cm, TR 3. Left upper lobe 1.1 cm hypoechoic solid TR 3 nodule. IMPRESSION: Subcentimeter TR 4 nodule on the right and 2 TR 3 lesions on the left, none of which require biopsy. Follow-up in 1 year recommended per TI-RADS criteria. Reviewed, Interpreted and Dictated by Wilbur Cespedes MD Transcribed by Ange White Authenticated and [facility]
== END 2024-09-13 23:59 | disposition home or self-care (01) ==
LOC: RAD 08:05
PROVIDERS: PCP Family Medicine; Visit Provider Family Medicine
DX: E07.9 Disorder of thyroid, unspecified (principal); E04.1 Nontoxic single thyroid nodule
CPT/HCPCS: 76536

== ENCOUNTER 2024-11-08 09:00 | Outpatient (CLI) | payer MEDICARE, MEDICAID, SELFPAY ==
[2024-11-08 17:29] LABS: Thyroid Stimulating Hormone 13.20 uIU/mL (0.465-4.68)
--- OUTSIDE RECORDS SUMMARY | 2024-11-09 11:04 | XMS_ITS | Clinical Summary ---
[facility] Address [address] [place] [address] Care Team Providers Care Children'S Book Author Name Role Phone Jake Manriquez MD Primary [...] 11/27/2005 ZOSTER VACCINE (1 of 2) 11/27/2005 INFLUENZA VACCINE 09/10/2024 COVID-19 Vaccine (1 - 2023- season) 2024 Insurance Care Teams Children'S Book Author Relationship Specialty Start Date End Date Jake Manriquez MD [address] ATTN: [place] [address] PCP - General Emergency Medicine 03/03/16
== END 2024-11-08 23:59 ==
LOC: LAB.DROPOF 11-09 11:00
PROVIDERS: PCP Student in an Organized Health Care Education/Training Program; Visit Provider Student in an Organized Health Care Education/Training Program
DX: E03.9 Hypothyroidism, unspecified (principal)
CPT/HCPCS: 84443

== ENCOUNTER 2025-01-05 10:18 | Outpatient (CLI) | payer MEDICARE, MEDICAID, SELFPAY ==
--- OUTSIDE RECORDS SUMMARY | 2025-01-05 10:22 | XMS_ITS | Clinical Summary ---
[facility] [address] [place] [address] Care Team Providers Care Lead Radiologic Technologist Name Role Phone Jake Manriquez MD Primary [...] - 2023- season) 2024 Insurance Care Teams Lead Radiologic Technologist Relationship Specialty Start Date End Date Jake Manriquez MD [address] ATTN: [place] [address] PCP - General Emergency Medicine 03/03/16
--- NOTE | 2025-01-05 10:23 | XR_ITS ---
FINAL REPORT CLINICAL HISTORY: cough x 1 month COMPARISON: 01/18/2024 FINDINGS: PA and lateral views of the chest were obtained. The cardiac and mediastinal silhouettes are within normal limits. The lungs are clear. There is no pleural effusion or pneumothorax. Midthoracic compression fracture present on the prior exam. IMPRESSION: No radiographic evidence of acute cardiac or pulmonary disease. Reviewed, Interpreted and Dictated by Sinai Hinojosa MD Transcribed by Ange White Authenticated and [facility]
[2025-01-05 11:27] LABS: Albumin Level 5.2 g/dl (3.5-5.0); Anion Gap 11.2 mEq/L (5-15); Blood Urea Nitrogen 14 mg/dl (7-17); Calcium 10.1 mg/dl (8.4-10.2); Carbon Dioxide 25 mmol/L (22.0-30.0); Chloride 102 mmol/L (98-107); Creatinine,Serum 0.80 mg/dl (0.52-1.04); Estimated Glomerular Filt Rate 71 ml/min (>60); GFR (African American) 86 ML/MIN (>60); Glucose 108 mg/dl (74-100); Phosphorous 4.4 mg/dl (2.5-4.5); Potassium 4.2 mmoL/L (3.5-5.1); Sodium 134 mmol/L (136-145)
[2025-01-05 11:44] LABS: 25-OH Vitamin D, Total 40.8 ng/mL (30-100)
[2025-01-05 11:45] LABS: Free T4 (Free Thyroxine) 0.78 ng/dl (0.78-2.19)
[2025-01-05 11:59] LABS: Thyroid Stimulating Hormone 9.10 uIU/mL (0.465-4.68)
== END 2025-01-05 23:59 | disposition home or self-care (01) ==
LOC: RAD 10:20
PROVIDERS: PCP Student in an Organized Health Care Education/Training Program; Visit Provider Student in an Organized Health Care Education/Training Program
DX: E03.9 Hypothyroidism, unspecified (principal); R05.9 Cough, unspecified; M81.0 Age-related osteoporosis without current pathological fracture
CPT/HCPCS: 36415; 71046; 80069; 82306; 82523; 83970; 84080; 84439; 84443; 86376

== ENCOUNTER 2025-01-21 08:52 | Outpatient (CLI) | payer MEDICARE, MEDICAID, SELFPAY ==
--- NOTE | 2025-01-21 09:30 | XR_ITS ---
FINAL REPORT CLINICAL HISTORY: osteoporosis COMPARISON: 11/27/2023 FINDINGS: Using L1-4, the bone mineral density of the spine is 0.771 g/cm2, corresponding to T-score of -2.5. This is compatible with osteoporosis. The bone mineral density change versus baseline is -5.2%. Using the right forearm, the bone mineral density of the mid is 0.463 g/cm2, corresponding to a T-score of -2.6. This corresponds to osteoporosis. The bone mineral density has not previously been determined in the right forearm. Using the right hip, the bone mineral density of the femoral neck is 0.805 g/cm2, corresponding to a T-score of -1.1. This corresponds to osteopenia. The bone mineral density change versus baseline is -2.7%. NOTE: T-score: Standard deviation compared with peak bone mass of young adult mean. *Following the recommendations of the International Society of Bone densitometry, classification of hip BMD is based on the lower of two T-scores; total hip or femoral neck. IMPRESSION: Diminished bone mineral density in the lumbar spine and right forearm, consistent with osteoporosis. Diminished bone mineral density in the right hip, consistent with osteopenia. Reviewed, Interpreted and Dictated by Wilbur Cespedes MD Transcribed by Betty Harvey Authenticated and [facility]
== END 2025-01-21 23:59 | disposition home or self-care (01) ==
LOC: RAD 08:52
PROVIDERS: PCP Student in an Organized Health Care Education/Training Program; Visit Provider Student in an Organized Health Care Education/Training Program
DX: M81.0 Age-related osteoporosis without current pathological fracture (principal)
CPT/HCPCS: 77081

== ENCOUNTER 2025-02-01 06:03 | Outpatient (CLI) | payer MEDICARE, MEDICAID, SELFPAY ==
--- NOTE | 2025-02-01 | CA_ITS ---
APPROVED REPORT Exam: Pharmacologic Technologist: Nadia Ding Stress Nurse: Lety HURT, RN Ht: 5 ft 10 in Wt: 201 lbs BSA: 2.09 m2 HR: 66 bpm BP: 187/82 mmHg Indications: Chest pain, Dyspnea Stress Test Details Test: Lexiscan HR Resting HR: 66 bpm Max Heart Rate (APMHR): 151.286598 bpm Max HR Achieved: 97 bpm Target HR (85% APMHR): 128.032640 bpm % of APMHR: 64.24 Recovery HR: 79 bpm BP Resting BP: 187.0/82.0 mmHg Max BP: 176.0/79.0 mmHg Recovery BP: 167.0/82.0 mmHg ECG Resting ECG: Sinus rhythm, PVC Stress ECG Conclusion Lungs clear to auscultation prior to test start. Symptoms: None Arrhythmias/Ectopy: PVC/PAC ST-T Changes: Less than 0.[address] segment changes. Conclusion: Nondiagnostic ECG/Lexiscan Electronically signed by : Korina Sherman MD 02/02/2025 21:10:18
--- OUTSIDE RECORDS SUMMARY | 2025-02-01 06:06 | XMS_ITS ---
Laboratory report Created on: January 15, 2025 GRACIE ARAGON : 1955 Sex: Female Author Name [facility] Unknown PROBLEMS Problems List Code Description RESULTS Laboratory Orders Date Order Code Test 2025-01-05 633005 ALK PHOSPHATASE, BONE SPECIFIC 2025-01-05 [id number] C-TELOPEPTIDE, S RUDY 2025-01-05 [id number] THYROID PEROXIDA SE (TPO) AB Laboratory Results Date LOINC Test Value Unit Reference Range Interpre tation 2025-01-05 [id number] ALK PHOSPHATASE, BONE SPECIFIC 17.5 UG/L 2025-01-05 [id number] PDF IMAGE 2025-01-05 [id number] C-TELOPEPTIDE, SERUM 560 PG/ML 2025-01-05 [id number] THYROID PEROXIDA SE (TPO) AB 196 IU/ML 0-34 H
--- OUTSIDE RECORDS SUMMARY | 2025-02-01 06:06 | XMS_ITS | Clinical Summary ---
[facility] Address [address] [place] [address] Care Team Providers Care Modeling Director Name Role Phone Jake Manriquez MD Primary [...] - 2023- season) 2024 Insurance Care Teams Modeling Director Relationship Specialty Start Date End Date Jake Manriquez MD [address] ATTN: [place] [address] PCP - General Emergency Medicine 03/03/16
--- NOTE | 2025-02-01 06:30 | NM_ITS ---
APPROVED REPORT Exam: Nuclear Stress Test Indication: SOB, HTN Patient Location: Outpatient Stress Tech: Nadia Ding NM Tech:Sherrell CollazoLOUISAT, RT (R)(N) Ht: 5 ft 10 in Wt: 203 lbs Bra Size: 42C HR: 71 bpm BP: 187/82 mmHg BSA: 2.10 m2 TID: 1.08 BMI: 29.1 History: SOB, HTN Procedure: Patient received 0.4 mg of intravenous Lexiscan, resting heart rate 71 bpm, resting blood pressure 187/82 mmHg, with Lexiscan maximum heart rate achieved was 97 bpm which is % of the maximum predicted heart rate and blood pressure was 176/79 mmHg. With Lexiscan, patient denied any complaint of chest pain. Cardiac Stress and Resting SPECT Images: Cardiac Stress and Resting SPECT images were obtained using technetium 99m Myoview 32.4 mCi stress and 10.74 mCi at rest. Resting and stress imaging in supine and prone positions demonstrate no evidence of fixed or reversible perfusion defects. Gated imaging demonstrates normal global LV systolic function. LVEF is calculated at 66%. Conclusion: No evidence of fixed or reversible perfusion defects. Gated imaging demonstrates normal global LV systolic function. LVEF is calculated at 66%. Electronically signed by : Korina Sherman MD 02/02/2025 20:53:29
[2025-02-01 08:05] VITALS: BP 187/82; PULSE 66; RESP 16
[2025-02-01] MEDS: ISOTOPE MYOVIEW (PER STUDY) 1 DOSE IV (08:15)
[2025-02-01] MEDS: SODIUM CHLORIDE 0.9% 10ML SYR (RAD ONLY) 10 ML IV ×2 (08:15)
--- NOTE | 2025-02-01 08:45 | CA_ITS ---
APPROVED REPORT EXAM: Comprehensive 2D, Doppler, and color-flow Echocardiogram Account Liaison: Debo Nam RVT Ht: 5 ft 10 in Wt: 201lbs BSA: 2.09 BP: 158/84 mmHg Indications: ANGINA,CORONARY ARTERY DISEASE 2D Dimensions IVSd 1.00 cm F: 0.6-1.0 LVEF (Visual) 77.90 % PWd 0.66 cm F: 0.6 - 1.0 LA Volume 57.00 mL LVDd 4.39 cm F: 3.9 - 5.3 LA Volume Index 27.27 mL/m2 (M/F) 16-34 LVDs 2.36 cm F: 2.2 - 3.5 M-Mode Dimensions LA Diam 3.84 cm (1.9-4.0) TAPSE 2.46 (<1.7) LV Diastology E Decel Time 180 (160-240 msec) E/A Ratio 0.9 Aortic Valve MATHEUS Index 1.93 cm2/m2 AoV Peak Joaquin. 116.0 (50-130 cm/s) AO Peak GR. 5.40 mmHg AO Mean GR. 3.50 (<5 mmHg) AO VTI 27.1 (18-25 cm) MATHEUS (VTI) 4.14 (2.5-4.5 cm2) Mitral Valve MV E Max Joaquin. 97.0 (40-130 cm/s) MV A Velocity 105.0 (40-130 cm/s) E/A Ratio 0.92 MV PHT 53.0 ms Pulmonary Valve PV Peak Velocity 71.0 (50-150 cm/s) Tricuspid Valve TR P. Velocity 220.00 cm/s RAP Estimate 8.00 mmHg RVSP 27.30 mmHg Left Ventricle The left ventricle is normal size. Left ventricular systolic function is normal. The left ventricular ejection fraction is within the normal range. Proximal septal thickening is present. There is normal LV segmental wall motion. The left ventricular diastolic function is normal. LVEF is 55% Right Ventricle The right ventricle is normal size. The right ventricular systolic function is normal. Atria The left atrium is mildly dilated. The right atrium is mildly dilated. There is no color Doppler evidence of interatrial shunt. Aortic Valve The aortic valve is mildly thickened. There is no hemodynamically significant aortic valvular stenosis. Trace aortic regurgitation is present. Mitral Valve The mitral valve is normal in structure. No evidence of mitral valve stenosis. Mild mitral regurgitation is present. Tricuspid Valve The tricuspid valve leaflets are thin and pliable. Trace tricuspid regurgitation. There is insufficient TR jet to estimate RVSP. Pulmonic Valve The pulmonary valve is grossly normal in structure. Trace pulmonic valve regurgitation is present. Great Vessels The aortic root is normal in size. IVC is normal in size and collapses >50% with inspiration. Pericardium There is no pericardial effusion. Other Information Study Quality: Fair Conclusion Normal biventricular systolic function. Mild biatrial dilation. Mild MR. Electronically signed by : Korina Sherman MD 02/11/2025 11:44:15
--- NOTE | 2025-02-01 10:00 | MM_ITS ---
PROCEDURE INFORMATION: Exam: MG Bilateral Screening 3D Mammography Exam date and time: 02/01/2025 9:49 AM Age: 69 years old Clinical indication: Screening examination TECHNIQUE: Imaging protocol: Bilateral Screening tomosynthesis and 2D mammography including computer-aided detection (CAD) when performed. COMPARISON: MG MM DIG SCREENING MAMM BI W/CAD 09/26/2023 8:00 AM FINDINGS: MAMMOGRAPHY: Breast composition: The breasts are almost entirely fatty. Mass: None. Architectural distortion: None. Calcifications: No suspicious calcifications. Asymmetric density: None. Skin thickening: None. Axillary adenopathy: None. IMPRESSION: No mammographic evidence of malignancy. Annual screening is recommended unless otherwise clinically indicated. ASSESSMENT: BI-RADS Category 1: Negative.
== END 2025-02-01 23:59 | disposition home or self-care (01) ==
LOC: RAD 06:04
PROVIDERS: PCP Student in an Organized Health Care Education/Training Program; Visit Provider Family Medicine
DX: Z12.31 Encounter for screening mammogram for malignant neoplasm of breast (principal); I34.0 Nonrheumatic mitral (valve) insufficiency; I11.9 Hypertensive heart disease without heart failure; I49.1 Atrial premature depolarization; I49.3 Ventricular premature depolarization; R94.31 Abnormal electrocardiogram [ECG] [EKG]; I48.0 Paroxysmal atrial fibrillation; R92.313 Mammographic fatty tissue density, bilateral breasts; I25.118 Atherosclerotic heart disease of native coronary artery with other forms of angina pectoris
CPT/HCPCS: 77063; 77067; 78452; 93017; 93018; 93306; A9502; J2785

== ENCOUNTER 2025-02-09 10:38 | Outpatient (CLI) | payer MEDICARE, MEDICAID, SELFPAY ==
--- OUTSIDE RECORDS SUMMARY | 2025-02-09 10:42 | XMS_ITS | Clinical Summary ---
[facility] [address] [place] [address] Care Team Providers Care Entry Rep Name Role Phone Jake Manriquez MD Primary Care Provider [phone] Allergies No known active allergies Medications No [...] - 2023- season) 2024 Insurance Care Teams Entry Rep Relationship Specialty Start Date End Date Jake Manriquez MD [address] ATTN: [place] [address] PCP - General Emergency Medicine 03/03/16
[2025-02-09 11:49] LABS: Albumin Level 4.6 g/dl (3.5-5.0); Anion Gap 8.4 mEq/L (5-15); Blood Urea Nitrogen 14 mg/dl (7-17); Calcium 9.2 mg/dl (8.4-10.2); Carbon Dioxide 28 mmol/L (22.0-30.0); Chloride 106 mmol/L (98-107); Creatinine,Serum 0.90 mg/dl (0.52-1.04); Estimated Glomerular Filt Rate 62 ml/min (>60); GFR (African American) 75 ML/MIN (>60); Glucose 88 mg/dl (74-100); Phosphorous 3.9 mg/dl (2.5-4.5); Potassium 4.4 mmoL/L (3.5-5.1); Sodium 138 mmol/L (136-145)
[2025-02-09 12:05] LABS: Free T4 (Free Thyroxine) 0.72 ng/dl (0.78-2.19)
[2025-02-09 12:20] LABS: Thyroid Stimulating Hormone 12.20 uIU/mL (0.465-4.68)
[2025-02-10 16:15] LABS: Albumin 4.1 g/dL (2.9-4.4); Alpha-1-Globulin 0.2 g/dL (0.0-0.4); Alpha-2-Globulin 0.6 g/dL (0.4-1.0); Gamma Globulin 1.0 g/dL (0.4-1.8)
[2025-02-11 15:53] LABS: Calcium, Ionized 5.1 mg/dL (4.5-5.6)
== END 2025-02-09 23:59 | disposition home or self-care (01) ==
LOC: LAB 10:39
PROVIDERS: PCP Student in an Organized Health Care Education/Training Program; Visit Provider Student in an Organized Health Care Education/Training Program
DX: E03.9 Hypothyroidism, unspecified (principal); R79.89 Other specified abnormal findings of blood chemistry
CPT/HCPCS: 36415; 80069; 82330; 83970; 84155; 84165; 84439; 84443